=== PATIENT | female | born 1970 | race Caucasian/White ===

== ENCOUNTER 2016-08-16 10:15 | Emergency (ER) | payer BC ==
[~2016-08-16] VITALS: Ht 177.8 cm; Wt 130.2 kg
[~2016-08-16 10:15] MED LIST: DCS100C PO; ESTR1TAB24 PO; HYDR1TAB75 PO; IBP800T PO; KETO-22 PO; LEVO250T PO; LVT.05T PO; NAPR-243 PO; PHEN-452 PO; RIZA10TA37 PO; SPIR25TA PO; TOPI100T11 PO; TRM50T PO
--- OUTSIDE RECORDS SUMMARY | 2016-08-16 10:22 | XMS REPORT | Continuity of Care Document ---
Author Author [facility] Organization [facility] Address Unknown Phone Unavailable Care Team Providers Care Display Artist Name Role Phone SUREKHA GAUTHIER MD PCP Insurance Providers Payer Name Policy Number Subscriber Name Relationship [facility] [id number] Ebony Light 18 Self / Same As Patient Advance Directives Directive Response Recorded Date/Time Advance Directives No 02/20/16 10:32am Health Care Power of Meteorological Engineer No 02/20/16 10:32am Organ Donor Yes 02/20/16 10:32am Resuscitation Status Full Code 02/20/16 10:32am Chief Complaint and Reason for Visit Chief Complaint Upper Extremity Reason for Visit [id number] Fall Knee contusion Problems Active Problems Medical Problem Onset Date Status Fall Unknown Acute Knee contusion Unknown Acute Wrist sprain Unknown Acute Medications Current Home Medications Medication Dose Units Route Directions Days/Qty Instructions Start Date Estradiol 1 Mg 1 Mg Oral Daily 09/16/10 Levothyroxine Sodium (Levothroid) 50 Mcg 1 Each Oral Daily 09/12/12 Topiramate 100 Mg 100 Mg Oral Twice A Day 11/04/15 Phentermine Hcl 30 Mg 30 Mg Oral Daily 11/04/15 Rizatriptan Benzoate 10 Mg 10 Mg Oral As Needed as needed for Migraine 11/04/15 Topiramate 100 Mg 100 Mg Oral Twice A Day 02/20/16 Spironolactone 25 Mg 25 Mg Oral Daily 02/20/16 Past Home Medications Medication Directions Ordered Status Docusate Sodium 100 Mg Capsule, 100 Mg Oral Twice A Day 09/21/10 Discontinued Levofloxacin 250 Mg Tab, 250 Mg Oral Daily 09/21/10 Discontinued Ibuprofen 800 Mg Tab, 800 Mg Oral Every 6 Hours 09/21/10 Discontinued Acetaminophen/Hydrocodone Bitart (Lorcet Plus) 1 Each Tablet, 1 - 2 Each Oral Every 3 Hours as needed 09/21/10 Discontinued Naproxen 500 Mg Tablet, 1 Each Oral Three Times A Day And Prn 07/03/11 Discontinued Tramadol Hcl 50 Mg Tab, 50 Mg Oral Q4-6HOURS as needed 07/03/11 Discontinued Ketorolac Tromethamine 10 Mg Tablet, 10 Mg Oral Every 8HRS as needed Discontinued Social History Social History Problem Response Recorded Date/Time Alcohol Use Denies Use 09/12/2012 7:14pm Recreational Drug Use No 09/12/2012 7:14pm Recent Foreign Travel No 02/20/2016 10:28am Recent Infectious Disease Exposure No 02/20/2016 10:28am Sexually Transmitted Disease No 02/20/2016 10:32am Smoking Status Never a Smoker 02/20/2016 10:32am Query Response Start Date Stop Date Smoking Status Never a Smoker Hospital Discharge Instructions No hospital discharge instructions. Plan of Care Discharge Date 02/20/16 11:34am Disposition 01 HOME, SELF-CARE Condition at Discharge Improved Instructions/Education Provided Wrist Injury (DC) Prescriptions See Medication Section Referrals SUREKHA GAUTHIER MD - Primary Care Physician SENAIT NEGRON DO - Additional Instructions/Education 1. Tylenol and Motrin for pain 2. Wear the wrist splint for the next 3 days 3. Use an ice pack to the wrist for 20 minutes every 2-3 hours 4. If pain in the thumb persists beyond a week, follow up with Dr Negron ( hand surgeon) for further evaluation 3. All discharge instructions reviewed with patient and/or family. Voiced understanding. Functional Status No functional status results. Allergies, Adverse Reactions, Alerts Allergen Type Severity Reaction Status Last Updated Erythromycin base Allergy Mild ABD PAIN Active 07/20/09 OPIATES Allergy Mild Active 07/20/09 Immunizations No immunization records. Vital Signs Acute Vital Signs Vital Response Date/Time Temperature (Fahrenheit) 96.4 degrees F (97.6 - 99.5) 02/20/2016 10:28am Temperature (Calculated Celsius) 35.30743 degrees C (36.4 - 37.5) 02/20/2016 10:28am Temperature Source Temporal 02/20/2016 10:28am Pulse Rate (adult) 106 bpm (60 - 90) 02/20/2016 10:28am Respiratory Rate 22 bpm (12 - 24) 02/20/2016 10:28am O2 Sat by Pulse Oximetry 100 % (88 - 100) 02/20/2016 10:28am Blood Pressure 142/85 mm Hg 02/20/2016 10:28am Blood Pressure Mean 104 mm Hg 02/20/2016 10:28am Pain Numeric Pain Scale 8 02/20/2016 10:28am Height (Feet) 5 feet 02/20/2016 10:28am Height (Inches) 8.00 inches 02/20/2016 10:28am Height (Calculated Centimeters) 172.856450 cm 02/20/2016 10:28am Weight (Pounds) 282 pounds 02/20/2016 10:28am Weight (Ounces) 0.0 oz 02/20/2016 10:28am Weight (Calculated Grams) 197789.050 gm 02/20/2016 10:28am Weight (Calculated Kilograms) 127.668909 kilograms 02/20/2016 10:28am Calculated BMI 42.9 02/20/2016 10:28am Capillary Refill Capillary Refill Less Than 3 Seconds 02/20/2016 10:28am Results No known relevant diagnostic tests, laboratory data and/or discharge summary. Procedures No known history of procedures. Encounters Encounter Location Arrival/Admit Date Discharge/Depart Date Attending Provider Departed Emergency Room [facility] 02/20/16 10:22am 11:34am VARGAS WREN APRN Recent Diagnosis
--- NOTE | 2016-08-16 11:03 | ED Lower Extremity ---
General Chief Complaint: Lower Extremity Stated Complaint: FALL RIGHT KNEE/LEG PAIN Nursing Triage Note: AMB TO ROOM WITH CRUTCHES NUCLEAR PHYSICIAN TRIPPED AND FELL ON R KNEE PAIN AFTER DID NOT TAKE ANY OTC MEDS FOR PAIN Nursing Sepsis Screen: No Definite Risk Source: patient History of Present Illness Time seen by provider: 10:47 Initial Comments PT ARRIVES VIA POV FROM HOME, USING CRUTCHES PT STATES SHE TRIPPED AND FELL, LANDING ON RIGHT KNEE ON CARPET OCCURRED IMMEDIATELY PRIOR TO ARRIVAL NO OTHER INJURIES NO PREVIOUS INJURIES OR PROBLEMS WITH THIS KNEE NO PARESTHESIAS OR MOTOR DEFICITS PCP: DR. GAUTHIER Allergies and Home Medications Allergies Coded Allergies: erythromycin base (Unverified Allergy, Mild, ABD PAIN, 07/20/09) Uncoded Allergies: OPIATES (Allergy, Mild, 07/20/09) Home Medications Estradiol 1 Mg Tablet 1 MG PO DAILY (Reported) Levothyroxine Sodium 50 Mcg Tablet 1 EACH PO DAILY (Reported) Rizatriptan Benzoate 10 Mg Tablet 10 MG PO PRN PRN PRN MIGRAINE (Reported) Topiramate 100 Mg Tablet 100 MG PO BID (Reported) Constitutional: no symptoms reported Musculoskeletal: see HPI Skin: no symptoms reported Psychiatric/Neurological: No Symptoms Reported Past Ycmreib-Luuxai-Ylakkh Hx Patient Social History Alcohol Use: Denies Use Recreational Drug Use: No Smoking Status: Never a Smoker Recent Foreign Travel: No Contact w/Someone Who Travel: No Recent Infectious Disease Expo: No Recent Hopitalizations: No Physical Abuse Screen: No Sexual Abuse: No Immunizations Up To Date Date of Influenza Vaccine: Apr 22, 2016 Seasonal Allergies Seasonal Allergies: No Surgeries HX Surgeries: Yes (CYSTOSCOPY, LEFT THYROIDECTOMY; CYSTOSCOPY) Surgeries: Bladder Surgery, Hysterectomy, Thyroidectomy, Tonsillectomy Respiratory Hx Respiratory Disorders: No Cardiovascular Hx Cardiac Disorders: No Neurological Hx Neurological Disorders: Yes Neurological Disorders: Headaches /Migraines Reproductive System Hx Reproductive Disorders: No (cystoscopy) Sexually Transmitted Disease: No PRIMER CHARGER History: Hysterectomy Genitourinary Hx Genitourinary Disorders: Yes (BEVERLY., CYSTOSCOPY) Genitourinary Disorders: UTI-Chronic Gastrointestinal Hx Gastrointestinal Disorders: No Musculoskeletal Hx Musculoskeletal Disorders: No Endocrine Hx Endocrine Disorders: Yes Endocrine Disorders: Hypothyroidsim HEENT HX ENT Disorders: No Cancer Hx Cancer: No Psychosocial Hx Psychiatric Problems: No Integumentary HX Skin/Integumentary Disorder: No Blood Transfusions Hx Blood Disorders: No Physical Exam Vital Signs Vital Sign - Last 12Hours 08/16/16 10:27 Temp 98.6 Pulse 96 Resp 18 B/P 134/80 Pulse Ox 98 O2 Delivery Room Air Capillary Refill : Less Than 3 Seconds General Appearance: no apparent distress obese Hips: bilateral hip non-tender, bilateral hip normal inspection, bilateral hip normal range of motion, bilateral hip no evidence of injury Legs: bilateral leg non-tender, bilateral leg normal inspection, bilateral leg normal range of motion, bilateral leg no evidence of injury Knees: left knee normal inspection, right knee bone tenderness, right knee ecchymosis, right knee soft tissue tenderness, right knee swelling, right knee other (UNABLE TO DETERMINE LIGAMENT LAXITY DUE TO PT DISCOMFORT AND BODY HABITUS ) Ankles: bilateral ankle non-tender, bilateral ankle normal inspection, bilateral ankle normal range of motion, bilateral ankle no evidence of injury Feet: bilateral foot non-tender, bilateral foot normal inspection, bilateral foot normal range of motion, bilateral foot no evidence of injury Neurologic/Tendon: normal sensation normal motor functions normal tendon functions Neurologic/Psychiatric: vermin exterminator II-XII nml as tested no motor/sensory deficits alert normal mood/affect oriented x 3 Skin: normal color warm/dry Progress/Results/Core Measures Results/Orders My Orders Orders-SEAN CLANCY DO Knee, Right, 3 Views (08/16/16 10:49) Vital Signs/I&O Vital Sign - Last 12Hours 08/16/16 10:27 Temp 98.6 Pulse 96 Resp 18 B/P 134/80 Pulse Ox 98 O2 Delivery Room Air Blood Pressure Mean: 98 Diagnostic Imaging Comments XRAYS RIGHT KNEE--NO ACUTE PROCESS, PER RADIOLOGIST REPORT @ 1133 Reviewed: Reviewed by Me Departure Impression Impression: Primary Impression: Contusion of right knee, initial encounter Disposition: HOME, SELF-CARE Condition: Stable Departure-Patient Inst. Referrals: SUREKHA GAUTHIER MD (PCP/Family) Primary Care Physician Patient Instructions: Knee Sprain (DC) Add. Discharge Instructions: ICE TO AREA AT 20 MINUTE INTERVALS MEREDITH WRAP AND CRUTCHES NEEDED FOR COMFORT ELEVATE LEG MUCH POSSIBLE FOLLOW UP WITH YOUR DR IN 1 WEEK IF NO BETTER All discharge instructions reviewed with patient and/or family. Voiced understanding. SEAN CLANCY DO Aug 16, 2016 11:03
--- NOTE | 2016-08-16 11:32 | Diagnostic Imaging Report ---
INDICATION: Right knee injury after a fall 3 views of the right knee show no fracture or dislocation. IMPRESSION: Negative right knee Dictated by: Dictated on workstation # [id number]
[2016-08-16 11:50] VITALS: BP 134/80
== END 2016-08-16 11:53 | disposition home or self-care (01) ==
LOC: EDUNIT# 10:15 → ER 10:18
DX: S80.01XA Contusion of right knee, initial encounter (principal); W01.0XXA Fall on same level from slipping, tripping and stumbling without subsequent striking against object, initial encounter; Y92.009 Unspecified place in unspecified non-institutional (private) residence as the place of occurrence of the external cause; Y99.8 Other external cause status
CPT/HCPCS: 73562

== ENCOUNTER → 2016-10-24 | Outpatient (CLI) | payer BC ==
--- NOTE | 2016-10-24 19:15 | Diagnostic Imaging Report ---
INDICATION: Digital mammogram bilateral screening. This study was compared to the prior exams of 10/22/15, 10/20/14 and 10/06/13. At this time, there are no current complaints. The current study was also evaluated with a Computer Aided Detection (CAD) system. FINDINGS: Fibroglandular tissue in both breasts is heterogeneously dense. This does limit the sensitivity of this exam. Deep in the mid medial aspect of the right breast on the craniocaudad view approximately 11 cm from the nipple, there is a vague 1 cm density. There may be a corresponding density just superior to the nipple line on the MLO view. This density may merely be secondary to fibroglandular tissue. Even so, I would recommend that a compression view of this area be obtained in the CC and MLO projections for further study. A true lateral view should also be performed. If this density persists, then ultrasound may be necessary as well. The overall appearance of the breasts is otherwise no different. There is no primary or secondary sign of malignancy noted. IMPRESSION: Additional mammographic views of the right breast would be recommended for further study. Ultrasound may also be necessary. ACR BI-RADS Category 0: Incomplete. (Needs additional imaging evaluation). Result letter will be mailed to the patient. Note: At least 10% of breast cancer is not imaged by mammography. Dictated by: Dictated on workstation # [id number]
== END ==
LOC: RAD 08:17
PROVIDERS: ATTEND Obstetrics & Gynecology
DX: Z12.31 Encounter for screening mammogram for malignant neoplasm of breast (principal)
CPT/HCPCS: 77067

== ENCOUNTER → 2016-10-27 | Outpatient (CLI) | payer BC ==
--- NOTE | 2016-10-27 09:58 | Diagnostic Imaging Report ---
Right breast diagnostic mammogram. CAD is utilized. INDICATION: Focal asymmetry in the medial upper aspect of the right breast. COMPARISON: 10/24/2016, and other prior exams submitted. FINDINGS: Focal asymmetry is persistent with faint density along the upper medial aspect of the right breast measuring 1 cm. It has lobulated margins. IMPRESSION: Persistent lobulated focal asymmetry in the upper medial aspect of the right breast. Ultrasound evaluation pending. ACR BI-RADS Category 0: Incomplete. (Needs additional imaging evaluation). Result letter will be mailed to the patient. Note: At least 10% of breast cancer is not imaged by mammography. Dictated by: Dictated on workstation # [id number]
--- NOTE | 2016-10-27 19:49 | Diagnostic Imaging Report ---
EXAMINATION: Right breast ultrasound. INDICATION: Focal asymmetry in the upper mid aspect of the right breast. FINDINGS: At the 2 o'clock zone, 6 cm from the nipple, there is a 1.2 x 0.6 x 0.9 cm elongated simple-appearing cyst seen matching the mammographic abnormality. The four quadrants and retroareolar region demonstrate no other abnormality. IMPRESSION: The focal asymmetry seen on mammography is a simple cyst. No suspicious lesion. Annual screening mammograms recommended. ACR BI-RADS Category 2: Benign findings. Dictated by: Dictated on workstation # [id number]
== END ==
LOC: RAD 09:05
PROVIDERS: ATTEND Obstetrics & Gynecology
DX: N60.01 Solitary cyst of right breast (principal)
CPT/HCPCS: 76641

== ENCOUNTER 2017-06-12 11:38 | Outpatient (CLI) | payer BC ==
[~2017-06-12 11:38] MED LIST changes: -PHEN-452 PO; +PHEN30CA2 PO
== END 2017-06-12 12:08 | disposition home or self-care (01) ==
LOC: SLEEP 11:38
PROVIDERS: ATTEND Nurse Practitioner Family
DX: G47.10 Hypersomnia, unspecified (principal); G47.9 Sleep disorder, unspecified; R53.83 Other fatigue; R51 Headache

== ENCOUNTER 2017-07-29 08:46 | Emergency (ER) | payer OTHER, BC ==
[~2017-07-29] VITALS: Ht 172.7 cm; Wt 134.7 kg
--- OUTSIDE RECORDS SUMMARY | 2017-07-29 08:50 | XMS REPORT ---
Author JEFF Wing Organization [employer] Address Unknown Phone Unavailable Care Team Providers Care [facility] Name Role Phone JEFF MADDOX CP Unavailable Allergies, Adverse Reactions, Alerts Substance Reaction Event Type Erythromycin Info Not Available Drug Allergy Opiods Info Not Available Non Drug Allergy Problems Problem Type Condition Code Onset Dates Condition Status Assessment Sore throat J02.9 Active Medications Medication Code System Code Instructions Start Date End Date Status Dosage Spironolactone [facility] [address]-25 25 MG Orally Once a day 1 tablet Levothyroxine Sodium [facility] [address]-98 25 MCG Orally Once a day 1 tablet on an empty stomach in the morning Rizatriptan Benzoate [facility] [address]-87 10 MG Orally Once a day 1 tablet as needed one time Phentermine HCl [facility] [address]-54 30 MG Orally Once a day 1 capsule Vitamin D (Cholecalciferol) [facility] [address] 1000 UNIT Orally Once a day 1 capsule Calcium ND 0 Oral 1 tab Estradiol [facility] [address]-58 1 MG Orally Daily for Three Weeks, 1 Week off 1 tablet Topiramate [facility] [address]-93 100 MG Orally Twice a day 1 tablet Procedures Procedure Coding System Code Date BICILLIN LA/PENICILLIN G BENZATHINE CPT-4 J0561 Mar 21, 2016 THER/PROPH/DIAG INJ, SC/IM CPT-4 26243 Mar 21, 2016 STREP A ASSAY W/OPTIC CPT-4 99665 Mar 21, 2016 Office Visit, Est Pt., Level 3 CPT-4 67891 Mar 21, 2016 Vital Signs Date/Time: Mar 21, 2016 Blood Pressure Systolic 126 mmHg Cardiac Monitoring Heart Rate 86 bpm Weight 284.6 lbs Blood Pressure Diastolic 76 mmHg Results No Known Results Summary Purpose [employer] Submission
--- OUTSIDE RECORDS SUMMARY | 2017-07-29 08:50 | XMS REPORT ---
Author Author MABLE PARSON [facility] Address [address] [place] [address] Care Team Providers Care Ruby Rails Developer Name Role Phone MABLE PARSON Unavailable PROBLEMS Unknown Problems ALLERGIES Substance Reaction Event Type Date Status Erythromycin Unknown Drug Allergy Aug, Active Opiods Unknown Non Drug Allergy Aug, Active SOCIAL HISTORY No smoking Hx information available PLAN OF CARE VITAL SIGNS Height 68 in 2016-08-23 Weight 291.8 lbs 2016-08-23 Temperature 98.3 degrees Fahrenheit 2016-08-23 Heart Rate 80 bpm 2016-08-23 Respiratory Rate 18 2016-08-23 BMI 44.36 kg/m2 2016-08-23 Blood pressure systolic 130 mmHg 2016-08-23 Blood pressure diastolic 82 mmHg 2016-08-23 MEDICATIONS Medication Instructions Dosage Frequency Start Date End Date Duration Status Levothyroxine Sodium 25 MCG Orally Once a day 1 tablet on an empty stomach in the morning 24h Active Topiramate 100 MG Orally Twice a day 1 tablet 12h Active Estradiol 1 MG Orally Daily for Three Weeks, 1 Week off 1 tablet Active Amoxicillin 500 MG Orally 3 times a day 1 capsule 8h Aug, Aug, 10 day(s) Active Calcium 1 tab Active Rizatriptan Benzoate 10 MG Orally Once a day 1 tablet as needed one time 24h Active Vitamin D (Cholecalciferol) 1000 UNIT Orally Once a day 1 capsule 24h Active RESULTS Name Result Date Reference Range STREP A (IN HOUSE) 2016-08-23 STREP A negative Control + Lot # [id number] Exp date mar 09 PROCEDURES Procedure Date Ordered Related Diagnosis Body Site STREP A ASSAY W/OPTIC Aug 23, 2016 Office Visit, Est Pt., Level 3 Aug 23, 2016 IMMUNIZATIONS No Known Immunizations
--- OUTSIDE RECORDS SUMMARY | 2017-07-29 08:50 | XMS REPORT ---
Author Author SWAPNIL RAGLAND Organization [employer] Address Unknown Phone Unavailable Care Team Providers Care Desilverizer Name Role Phone SWAPNIL RAGLAND CP Unavailable Allergies, Adverse Reactions, Alerts Substance Reaction Event Type Erythromycin Info Not Available Drug Allergy Opiods Info Not Available Non Drug Allergy Problems Problem Type Condition Code Onset Dates Condition Status Assessment Contusion of right breast, initial encounter S20.01XA Active Medications Medication Code System Code Instructions Start Date End Date Status Dosage Estradiol [facility] [address]-66 1 MG Orally Daily for Three Weeks, 1 Week off 1 tablet Topiramate [facility] [address]-29 100 MG Orally Twice a day 1 tablet Calcium ND 0 Oral 1 tab Levothyroxine Sodium [facility] [address]-96 25 MCG Orally Once a day 1 tablet on an empty stomach in the morning Keflex [facility] [address]-22 500 MG Orally three times daily Jun 06, 2016 Jun 16, 2016 1 capsule Rizatriptan Benzoate [facility] [address]-61 10 MG Orally Once a day 1 tablet as needed one time Phentermine HCl [facility] [address]-74 30 MG Orally Once a day 1 capsule Vitamin D (Cholecalciferol) [facility] [address]64[address] 1000 UNIT Orally Once a day 1 capsule Procedures Procedure Coding System Code Date Office Visit, Est Pt., Level 3 CPT-4 80297 Jun 06, 2016 Vital Signs Date/Time: Jun 06, 2016 Cardiac Monitoring Heart Rate 84 bpm Weight 287.2 lbs Height 68 in BMI 43.66 Index Blood Pressure Diastolic 88 mmHg Blood Pressure Systolic 140 mmHg Results No Known Results Summary Purpose [employer] Submission
--- OUTSIDE RECORDS SUMMARY | 2017-07-29 08:51 | XMS REPORT ---
Author MANDEEP Gloria [facility] [employer] Address Unknown Phone Unavailable Care Team Providers Care Automotive Artist Name Role Phone MANDEEP GUERRA Unavailable Allergies No Known Allergies Problems Problem Type Condition Code Onset Dates Condition Status Assessment Encounter for immunization Z23 Active Medications No Known Medications Procedures Procedure Coding System Code Date SINGLE IMMUNIZATION ADMIN CPT-4 72438 May 18, 2015 FLUARIX QUAD (3 & UP)-GSK-2014 CPT-4 80081 May 18, 2015 Results No Known Results Immunizations Vaccine Administration Date FLUARIX QUAD (3 & UP)-GSK-2014May 18, 2015 Summary Purpose [employer] Submission
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
[2017-07-29] MEDS ORDERED: KETO10TA PO (10:05)
[2017-07-29] MEDS ORDERED: CYCL10TA9 PO (10:05)
[2017-07-29 10:18] VITALS: BP 145/87
== END 2017-07-29 10:18 | disposition home or self-care (01) ==
LOC: EDUNIT# 08:46 → ER 08:47
DX: S09.90XA Unspecified injury of head, initial encounter (principal); S66.911A Strain of unspecified muscle, fascia and tendon at wrist and hand level, right hand, initial encounter; S19.9XXA Unspecified injury of neck, initial encounter; G43.909 Migraine, unspecified, not intractable, without status migrainosus; E03.9 Hypothyroidism, unspecified; Z87.440 Personal history of urinary (tract) infections; Z77.22 Contact with and (suspected) exposure to environmental tobacco smoke (acute) (chronic); Z90.710 Acquired absence of both cervix and uterus; Z90.89 Acquired absence of other organs; V49.40XA Driver injured in collision with unspecified motor vehicles in traffic accident, initial encounter; Y92.410 Unspecified street and highway as the place of occurrence of the external cause
CPT/HCPCS: 70450; 72125; 73110; 99283

== ENCOUNTER 2017-09-01 07:19 | Emergency (ER) | payer BC ==
[~2017-09-01] VITALS: Ht 172.7 cm; Wt 134.3 kg
[~2017-09-01 07:19] MED LIST changes: +CYCL10TA9 PO; +KETO10TA PO
[2017-09-01] MEDS ORDERED: KETOROLAC 60 MG/2 ML VIAL IM STA (08:00)
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
--- NOTE | 2017-09-01 09:16 | Diagnostic Imaging Report ---
INDICATION: Fall, pain FINDINGS: There is no fracture, dislocation or acute articular incongruity. No convincing evidence for joint effusion. No opaque loose body. IMPRESSION: No acute appearing abnormality. Dictated by: Dictated on workstation # [id number]
--- NOTE | 2017-09-01 09:16 | Diagnostic Imaging Report ---
INDICATION: Fall pain FINDINGS: There is soft tissue swelling about the ankle most notably laterally. Well-corticated chronic calcific densities project distal to the fibula. No acute bony abnormality. There is arthritic changes and endplate calcaneal spurring chronic. IMPRESSION: Lateral swelling, degenerative changes and chronic calcaneal spurring, an acute osseous injury is not apparent. Dictated by: Dictated on workstation # [id number]
[2017-09-01 09:41] VITALS: BP 136/81
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
== END 2017-09-01 09:41 | disposition home or self-care (01) ==
LOC: EDUNIT# 07:19 → ER 07:21
DX: S93.401A Sprain of unspecified ligament of right ankle, initial encounter (principal); S86.912A Strain of unspecified muscle(s) and tendon(s) at lower leg level, left leg, initial encounter; E03.9 Hypothyroidism, unspecified; G43.909 Migraine, unspecified, not intractable, without status migrainosus; Z77.22 Contact with and (suspected) exposure to environmental tobacco smoke (acute) (chronic); Z90.89 Acquired absence of other organs; Z90.710 Acquired absence of both cervix and uterus; Z88.1 Allergy status to other antibiotic agents; Z88.5 Allergy status to narcotic agent; X50.0XXA Overexertion from strenuous movement or load, initial encounter
CPT/HCPCS: 73562; 73610; 96372; 99284

== ENCOUNTER → 2017-09-10 | Outpatient (CLI) | payer BC ==
--- NOTE | 2017-09-10 08:50 | Diagnostic Imaging Report ---
EXAMINATION: Magnetic resonance imaging of the left knee without intravenous contrast DATE: 09/10/2017. COMPARISON: Left knee radiographs 09/01/2017. INDICATION: 47-year-old female, fall on 08/31/2017. Left knee pain. TECHNIQUE: Multiplanar, multisequence non contrast enhanced MR imaging was accomplished. FINDINGS: There are limitations of the exam relating to artifact associated with patient body habitus and low fbioho-yy-vrygf ratio. MENISCI: The medial meniscus is grossly intact. The lateral meniscus is grossly intact. LIGAMENTS AND TENDONS: The anterior and posterior cruciate ligaments are intact. There is a tear of the proximal aspect of the superficial component of the medial collateral ligament complex. The iliotibial band, mid third lateral capsular ligament, fibular collateral ligament, biceps femoris tendon and conjoined tendon are intact. The quadriceps tendon and patella ligament are intact. JOINT: There is a full-thickness cartilage fissure involving the medial patellar facet cartilage best illustrated on axial T2 fat saturation sequence image 6. The medial and lateral compartment cartilage is grossly intact. There is no knee joint effusion, prominent synovitis, or identified intra-articular body. BONE: There is unremarkable bone marrow signal. Specifically, negative for fracture, osteomyelitis, osteonecrosis, or marrow replacing process. BURSAE AND SOFT TISSUES: There is fluid in the popliteus tendon sheath. There is no Castañeda's cyst. There is mild soft tissue edema adjacent to the medial collateral ligament complex. There is mild nonspecific prepatellar subcutaneous edema. IMPRESSION: 1. Tear of the superficial component of the medial collateral ligament complex. 2. Grossly intact medial and lateral meniscus. 3. Intact anterior and posterior cruciate ligaments. Additional ligaments and tendons are intact. 4. Full-thickness cartilage fissure of the medial patellar facet. No knee joint effusion. 5. No acute fracture or bone contusion. Dictated by: Dictated on workstation # [id number]
== END ==
LOC: RAD 07:15
PROVIDERS: ATTEND Nurse Practitioner Family
DX: S83.412A Sprain of medial collateral ligament of left knee, initial encounter (principal); M94.8X8 Other specified disorders of cartilage, other site; W19.XXXA Unspecified fall, initial encounter
CPT/HCPCS: 73721

== ENCOUNTER → 2017-10-30 | Outpatient (CLI) | payer BC, OTHER ==
--- NOTE | 2017-10-30 13:02 | Diagnostic Imaging Report ---
INDICATION: Routine screening. COMPARISON: Comparison is made with prior studies from 10/24/2016 and 10/22/2015. The current study was also evaluated with a Computer Aided Detection (CAD) system. FINDINGS: Moderate parenchymal heterogeneity and increased density is noted. The overall parenchymal pattern appears to be fairly stable. Intramammary lymph node in the outer right breast appears stable. Previously noted density in the medial right breast, shown to represent a cyst, has decreased in size. No new mass or malignant appearing microcalcifications are seen. The axillae are unremarkable. IMPRESSION: No mammographic features suspicious for malignancy are identified. ACR BI-RADS Category 2: Benign findings. Result letter will be mailed to the patient. Note: At least 10% of breast cancer is not imaged by mammography. Dictated by: Dictated on workstation # [id number]
== END ==
LOC: RAD 08:22
PROVIDERS: ATTEND Obstetrics & Gynecology
DX: Z12.31 Encounter for screening mammogram for malignant neoplasm of breast (principal)
CPT/HCPCS: 77067

== ENCOUNTER 2018-05-10 23:51 | Emergency (ER) | payer BC ==
[~2018-05-10] VITALS: Ht 172.7 cm; Wt 132.0 kg
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
[2018-05-11] MEDS ORDERED: RX-CIPROFLOXACIN (CILOXAN) 0.3% OP SOLN 2.5 ML OP STA (00:37)
[2018-05-11] MEDS ORDERED: NF-CIPDEC OT (00:43)
--- NOTE | 2018-05-11 00:44 | ED EENT ---
History of Present Illness General Chief Complaint: Ear Problems Stated Complaint: BUG IN RT EAR-MOVING AROUND Nursing Triage Note: AMBULATORY TO ED WITH C/O GARCÍA IN RIGHT EAR. 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 ALSO USED SHEREE PIN TO TRY TO DIG OUT GARCÍA. Source: patient History of Present Illness Date Seen by Provider: May 11, 2018 Time Seen by Provider: 23:58 Initial Comments PT ARRIVES VIA POV FROM HOME STATES 10 MINUTES AGO, SHE FELL ASLEEP IN RECLINER, AND FELT A "GARCÍA" CRAWL IN HER RIGHT EAR SHE STATES SHE SQUIRTED WATER IN HER EAR AND THEN TRIED TO GET IT OUT WITH A SHEREE PIN--STATES SHE KEPT DIGGING IN HER EAR TO TRY TO GET IT OUT, WITHOUT SUCCESS STATES IT HAS QUIT MOVING NOW NO CHANGE IN HEARING PCP: DR. GAUTHIER Allergies and Home Medications Allergies Coded Allergies: erythromycin base (Unverified Allergy, Mild, ABD PAIN, 07/20/09) Uncoded Allergies: OPIATES (Allergy, Mild, 07/20/09) Home Medications Ciprofloxacin HCl/Dexameth 7.5 Ml Soln, 5 DROPS OT BID Prescribed by: SEAN CLANCY on 05/11/18 0043 Cyclobenzaprine HCl 10 Mg Tablet, 10 MG PO Q8H PRN for SPASMS Prescribed by: ROBBIE SIMONS on 07/29/17 1005 Estradiol 1 Mg Tablet, 1 MG PO DAILY, (Reported) Ketorolac Tromethamine 10 Mg Tablet, 10 MG PO Q8H PRN for PAIN-MILD TO MODERATE Prescribed by: ROBBIE SIMONS on 07/29/17 1005 Levothyroxine Sodium 50 Mcg Tablet, 1 EACH PO DAILY, (Reported) Rizatriptan Benzoate 10 Mg Tablet, 10 MG PO PRN PRN for MIGRAINE, (Reported) Topiramate 100 Mg Tablet, 100 MG PO BID, (Reported) Patient Home Medication List Home Medication List Reviewed: Yes Review of Systems Review of Systems Constitutional: no symptoms reported; No dizziness Ears: See HPI; Denies Dizziness, Denies Bloody Discharge, Denies Clear Discharge, Denies Purulent Discharge Neurological: No Symptoms Reported Past Nllgrie-Yimmci-Zvhfgz Hx Patient Social History Alcohol Use: Occasionally Uses Recreational Drug Use: No Smoking Status: Never a Smoker 2nd Hand Smoke Exposure: Yes Recent Foreign Travel: No Contact w/Someone Who Travel: No Recent Infectious Disease Expo: No Recent Hopitalizations: No Immunizations Up To Date Tetanus Booster (TDap): Less than 5yrs Date of Influenza Vaccine: Apr 22, 2016 Seasonal Allergies Seasonal Allergies: No Past Medical History Surgeries: Yes (CYSTOSCOPY, LEFT THYROIDECTOMY; BMT'S AGE 8; BLADDER SUSPENSION ; HYST/BSO) Bladder Surgery, Section, Ear Surgery, Hysterectomy, Oophorectomy, Thyroidectomy, Tonsillectomy, Tubal Ligation Respiratory: No Cardiac: No Neurological: Yes Headaches /Migraines Reproductive Disorders: Yes Female Reproductive Disorders: Menstrual Problems 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 0oz. 131.329825vx; 42.9 BMI Method:Stated General Appearance: WD/WN, no apparent distress Ears: right ear other (INFERIOR ASPECT OF RIGHT EAR CANAL WITH BLEEDING FROM ABRASION. + INSECT PARTS VISIBLE ; NO PURULENT DRAINAGE); left ear auricle normal, left ear canal normal, left ear TM normal Neurologic/Psychiatric: lens hardener II-XII nml as tested, no motor/sensory deficits, alert, normal mood/affect, oriented x 3 Procedures/Interventions Ear : Ear Location: Right Foreign Body Removal: FB in the Ear Canal Use of: Ear Curette, Irrigation Medications: NO EAR DROPS CURRENTLY AVAILABLE TONIGHT IN ER. WILL SEND HOME WITH RX Progress/Conclusion IRRIGATION AND REMOVAL ATTEMPTS WITH PLASTIC CURETTE UNSUCCESSFUL, PT UNABLE TO TOLERATE. Progress/Results/Core Measures Results/Orders My Orders Orders - SEAN CLANCY DO Neomy/Poly/Hc Otic Suspension (Cortispor (05/11/18 09:00) Rx-Ciprofloxacin Ophth Soln (Rx-Ciloxan (05/11/18 00:37) Vital Signs/I&O 05/11/18 00:00 Temp 97.7 Pulse 96 Resp 17 B/P (MAP) 144/84 (104) Blood Pressure Mean: 104 Departure Impression Primary Impression: Foreign body in right ear Additional Impression: Abrasion of right ear canal Disposition: HOME, SELF-CARE Condition: Stable Departure-Patient Inst. Referrals: ABE THOMAS MD, FLOYD R MD (PCP/Family) Primary Care Physician Patient Instructions: Foreign Body in Ear, Child (DC), How to Use Ear Drops, Outer Ear Infection (DC) Add. Discharge Instructions: USE EAR DROPS PRESCRIBED DO NOT PUT ANYTHING IN EAR EXCEPT THE DROPS TYLENOL AND MOTRIN NEEDED FOR PAIN FOLLOW UP WITH DR. THOMAS IN 3-4 DAYS FOR FURTHER CARE All discharge instructions reviewed with patient and/or family. Voiced understanding. Scripts Ciprofloxacin HCl/Dexameth (Ciprodex Otic Suspension) 7.5 Ml Soln 5 DROPS OT BID, #1 EA Prov: SEAN CLANCY DO 05/11/18 SEAN CLANCY DO May 11, 2018 00:43
[2018-05-11 00:48] VITALS: BP 144/84
[2018-05-11] MEDS ORDERED: NEOMY/POLYM/HC (CORTISPORIN) 10 ML BTL OT SCH (09:00)
== END 2018-05-11 00:49 | disposition home or self-care (01) ==
LOC: EDUNIT# 23:51 → ER 23:53
DX: T16.1XXA Foreign body in right ear, initial encounter (principal); S00.411A Abrasion of right ear, initial encounter; G43.909 Migraine, unspecified, not intractable, without status migrainosus; E66.9 Obesity, unspecified; E03.9 Hypothyroidism, unspecified; Z68.41 Body mass index [BMI] 40.0-44.9, adult; Z90.710 Acquired absence of both cervix and uterus; Z87.440 Personal history of urinary (tract) infections; Z88.0 Allergy status to penicillin; Z88.8 Allergy status to other drugs, medicaments and biological substances; Z77.22 Contact with and (suspected) exposure to environmental tobacco smoke (acute) (chronic); Z98.890 Other specified postprocedural states; Z98.51 Tubal ligation status
CPT/HCPCS: 69200

== ENCOUNTER → 2018-05-15 | Outpatient (CLI) | payer BC ==
[~2018-05-15] MED LIST changes: +NF-CIPDEC OT
[2018-05-15 11:17] LABS: FREE T4 (FREE THYROXINE) 0.96 NG/DL (0.70-1.48)
== END ==
LOC: LAB 10:26
PROVIDERS: ATTEND Family Medicine
DX: E03.9 Hypothyroidism, unspecified (principal)
CPT/HCPCS: 36415; 84439; 84443; 84481

== ENCOUNTER 2018-05-29 11:05 | Day surgery (SDC) | payer BC ==
[~2018-05-29] VITALS: Ht 172.7 cm; Wt 127.5 kg
--- NOTE | 2018-05-29 12:52 | ED General ---
General Chief Complaint: Abdominal/GI Problems Stated Complaint: BACK PAIN Nursing Triage Note: pt presents to ed with complaints of back pain that radiates to the middler upper portion of the abdomen. pt woke up with this pain at 0300 today. pt also reports v/d staring today. Nursing Sepsis Screen: No Definite Risk Source of Information: Patient Exam Limitations: No Limitations History of Present Illness Date Seen by Provider: May 29, 2018 Time Seen by Provider: 12:30 Initial Comments The patient is a 47-year-old white female who presents with a chief complaint of thoracic level back pain. She reports that she was awakened at about 0300 this morning. The pain caused her to get up and attempt to walk about. She got in the shower and took a hot shower but then vomited. She has subsequently vomited again. 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 This involved carrying lots of materials out of a trailer. She had been having some lumbar level back pain for several days and this appeared to be improving. She reports that the thoracic level pain seems to come clear around her chest on both sides. She has no known heart disease. She reports that she had a total hysterectomy and oophorectomy in 2008. She currently takes estrogen for hot flashes. Timing/Duration: 12-24 Hours Associated Systoms: Nausea/Vomiting Allergies and Home Medications Allergies Coded Allergies: erythromycin base (Unverified Allergy, Mild, ABD PAIN, 07/20/09) Uncoded Allergies: OPIATES (Allergy, Mild, 07/20/09) Home Medications Ciprofloxacin HCl/Dexameth 7.5 Ml Soln, 5 DROPS OT BID Prescribed by: SEAN CLANCY on 05/11/18 0043 Cyclobenzaprine HCl 10 Mg Tablet, 10 MG PO Q8H PRN for SPASMS Prescribed by: ROBBIE SIMONS on 07/29/17 1005 Estradiol 1 Mg Tablet, 1 MG PO DAILY, (Reported) Ketorolac Tromethamine 10 Mg Tablet, 10 MG PO Q8H PRN for PAIN-MILD TO MODERATE Prescribed by: ROBBIE SIMONS on 07/29/17 100 Levothyroxine Sodium 50 Mcg Tablet, 1 EACH PO DAILY, (Reported) Rizatriptan Benzoate 10 Mg Tablet, 10 MG PO PRN PRN for MIGRAINE, (Reported) Topiramate 100 Mg Tablet, 100 MG PO BID, (Reported) Patient Home Medication List Home Medication List Reviewed: Yes Review of Systems Review of Systems Constitutional: see HPI EENTM: no symptoms reported Respiratory: no symptoms reported Cardiovascular: chest pain Gastrointestinal: abdominal pain, nausea, vomiting Genitourinary: no symptoms reported Musculoskeletal: no symptoms reported Skin: no symptoms reported Psychiatric/Neurological: No Symptoms Reported Hematologic/Lymphatic: No Symptoms Reported Past Cciqbgl-Cprlou-Vbxnvl Hx Patient Social History Alcohol Use: Occasionally Uses Recreational Drug Use: No Smoking Status: Never a Smoker 2nd Hand Smoke Exposure: Yes Recent Foreign Travel: No Contact w/Someone Who Travel: No Recent Infectious Disease Expo: No Recent Hopitalizations: No Physical Abuse: No Sexual Abuse: No Mistreated: No Fear: No Immunizations Up To Date Tetanus Booster (TDap): Less than 5yrs Date of Influenza Vaccine: Apr 22, 2016 Seasonal Allergies Seasonal Allergies: No Past Medical History Surgeries: Yes (CYSTOSCOPY, LEFT THYROIDECTOMY; BMT'S AGE 8; BLADDER SUSPENSION ; HYST/BSO) Bladder Surgery, Section, Ear Surgery, Hysterectomy, Oophorectomy, Thyroidectomy, Tonsillectomy, Tubal Ligation Respiratory: No Cardiac: No Neurological: Yes Headaches /Migraines Reproductive Disorders: Yes Female Reproductive Disorders: Menstrual Problems SMOKE EATER History: Hysterectomy Sexually Transmitted Disease: No Genitourinary: Yes UTI-Chronic Gastrointestinal: No Musculoskeletal: Yes Back Injury, Chronic Back Pain Endocrine: Yes (OBEISTY) Hypothyroidsim HEENT: Yes (BMT'S AGE 8, RUPTURED EAR DRUM AGE 9) Cancer: No Psychosocial: No Integumentary: No Blood Disorders: No Family Medical History No Pertinent Family Hx Physical Exam Vital Signs Vital Signs - First Documented 05/29/18 11:44 Temp 98.1 Pulse 86 Resp 20 B/P (MAP) 145/80 (101) Pulse Ox 99 Capillary Refill : Less Than 3 Seconds Height, Weight, BMI Height: 5'8.00" Weight: 281lbs. 0oz. 127.631839zb; 42.9 BMI Method:Stated General Appearance: Mild Distress Eyes: Bilateral Eye Normal Inspection HEENT: Normal ENT Inspection Neck: Normal Inspection Respiratory: Chest Non Tender, Lungs Clear, Normal Breath Sounds, No Accessory Muscle Use, No Respiratory Distress Cardiovascular: Regular Rate, Rhythm, No Edema, No Gallop, No JVD, No Murmur, Normal Peripheral Pulses Gastrointestinal: Normal Bowel Sounds, No Organomegaly, No Pulsatile Mass, Non Tender, Soft Back: Normal Inspection, No CVA Tenderness, No Vertebral Tenderness Extremity: Normal Capillary Refill, Normal Inspection, Normal Range of Motion, Non Tender, No Calf Tenderness, No Pedal Edema Skin: Normal Color, Warm/Dry Lymphatic: No Adenopathy Progress/Results/Core Measures Suspected Sepsis Recent Fever Within 48 Hours: No Infection Criteria Present: None New/Unexplained Altered Menta: No Sepsis Screen: No Definite Risk SIRS Temperature:98.1 Pulse: 86 Respiratory Rate: 20 Laboratory Tests 05/29/18 11:42: White Blood Count 7.6 Blood Pressure 145 /80 Mean: 101 Laboratory Tests 05/29/18 11:42: Creatinine 0.73, Platelet Count 321, Total Bilirubin 1.5H Results/Orders Lab Results Laboratory Tests Test 05/29/18 11:42 05/29/18 14:10 Range/Units White Blood Count 7.6 4.3-11.0 10^3/uL Red Blood Count 4.53 4.35-5.85 10^6/uL Hemoglobin 12.4 11.5-16.0 G/DL Hematocrit 38 35-52 % Mean Corpuscular Volume 85 80-99 FL Mean Corpuscular Hemoglobin 27 25-34 PG Mean Corpuscular Hemoglobin Concent 32 32-36 G/DL Red Cell Distribution Width 13.6 10.0-14.5 % Platelet Count 321 130-400 10^3/uL Mean Platelet Volume 10.6 H 7.4-10.4 FL Neutrophils (%) (Auto) 71 42-75 % Lymphocytes (%) (Auto) 20 12-44 % Monocytes (%) (Auto) 8 0-12 % Eosinophils (%) (Auto) 0 0-10 % Basophils (%) (Auto) 0 0-10 % Neutrophils # (Auto) 5.4 1.8-7.8 X 10^3 Lymphocytes # (Auto) 1.6 1.0-4.0 X 10^3 Monocytes # (Auto) 0.6 0.0-1.0 X 10^3 Eosinophils # (Auto) 0.0 0.0-0.3 10^3/uL Basophils # (Auto) 0.0 0.0-0.1 10^3/uL Sodium Level 142 135-145 MMOL/L Potassium Level 3.1 L 3.6-5.0 MMOL/L Chloride Level 107 98-107 MMOL/L Carbon Dioxide Level 26 21-32 MMOL/L Anion Gap 9 5-14 MMOL/L Blood Urea Nitrogen 9 7-18 MG/DL Creatinine 0.73 0.60-1.30 MG/DL Estimat Glomerular Filtration Rate > 60 BUN/Creatinine Ratio 12 Glucose Level 142 H 70-105 MG/DL Calcium Level 10.0 8.5-10.1 MG/DL Corrected Calcium 9.9 8.5-10.1 MG/DL Total Bilirubin 1.5 H 0.1-1.0 MG/DL Aspartate Amino Transf (AST/SGOT) 560 H 5-34 U/L Alanine Aminotransferase (ALT/SGPT) 518 H 0-55 U/L Alkaline Phosphatase 442 H 40-136 U/L Total Protein 7.5 6.4-8.2 GM/DL Albumin 4.1 3.2-4.5 GM/DL Urine Color YELLOW Urine Clarity CLEAR Urine pH 8 5-9 Urine Specific [place] 1.015 L 1.016-1.022 Urine Protein 1+ H NEGATIVE Urine Glucose (UA) NEGATIVE NEGATIVE Urine Ketones NEGATIVE NEGATIVE Urine Nitrite NEGATIVE NEGATIVE Urine Bilirubin 1+ H NEGATIVE Urine Urobilinogen 8 H NORMAL MG/DL Urine Leukocyte Esterase 1+ H NEGATIVE Urine RBC (Auto) NEGATIVE NEGATIVE Urine RBC NONE /HPF Urine WBC 0-2 /HPF Urine Squamous Epithelial Cells 10-25 H /HPF Urine Crystals PRESENT H /LPF Urine Amorphous Sediment FEW LYNDON PHOSPHATE H /LPF Urine Bacteria FEW H /HPF Urine Casts NONE /LPF Urine Mucus SMALL H /LPF Urine Culture Indicated NO My Orders Orders - TAMIKA MARKS MD Cbc With Automated Diff (05/29/18 12:38) Comprehensive Metabolic Panel (05/29/18 12:38) Ua Culture If Indicated (05/29/18 12:38) [facility] Gallbladder [id number] (05/29/18 14:46) Vital Signs/I&O 05/29/18 11:44 Temp 98.1 Pulse 86 Resp 20 B/P (MAP) 145/80 (101) Pulse Ox 99 Capillary Refill : Less Than 3 Seconds Blood Pressure Mean: 101 Departure Communication (Admissions) Gallbladder sonogram has returned and is positive for acute cholecystitis and laboratory shows secondary hepatitis Discussed with Dr. Bose at 1630. The plan is to admit with cholecystectomy tomorrow morning. Impression Primary Impression: acute cholecystitis Disposition: ADMITTED INPATIENT Condition: Stable/Unchanged Admissions Decision to Admit Reason: Admit from ER (General) Decision to Admit/Date: May 29, 2018 Time/Decision to Admit Time: 16:29 Departure-Patient Inst. Referrals: SUREKHA GAUTHIER MD (PCP/Family) Primary Care Physician TAMIKA MARKS MD May 29, 2018 12:52
[2018-05-29 12:57] LABS: BASOPHILS % (AUTO) 0 % (0-10); EOSINOPHILS % (AUTO) 0 % (0-10); HEMATOCRIT 38 % (35-52); HEMOGLOBIN 12.4 G/DL (11.5-16.0); LYMPHOCYTES # (AUTO) 1.6 X 10^3 (1.0-4.0); LYMPHOCYTES % (AUTO) 20 % (12-44); MEAN CORPUSCULAR HEMOGLOBIN 27 PG (25-34); MEAN CORPUSCULAR HGB CONC 32 G/DL (32-36); MEAN CORPUSCULAR VOLUME 85 FL (80-99); MEAN PLATELET VOLUME 10.6 FL (7.4-10.4); MONOCYTES # (AUTO) 0.6 X 10^3 (0.0-1.0); MONOCYTES % (AUTO) 8 % (0-12); NEUTROPHILS # (AUTO) 5.4 X 10^3 (1.8-7.8); NEUTROPHILS % (AUTO) 71 % (42-75); PLATELET COUNT 321 10^3/uL (130-400); RED BLOOD COUNT 4.53 10^6/uL (4.35-5.85); RED CELL DISTRIBUTION WIDTH 13.6 % (10.0-14.5); WHITE BLOOD COUNT 7.6 10^3/uL (4.3-11.0)
[2018-05-29 13:09] LABS: ALANINE AMINOTRANSFERASE 518 U/L (0-55); ALBUMIN 4.1 GM/DL (3.2-4.5); ALKALINE PHOSPHATASE 442 U/L (40-136); BILIRUBIN,TOTAL 1.5 MG/DL (0.1-1.0); BUN/CREATININE RATIO 12; CARBON DIOXIDE 26 MMOL/L (21-32); CHLORIDE 107 MMOL/L (98-107); CREATININE SERUM 0.73 MG/DL (0.60-1.30); GFR ESTIMATED > 60; GLUCOSE 142 MG/DL (70-105); POTASSIUM 3.1 MMOL/L (3.6-5.0); SODIUM 142 MMOL/L (135-145); TOTAL PROTEIN 7.5 GM/DL (6.4-8.2)
[2018-05-29 14:19] LABS: CLARITY,URINE CLEAR; COLOR,URINE YELLOW; GLUCOSE, URINE (UA) NEGATIVE (NEGATIVE); KETONES,URINE NEGATIVE (NEGATIVE); LEUKOCYTE ESTERASE ,URINE 1+ (NEGATIVE); NITRITE,URINE NEGATIVE (NEGATIVE); PH,URINE 8 (5-9); PROTEIN,URINE 1+ (NEGATIVE); UROBILINOGEN,URINE 8 MG/DL (NORMAL)
[2018-05-29 14:29] LABS: AMORPHOUS SEDIMENT,UR FEW AMOR PHOSPHATE /LPF; BACTERIA,URINE FEW /HPF; WBC,URINE 0-2 /HPF
[2018-05-29 14:31] LABS: BILIRUBIN,URINE 1+ (NEGATIVE)
--- NOTE | 2018-05-29 15:50 | Diagnostic Imaging Report ---
PROCEDURE: US Gallbladder. TECHNIQUE: Multiple Real-time grayscale images were obtained over the right upper quadrant in various projections. INDICATION: Back pain and abdominal pain. FINDINGS: The liver is upper limits of normal in size at 17.7 cm. No discrete liver mass is seen. The portal vein is patent and shows normal direction of flow. The gallbladder contains numerous stones. The gallbladder wall does appear to be thickened at approximately 4 mm. No pericholecystic fluid is seen. No definite biliary ductal dilatation is identified. The pancreas is obscured by bowel gas. The right kidney is unremarkable. There is no ascites. IMPRESSION: Cholelithiasis with findings suggestive of acute cholecystitis. Dictated by: Dictated on workstation # [id number]
[2018-05-29] MEDS ORDERED: KETOROLAC 30 MG/ML VIAL IVP ONE (16:45)
--- NOTE | 2018-05-29 17:23 | Progress Note-Pre Operative ---
Pre-Operative Progress Note H&P Reviewed The H&P was reviewed, patient examined and no changes noted. Date Seen by Provider: May 29, 2018 Time Seen by Provider: 17:20 Date H&P Reviewed: May 29, 2018 Time H&P Reviewed: 17:20 Pre-Operative Diagnosis: acute calculous cholecystitis MICHELL DALAL MD May 29, 2018 17:23
[2018-05-29] MEDS ORDERED: NS IV 1000 ML 1,000 ML ONE (17:38)
[2018-05-29 18:00] VITALS: BP 150/73
[2018-05-29] MEDS ORDERED: ONDANSETRON 4 MG/2 ML (SDV) Z0FRAN IV PRN (18:00)
[2018-05-29] MEDS ORDERED: CATHETER FLUSH 10 ML SYR IV PRN (18:00)
[2018-05-29] MEDS ORDERED: fentaNYL INJECTION 100 MCG/2 ML AMP IVP PRN (18:15)
[2018-05-29] MEDS ORDERED: ZOLPIDEM 5 MG (AMBIEN) TAB PO PRN (18:15)
[2018-05-29] MEDS ORDERED: diphenhydrAMINE 50 MG/ML INJ (BENADRYL) IVP PRN (18:15)
[2018-05-29] MEDS: NS IV 1000 ML 1,000 ML IV SCH (18:16)
--- NOTE | 2018-05-29 18:26 | HISTORY AND PHYSICAL ---
DATE OF SERVICE: 05/29/2018 ATTENDING PRIMARY CARE PHYSICIAN: Dr. Moe. HISTORY OF PRESENT ILLNESS: The patient is a 47-year-old female, who presented to the Emergency Department with pain of the mid upper back associated with two episodes of nausea and vomiting. She states that she has had some issues with lower back pain in the past; however, this pain was different in location as well as subjective type of discomfort. She does not recall any fever or chills at home. An ultrasound was performed, which did show cholelithiasis as well as gallbladder wall thickening consistent with an acute calculous cholecystitis. PAST MEDICAL HISTORY: Chronic low back pain, migraine headaches, menometrorrhagia, chronic urinary tract infections. PAST SURGERIES: Total hysterectomy with bladder suspension, cystoscopy, bilateral tympanostomy, section, left thyroidectomy, tonsillectomy, tubal ligation. ALLERGIES: ERYTHROMYCIN, OPIOID PAIN MEDICATIONS DO CAUSE NAUSEA. MEDICATIONS: 1. Cyclobenzaprine 10 mg q.8 hours p.r.n. 2. Estradiol 1 mg daily. 3. Ketorolac 10 mg q.8 hours p.r.n. 4. Levothyroxine 50 mcg daily. 5. Rizatriptan 10 mg p.r.n. 6. Topiramate 100 mg b.i.d. SOCIAL HISTORY: Negative smoke. Rare alcohol. FAMILY HISTORY: Noncontributory. REVIEW OF SYSTEMS: This is a well-nourished female, currently mildly guarded secondary to the back pain. She is not experiencing any shortness of breath or difficulty in breathing. No chest pain, palpitations, diaphoresis. Two episodes of nausea and vomiting of bilious material. No hematemesis or coffee ground emesis. Has had constipation before in the past, none recently. No red blood per rectum. No dark tarry stools. No fever or chills. No recent inadvertent weight loss. All other review of systems are negative. PHYSICAL EXAMINATION: VITAL SIGNS: Temperature 98.1, blood pressure 145/80, pulse 86, respirations 20, pulse ox 99% on room air. CHEST: Clear. Good breath sounds bilaterally. HEART: Regular. No murmurs. EXTREMITIES: No lower extremity edema. Negative Homans sign. HEENT: No scleral icterus. NECK: No cervical lymphadenopathy. ABDOMEN: Soft, nondistended. There is pain elicited with deep palpation in the right upper abdominal quadrant with positive Arita sign. No peritoneal signs. SKIN: Warm and dry. LABS: WBC 7.6, hemoglobin 12.4, hematocrit 38, platelets 321. BUN 9, creatinine 0.73, total bilirubin 1.5, AST 560, ALT 518, alkaline phosphatase 442. Urinalysis, 1+ leukocyte esterase with a few bacteria. ASSESSMENT AND PLAN: A 47-year-old female with acute calculous cholecystitis. The natural history of gallbladder disease was explained to the patient including risk of gallstone pancreatitis, gangrenous cholecystitis as well as perforation. She is understanding of the risks and benefits of surgery and would like to proceed with a laparoscopic cholecystectomy, which we will schedule. Job ID: [id number] DocumentID: [id number] Dictated Date: 05/29/2018 17:22:30 Offshore Diver Date: 05/29/2018 18:25:32 Dictated By: MICHELL DALAL MD
[2018-05-29] MEDS: CIPROFLOXACIN IV 400MG/200ML 200 ML IV SCH (19:03)
[2018-05-29] MEDS ORDERED: FLU QUADRIvalent (5+ YOA) 2018-2019 (AFLURIA) 0.5 ML IM ONE (19:15)
[2018-05-29] MEDS: metroNIDAZOLE 500MG/100ML IVPB 100 ML IV SCH (19:37)
[2018-05-29 19:45] VITALS: BP 133/67
[2018-05-29] MEDS: KETOROLAC 30 MG/ML VIAL IV PRN (22:55)
[2018-05-30 00:53] VITALS: BP 118/55
[2018-05-30 04:09] VITALS: BP 125/57
[2018-05-30] MEDS: KETOROLAC 30 MG/ML VIAL IV PRN ×3 (04:53→21:02)
[2018-05-30] MEDS: NS IV 1000 ML 1,000 ML IV SCH ×2 (04:53→14:22)
[2018-05-30 06:41] LABS: BASOPHILS % (AUTO) 0 % (0-10); EOSINOPHILS # (AUTO) 0.1 10^3/uL (0.0-0.3); EOSINOPHILS % (AUTO) 2 % (0-10); HEMATOCRIT 34 % (35-52); LYMPHOCYTES # (AUTO) 1.6 X 10^3 (1.0-4.0); LYMPHOCYTES % (AUTO) 28 % (12-44); MEAN CORPUSCULAR HEMOGLOBIN 28 PG (25-34); MEAN CORPUSCULAR HGB CONC 32 G/DL (32-36); MEAN CORPUSCULAR VOLUME 85 FL (80-99); MEAN PLATELET VOLUME 10.4 FL (7.4-10.4); MONOCYTES # (AUTO) 0.6 X 10^3 (0.0-1.0); MONOCYTES % (AUTO) 10 % (0-12); NEUTROPHILS # (AUTO) 3.5 X 10^3 (1.8-7.8); NEUTROPHILS % (AUTO) 60 % (42-75); PLATELET COUNT 272 10^3/uL (130-400); RED BLOOD COUNT 3.99 10^6/uL (4.35-5.85); RED CELL DISTRIBUTION WIDTH 13.5 % (10.0-14.5); WHITE BLOOD COUNT 5.9 10^3/uL (4.3-11.0)
[2018-05-30] MEDS: CIPROFLOXACIN IV 400MG/200ML 200 ML IV SCH ×2 (06:45→18:48)
[2018-05-30 07:29] LABS: ALANINE AMINOTRANSFERASE 413 U/L (0-55); ALBUMIN 3.5 GM/DL (3.2-4.5); ALKALINE PHOSPHATASE 378 U/L (40-136); BILIRUBIN,TOTAL 1.2 MG/DL (0.1-1.0); BUN/CREATININE RATIO 17; CALCIUM 9.4 MG/DL (8.5-10.1); CARBON DIOXIDE 22 MMOL/L (21-32); CHLORIDE 107 MMOL/L (98-107); CREATININE SERUM 0.69 MG/DL (0.60-1.30); GFR ESTIMATED > 60; GLUCOSE 90 MG/DL (70-105); POTASSIUM 2.9 MMOL/L (3.6-5.0); SODIUM 141 MMOL/L (135-145); TOTAL PROTEIN 6.2 GM/DL (6.4-8.2)
[2018-05-30] MEDS ORDERED: POTASSIUM CL 10MEQ/50ML IVPB 100 ML IV ONE (07:43)
[2018-05-30] MEDS: metroNIDAZOLE 500MG/100ML IVPB 100 ML IV SCH ×2 (07:52→21:02)
[2018-05-30 08:00] VITALS: BP 127/59
[2018-05-30 08:13] VITALS: BP 127/59
[2018-05-30] MEDS ORDERED: VITA1TAB17 PO (08:42)
[2018-05-30] MEDS ORDERED: ESTR1TAB24 PO (08:42)
[2018-05-30] MEDS ORDERED: LEVO50TA6 PO (08:42)
[2018-05-30] MEDS: POTASSIUM CL 10MEQ/50ML IVPB 50 ML IV SCH ×2 (09:09→10:41)
[2018-05-30] MEDS ORDERED: KETO10TA PO (09:32)
--- NOTE | 2018-05-30 09:33 | Discharge Inst-Surgical ---
D/C Lap Instructions-MULUGETA New, Converted, or Re-Newed RX: RX on Chart Follow Up Appt in 2 weeks Activity as tolerated No driving for 24 hours No driving while on pain medications Incentive Spirometry use every 2 hours while awake Regular Diet Symptoms to Report: Fever over 101 degree F, Nausea/Vomiting Infection Signs and Symptoms to report: Increased redness, Foul odor of wound, Increased drainage Bathing instructions: May shower Operative Area Clean/Dry; Keep incision clean/dry If any problems/questions: Contact your physician or go to Emergency Room MICHELL DALAL MD May 30, 2018 9:33 am
[2018-05-30 12:00] VITALS: BP 181/80
[2018-05-30] MEDS ORDERED: LACTATED RINGERS 1,000 ML IV PRN (12:09)
[2018-05-30 12:50] LABS: BUN/CREATININE RATIO 14; CALCIUM 9.3 MG/DL (8.5-10.1); CARBON DIOXIDE 20 MMOL/L (21-32); CHLORIDE 109 MMOL/L (98-107); CREATININE SERUM 0.69 MG/DL (0.60-1.30); GFR ESTIMATED > 60; GLUCOSE 86 MG/DL (70-105); POTASSIUM 3.4 MMOL/L (3.6-5.0); SODIUM 141 MMOL/L (135-145)
[2018-05-30] MEDS ORDERED: BUP/EPI 0.5% 1:200,000 (SENSORCAINE) 30 ML VIAL ONE (13:26)
[2018-05-30] MEDS ORDERED: ONDANSETRON 4 MG/2 ML (SDV) Z0FRAN ONE (14:10)
[2018-05-30] MEDS ORDERED: proPOfol 200 MG/20 ML (DIPRIVAN) VIAL IV ONE (14:10)
[2018-05-30] MEDS ORDERED: SEVOFLURANE (ULTANE) 15 ML INHAL SOLN ONE ×4 (14:10→16:27)
[2018-05-30] MEDS ORDERED: ROCURONIUM 10 MG/ML 5 ML SYRINGE IV ONE (14:10)
[2018-05-30] MEDS ORDERED: LIDOCAINE PF 2% 5 ML (XYLOCAINE) VIAL ONE (14:10)
[2018-05-30] MEDS ORDERED: DEXAMETHASONE 10 MG/ML (DECADRON) 1 ML VIAL ONE (14:10)
[2018-05-30] MEDS ORDERED: SCOPOLAMINE 1.5 MG (TRANSDERM-SCOP) PATCH TOP ONE (15:15)
[2018-05-30] MEDS ORDERED: SCOPOLAMINE 1.5 MG (TRANSDERM-SCOP) PATCH ONE (15:15)
[2018-05-30] MEDS ORDERED: FAMOTIDINE 20MG/2ML IV (PEPCID) IV ONE (15:15)
[2018-05-30] MEDS: LACTATED RINGERS 1,000 ML IV PRN ×2 (15:15→17:10)
[2018-05-30] MEDS ORDERED: ONDANSETRON 4 MG/2 ML (SDV) Z0FRAN IV ONE (15:15)
[2018-05-30] MEDS ORDERED: FAMOTIDINE 20MG/2ML IV (PEPCID) ONE (15:15)
[2018-05-30] MEDS ORDERED: fentaNYL INJECTION 100 MCG/2 ML AMP ONE (15:29)
[2018-05-30] MEDS ORDERED: MIDAZOLAM 2 MG/2 ML (VERSED) VIAL ONE (15:29)
[2018-05-30] MEDS ORDERED: ceFAZolin 1,000 MG/10 ML (ANCEF) VIAL ONE (16:21)
[2018-05-30] MEDS ORDERED: fentaNYL INJECTION 100 MCG/2 ML AMP IVP ONE (17:00)
[2018-05-30] MEDS ORDERED: ONDANSETRON 4 MG/2 ML (SDV) Z0FRAN IVP PRN (17:00)
[2018-05-30] MEDS ORDERED: KETOROLAC 30 MG/ML VIAL IVP ONE (17:00)
[2018-05-30] MEDS ORDERED: GLYCOPYRROLATE 0.2 MG/ML (ROBINUL) 2 ML VIAL ONE (17:07)
[2018-05-30] MEDS ORDERED: NEOSTIGMINE 1 MG/ML 5 ML SYRINGE ONE (17:07)
--- NOTE | 2018-05-30 17:14 | Progress Note-Post Operative ---
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
[2018-05-30 20:20] VITALS: BP 129/53
--- NOTE | 2018-05-30 21:45 | OPERATIVE REPORT ---
DATE OF SERVICE: 05/29/2018 ATTENDING PRIMARY CARE PHYSICIAN: Matt Moe MD PREOPERATIVE DIAGNOSIS: Acute calculous cholecystitis. POSTOPERATIVE DIAGNOSIS: Acute calculous cholecystitis. PROCEDURE: Laparoscopic cholecystectomy. SURGEON: Michell Dalal MD ANESTHESIA: General endotracheal. ESTIMATED BLOOD LOSS: Minimal. FINDINGS: Moderate gallbladder wall thickening with a dilated gallbladder as well as multiple gallstones. DISPOSITION: The patient tolerated the procedure well. INDICATIONS: The patient is a 47-year-old female who presented to the Emergency Department with pain in the mid upper back with associated pain in the right upper abdominal quadrant as well as two episodes of nausea and vomiting. She reports that she has had lower back pain for many years; however, this type of pain was in a different location and was different. She did not recall any fever or chills at home. An ultrasound was performed, which did show multiple gallstones as well as gallbladder wall thickening consistent with an acute calculous cholecystitis. DESCRIPTION OF PROCEDURE: The patient was brought to the operating room, laid supine on the table. After adequate IV pain and sedating medications and general endotracheal intubation, the abdomen was prepped and draped in standard surgical fashion. A 0.5% Marcaine with epinephrine was then used to anesthetize the overlying skin in the left upper abdominal quadrant. A small transverse skin incision made using a 15 blade. An 0 silk suture was applied to the medial aspect of the incision for retraction and a Veress needle inserted with a low opening pressure of 0 mmHg and the abdomen was then insufflated to 15 mmHg pressure. The Veress needle removed and a 5 mm Xcel trocar placed followed by a 5 mm 45-degree angle. A 4-quadrant abdominal exploration was then performed. There was a dilated gallbladder with moderate gallbladder wall thickening as well as omental adhesions consistent with acute cholecystitis. What was visualized the liver, omentum, stomach appeared normal. Under direct visualization, we then proceeded to place a supraumbilical 10 mm port after the skin and peritoneal lining were anesthetized using 0.5% Marcaine with epinephrine and a transverse skin incision made using a 15 blade. In a similar manner, a right upper abdominal quadrant 5 mm port was placed. The patient was then placed in reverse Trendelenburg position as well as plane right side up, left side down. The fundus of the gallbladder was then retracted anteriorly and superiorly. The omental adhesions were then taken down bluntly using a grasper. The hepatoduodenal ligament was then opened using electrocautery as well as blunt dissection using the hook instrument. The entire critical view of safety was identified including the triangle of Calot as well as the cystic duct and artery as the only two structures going into the gallbladder as well as the cystic plate behind the proximal gallbladder. A timeout was then taken. The cystic duct and artery were clipped proximally, distally and cut with EndoShears. The gallbladder was then dissected off the liver bed using electrocautery and hook instrument with visualization of good hemostasis as well as no leaking ducts of Luschka. The gallbladder was removed through the 10 mm port site using an EndoCatch bag. The 10 mm port site fascia and peritoneum were then closed under direct visualization using a Cyril-Alonzo device and an 0 Vicryl suture. The abdomen was desufflated. The remaining ports removed. All skin incisions were closed using 4-0 Monocryl running subcuticular sutures. Wounds were then cleaned and covered with Dermabond. The patient tolerated the procedure well. We will start IV and oral pain medication as well as a clear liquid diet. We will also continue with DVT prophylaxis with early ambulation as well as calf SCDs. When she is tolerating liquids, has good pain control with oral pain medications, ambulating well, we will discharge her home. She will be instructed to do no heavy lifting or exertion for the next two weeks. Job ID: [id number] DocumentID: [id number] Dictated Date: 05/30/2018 17:28:49 Background Check Coordinator Date: 05/30/2018 21:44:43 Dictated By: MICHELL DALAL MD
[2018-05-30] MEDS ORDERED: FLU QUADRIvalent (5+ YOA) 2018-2019 (AFLURIA) 0.5 ML IM ONE (23:14)
--- NOTE | 2018-05-31 07:32 | Anesthesia-General Post-Op ---
General Patient Condition Mental Status/LOC: Same as Preop Cardiovascular: Satisfactory Nausea/Vomiting: Absent Respiratory: Satisfactory Pain: Controlled Complications: Absent Post Op Complications Complications None Follow Up Care/Instructions Patient Instructions None needed. Anesthesia/Patient Condition Patient Condition Patient discharged to home. No complications reported per nursing. KAYLYNN GUAJARDO CRNA May 31, 2018 07:32
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
[2018-06-02] MEDS ORDERED: SCOPOLAMINE PATCH REMOVAL TP SCH (15:14)
== END 2018-05-30 23:35 | disposition home or self-care (01) ==
LOC: EDUNIT# 11:05 → ER 11:06 → UNDOADMOB 16:40 → 4TH 16:40 → SDC 16:40 → UNDODISOB 05-30 23:35
PROVIDERS: ATTEND Surgery
DX: K80.00 Calculus of gallbladder with acute cholecystitis without obstruction (principal); E03.9 Hypothyroidism, unspecified; E66.9 Obesity, unspecified; Z68.41 Body mass index [BMI] 40.0-44.9, adult; Z88.5 Allergy status to narcotic agent; Z79.899 Other long term (current) drug therapy
CPT/HCPCS: 36415; 76705; 80048; 80053; 81000; 85025; 87081; 90686; 96374

== ENCOUNTER → 2018-06-04 | Outpatient (CLI) | payer BC ==
[~2018-06-04] MED LIST changes: +LEVO50TA6 PO; +VITA1TAB17 PO
--- NOTE | 2018-06-04 11:19 | Diagnostic Imaging Report ---
EXAMINATION: Thyroid ultrasound INDICATION: Acquired hypothyroidism There are no prior studies available for comparison. The right lobe of thyroid is mildly enlarged. The right lobe measures 5.5 x 2.0 x 2.1 CM (normal gland size 4-5 x 2 x 2 CM or less). The right lobe appears fairly homogeneous. There is no discrete solid or cystic mass within the right lobe. Left lobe is surgically absent. IMPRESSION: 1. The right lobe of thyroid is enlarged but homogeneous. There is no discrete abnormality identified. If further evaluation of the right lobe is desired, then a nuclear medicine thyroid scan would be recommended. 2. The left lobe of the thyroid is surgically absent. Dictated by: Dictated on workstation # [id number]
== END ==
LOC: RAD 08:50
PROVIDERS: ATTEND Family Medicine
DX: E89.0 Postprocedural hypothyroidism (principal)
CPT/HCPCS: 76536

== ENCOUNTER 2018-09-08 08:24 | Emergency (ER) | payer BC ==
[~2018-09-08] VITALS: Ht 172.7 cm; Wt 117.9 kg
[2018-09-08] MEDS ORDERED: ONDANSETRON 4 MG (ZOFRAN) ORAL DISSOLVE TAB SL STA (08:57)
[2018-09-08] MEDS ORDERED: ANTACID SUSP 30 ML UDC (MYLANTA) PO ONE (09:00)
[2018-09-08] MEDS ORDERED: LIDOCAINE 2% VISCOUS 15 ML UDC PO ONE (09:00)
--- NOTE | 2018-09-08 10:57 | ED Abdominal Pain ---
General Chief Complaint: Abdominal/GI Problems Stated Complaint: UPPER ABD PAIN Nursing Triage Note: AMB TO ROOM REPORTS WOKE UP THIS AM HAD ONSET OF EPIGASTRIC PAIN . HAD GALLBLADDER SURG IN MAY. DID NOT TAKE ANY MYLANTA BECAUSE DID NOT HAVE ANY NO VOMITING Sepsis Screen: No Definite Risk Source of Information: Patient Exam Limitations: No Limitations History of Present Illness Date Seen by Provider: Sep 08, 2018 Time Seen by Provider: 10:35 Initial Comments 48-year-old female who presents to the emergency room with complaints of epigastric pain that started this morning when she woke up. She reports that she had a cholecystectomy in May has not had pain like this since. She has not taken any [id number]-[id number] medications for this pain. But she also has nausea along with the pain but denies vomiting. She did have one loose stool this morning but denies watery diarrhea. Timing/Duration: 4-6 Hours Severity/Quality: Cramping Location: Epigastric Radiation: No Radiation Associated Symptoms: No Chest Pain; Nausea/Vomiting; No Shortness of Air Allergies and Home Medications Allergies Coded Allergies: erythromycin base (Unverified Allergy, Mild, ABD PAIN, 07/20/09) Uncoded Allergies: OPIATES (Allergy, Mild, 07/20/09) Home Medications Estradiol 1 Mg Tablet, 1 MG PO DAILY, (Reported) LAST FILLED #30 18 Ketorolac Tromethamine 10 Mg Tablet, 10 MG PO Q4H Prescribed by: MICHELL DALAL on 05/30/18 0932 Levothyroxine Sodium 50 Mcg Tablet, 50 MCG PO DAILY, (Reported) Rizatriptan Benzoate 10 Mg Tablet, 10 MG PO UD PRN for MIGRAINE, (Reported) Topiramate 100 Mg Tablet, 100 MG PO BID, (Reported) LAST FILLED #60 12-20-17 Vitamin B Complex 1 Each Tablet, 1 TAB PO DAILY, (Reported) Patient Home Medication List Home Medication List Reviewed: Yes Review of Systems Review of Systems Constitutional: see HPI Gastrointestinal: See HPI, Abdominal Pain (epigastric pain), Nausea All Other Systems Reviewed Negative Unless Noted: Yes Past Gvqofpj-Xlrwzz-Ckxacm Hx Past Med/Social Hx: Reviewed Nursing Past Med/Soc Hx Patient Social History Alcohol Use: Denies Use Number of Drinks Today: FF Alcohol Beverage of Choice: Vodka Recreational Drug Use: No Smoking Status: Never a Smoker 2nd Hand Smoke Exposure: Yes Recent Foreign Travel: No Contact w/Someone Who Travel: No Recent Infectious Disease Expo: No Recent Hopitalizations: Yes (ER 3 WEEKS AGO - BUG IN EAR) Immunizations Up To Date Tetanus Booster (TDap): Less than 5yrs Date of Influenza Vaccine: Apr 22, 2016 Seasonal Allergies Seasonal Allergies: No Past Medical History Surgeries: Yes (CYSTOSCOPY, LEFT THYROIDECTOMY; BMT'S AGE 8; BLADDER SUSPENSION ; HYST/BSO) Bladder Surgery, Section, Ear Surgery, Gallbladder, Hysterectomy, Oophorectomy, Thyroidectomy, Tonsillectomy, Tubal Ligation Respiratory: No Cardiac: No Neurological: Yes Headaches /Migraines Reproductive Disorders: Yes Female Reproductive Disorders: Menstrual Problems [place] History: Hysterectomy Sexually Transmitted Disease: No Genitourinary: Yes UTI-Chronic Gastrointestinal: No Musculoskeletal: Yes Back Injury, Chronic Back Pain Endocrine: Yes Hypothyroidsim HEENT: Yes (BMT'S AGE 8, RUPTURED EAR DRUM AGE 9) Cancer: No Psychosocial: Yes Sleep Difficulties Integumentary: Yes (CHILDHOOD - GONE ) Eczema Blood Disorders: No Adverse Reaction/Blood Tranf: No Family Medical History Reviewed Nursing Family Hx Arthritis Asthma Cardiovascular disease Cataracts Colon cancer Completed stroke Dementia Glaucoma Hypertension Myocardial infarction Osteoporosis Psychosocial problem Respiratory disorder Visual disorder No Pertinent Family Hx Physical Exam Vital Signs Vital Signs - First Documented Capillary Refill : Less Than 3 Seconds Height/Weight/BMI Height: 5'8.00" Weight: 260lbs. 0.0oz. 117.215157ne; 42.7 BMI Method:Stated General Appearance: WD/WN, no apparent distress Respiratory: chest non-tender, lungs clear, normal breath sounds, no respiratory distress, no accessory muscle use Cardiovascular: normal peripheral pulses, regular rate, rhythm, no edema, no gallop, no JVD, no murmur Gastrointestinal: normal bowel sounds, soft, no organomegaly, no pulsatile mass , tenderness (epigastric tenderness.) Extremities: normal range of motion, normal capillary refill Neurologic/Psychiatric: alert, normal mood/affect, oriented x 3 Skin: normal color, warm/dry Progress/Results/Core Measures Results/Orders Lab Results Laboratory Tests Test 09/08/18 10:46 09/08/18 10:55 Range/Units Urine Color YELLOW Urine Clarity CLEAR Urine pH 8 5-9 Urine Specific [place] 1.010 L 1.016-1.022 Urine Protein NEGATIVE NEGATIVE Urine Glucose (UA) NEGATIVE NEGATIVE Urine Ketones NEGATIVE NEGATIVE Urine Nitrite NEGATIVE NEGATIVE Urine Bilirubin NEGATIVE NEGATIVE Urine Urobilinogen NORMAL NORMAL MG/DL Urine Leukocyte Esterase NEGATIVE NEGATIVE Urine RBC (Auto) NEGATIVE NEGATIVE Urine RBC NONE /HPF Urine WBC NONE /HPF Urine Squamous Epithelial Cells 5-10 /HPF Urine Crystals NONE /LPF Urine Bacteria TRACE /HPF Urine Casts NONE /LPF Urine Mucus NEGATIVE /LPF Urine Culture Indicated NO White Blood Count 6.0 4.3-11.0 10^3/uL Red Blood Count 4.63 4.35-5.85 10^6/uL Hemoglobin 13.1 11.5-16.0 G/DL Hematocrit 40 35-52 % Mean Corpuscular Volume 86 80-99 FL Mean Corpuscular Hemoglobin 28 25-34 PG Mean Corpuscular Hemoglobin Concent 33 32-36 G/DL Red Cell Distribution Width 14.0 10.0-14.5 % Platelet Count 292 130-400 10^3/uL Mean Platelet Volume 9.9 7.4-10.4 FL Neutrophils (%) (Auto) 63 42-75 % Lymphocytes (%) (Auto) 24 12-44 % Monocytes (%) (Auto) 11 0-12 % Eosinophils (%) (Auto) 2 0-10 % Basophils (%) (Auto) 1 0-10 % Neutrophils # (Auto) 3.7 1.8-7.8 X 10^3 Lymphocytes # (Auto) 1.4 1.0-4.0 X 10^3 Monocytes # (Auto) 0.6 0.0-1.0 X 10^3 Eosinophils # (Auto) 0.1 0.0-0.3 10^3/uL Basophils # (Auto) 0.0 0.0-0.1 10^3/uL Sodium Level 142 135-145 MMOL/L Potassium Level 3.6 3.6-5.0 MMOL/L Chloride Level 108 H 98-107 MMOL/L Carbon Dioxide Level 28 21-32 MMOL/L Anion Gap 6 5-14 MMOL/L Blood Urea Nitrogen 10 7-18 MG/DL Creatinine 0.77 0.60-1.30 MG/DL Estimat Glomerular Filtration Rate > 60 BUN/Creatinine Ratio 13 Glucose Level 105 70-105 MG/DL Calcium Level 9.7 8.5-10.1 MG/DL Corrected Calcium 9.7 8.5-10.1 MG/DL Total Bilirubin 0.9 0.1-1.0 MG/DL Aspartate Amino Transf (AST/SGOT) 775 H 5-34 U/L Alanine Aminotransferase (ALT/SGPT) 607 H 0-55 U/L Alkaline Phosphatase 370 H 40-136 U/L Total Protein 7.2 6.4-8.2 GM/DL Albumin 4.0 3.2-4.5 GM/DL Amylase Level 69 25-125 U/L Lipase 36 8-78 U/L My Orders Orders - EVELINA ABURTO Comprehensive Metabolic Panel (09/08/18 10:43) Lipase (09/08/18 10:43) Amylase (09/08/18 10:43) Saline Lock/Iv-Start (09/08/18 10:43) Cbc With Automated Diff (09/08/18 10:43) Fentanyl Injection (Sublimaze Injection (09/08/18 11:00) Ondansetron Injection (Zofran Injectio (09/08/18 11:15) Ketorolac Injection (Toradol Injection) (09/08/18 11:15) Ondansetron Injection (Zofran Injectio (09/08/18 10:58) Ct Abdomen/Pelvis W (09/08/18 12:19) Hepatitis Panel Acute (09/08/18 12:19) Iohexol Injection (Omnipaque 350 Mg/Ml 1 (09/08/18 12:45) Contrast Received (Contrast Received) (09/08/18 12:45) Sodium Chloride Flush (Catheter Flush Sy (09/08/18 12:45) Ns (Ivpb) (Sodium Chloride 0.9% Ivpb Bag (09/08/18 12:45) Medications Given in ED Current Medications Medications Dose Ordered Sig/Garrett Route Start Time Stop Time Status Last Admin Dose Admin Al Hydrox/Mg Hydrox/Simethicone 30 ml ONCE ONCE PO 09/08/18 09:00 09/08/18 09:01 DC 09/08/18 09:03 30 ML Iohexol 100 ml ONCE ONCE IV 09/08/18 12:45 09/08/18 12:46 DC 09/08/18 13:05 100 ML Ketorolac Tromethamine 30 mg Q6H PRN IVP 09/08/18 11:15 09/13/18 11:14 09/08/18 11:11 30 MG Lidocaine HCl 15 ml ONCE ONCE PO 09/08/18 09:00 09/08/18 09:01 DC 09/08/18 09:03 15 ML Sodium Chloride 10 ml NEEDED PRN IV 09/08/18 12:45 09/08/18 13:05 10 ML Sodium Chloride 100 ml ONCE ONCE IV 09/08/18 12:45 09/08/18 12:46 DC 09/08/18 13:05 80 ML Vital Signs/I&O 09/08/18 08:44 B/P (MAP) Progress Progress Note : Time: 10:43 Progress Note I have seen and evaluated the patient. Dr. Arrieta had previously ordered Zofran ODT and a GI cocktail and the patient did have about 50% improvement of her epigastric pain. I informed the patient of plans for laboratory evaluation and that we will give her a dose of IV pain medication to see if this improves her pain completely. She agrees with plan of care at this time. 1345: I have seen and evaluated the patient. I've informed her of her imaging studies. And her elevated liver enzymes. Her pain is gone at this time. She agrees with plan of care, plans for discharge, plans for close follow-up with Dr. Moe for further evaluation of her liver enzyme elevation. Return precautions were given. Departure Impression Primary Impression: Epigastric abdominal pain Additional Impression: Elevated liver enzymes Disposition: HOME, SELF-CARE Condition: Stable/Unchanged Departure-Patient Inst. Decision time for Depature: 13:47 Referrals: SUREKHA MOE MD (PCP/Family) Primary Care Physician Patient Instructions: Acute Abdomen (Belly Pain) Add. Discharge Instructions: Call first thing tomorrow morning for an appointment time with Dr. Moe for further evaluation of your elevated liver enzymes. Return back to the emergency room for worsening symptoms or concerns as needed. All discharge instructions reviewed with patient and/or family. Voiced understanding. EVELINA ABURTO Sep 08, 2018 10:57
[2018-09-08] MEDS ORDERED: ONDANSETRON 4 MG/2 ML (SDV) Z0FRAN ONE (10:58)
[2018-09-08] MEDS ORDERED: fentaNYL INJECTION 100 MCG/2 ML AMP IVP ONE (11:00)
[2018-09-08 11:12] LABS: BILIRUBIN,URINE NEGATIVE (NEGATIVE); CLARITY,URINE CLEAR; COLOR,URINE YELLOW; GLUCOSE, URINE (UA) NEGATIVE (NEGATIVE); KETONES,URINE NEGATIVE (NEGATIVE); LEUKOCYTE ESTERASE ,URINE NEGATIVE (NEGATIVE); NITRITE,URINE NEGATIVE (NEGATIVE); PH,URINE 8 (5-9); PROTEIN,URINE NEGATIVE (NEGATIVE); UROBILINOGEN,URINE NORMAL (NORMAL)
[2018-09-08] MEDS ORDERED: ONDANSETRON 4 MG/2 ML (SDV) Z0FRAN IVP ONE (11:15)
[2018-09-08] MEDS ORDERED: KETOROLAC 30 MG/ML VIAL IVP PRN (11:15)
[2018-09-08 11:16] LABS: BASOPHILS % (AUTO) 1 % (0-10); EOSINOPHILS # (AUTO) 0.1 10^3/uL (0.0-0.3); EOSINOPHILS % (AUTO) 2 % (0-10); HEMATOCRIT 40 % (35-52); HEMOGLOBIN 13.1 G/DL (11.5-16.0); LYMPHOCYTES # (AUTO) 1.4 X 10^3 (1.0-4.0); LYMPHOCYTES % (AUTO) 24 % (12-44); MEAN CORPUSCULAR HEMOGLOBIN 28 PG (25-34); MEAN CORPUSCULAR HGB CONC 33 G/DL (32-36); MEAN CORPUSCULAR VOLUME 86 FL (80-99); MEAN PLATELET VOLUME 9.9 FL (7.4-10.4); MONOCYTES # (AUTO) 0.6 X 10^3 (0.0-1.0); MONOCYTES % (AUTO) 11 % (0-12); NEUTROPHILS # (AUTO) 3.7 X 10^3 (1.8-7.8); NEUTROPHILS % (AUTO) 63 % (42-75); PLATELET COUNT 292 10^3/uL (130-400)
[2018-09-08 11:21] LABS: BACTERIA,URINE TRACE /HPF
[2018-09-08 11:39] LABS: ALANINE AMINOTRANSFERASE 607 U/L (0-55); ALKALINE PHOSPHATASE 370 U/L (40-136); AMYLASE 69 U/L (25-125); BILIRUBIN,TOTAL 0.9 MG/DL (0.1-1.0); BUN/CREATININE RATIO 13; CALCIUM 9.7 MG/DL (8.5-10.1); CARBON DIOXIDE 28 MMOL/L (21-32); CHLORIDE 108 MMOL/L (98-107); CREATININE SERUM 0.77 MG/DL (0.60-1.30); GFR ESTIMATED > 60; GLUCOSE 105 MG/DL (70-105); LIPASE 36 U/L (8-78); POTASSIUM 3.6 MMOL/L (3.6-5.0); SODIUM 142 MMOL/L (135-145); TOTAL PROTEIN 7.2 GM/DL (6.4-8.2)
[2018-09-08] MEDS ORDERED: NS 100 ML (IVPB) BAG IV ONE (12:45)
[2018-09-08] MEDS ORDERED: RECEIVED CONTRAST (Hold Metformin) IV SCH (12:45)
[2018-09-08] MEDS ORDERED: IOHEXOL 350 MG/ML 100 ML (OMNIPAQUE 350) VIAL IV ONE (12:45)
[2018-09-08] MEDS ORDERED: CATHETER FLUSH 10 ML SYR IV PRN (12:45)
--- NOTE | 2018-09-08 13:31 | Diagnostic Imaging Report ---
PROCEDURE: CT abdomen and pelvis with contrast. TECHNIQUE: Multiple contiguous axial images were obtained through the abdomen and pelvis after administration of intravenous contrast. INDICATION: Epigastric pain. Elevated liver enzymes. FINDINGS: There are fatty infiltrates in the liver with no suspicious liver lesions seen. The gallbladder is absent. The bile ducts are not dilated. The spleen, pancreas and adrenals are normal. There is 1 cm cyst on the right kidney. No calculus or hydronephrosis is seen on either side. The ureters and bladder are normal. The appendix is normal. No acute bowel abnormality is seen. There is no adenopathy. There is no ascites. There is no acute bony abnormality. IMPRESSION: No acute abnormality is seen. Dictated by: Dictated on workstation # [id number]
[2018-09-08 13:58] VITALS: BP 135/74
[2018-09-09 16:15] LABS: HEPATITIS C ANTIBODY C Non-Reactive (Non-Reactive)
== END 2018-09-08 14:10 | disposition home or self-care (01) ==
LOC: EDUNIT# 08:24 → ER 08:25
DX: R10.13 Epigastric pain (principal); R94.5 Abnormal results of liver function studies; G43.909 Migraine, unspecified, not intractable, without status migrainosus; E03.9 Hypothyroidism, unspecified; Z87.440 Personal history of urinary (tract) infections; Z77.22 Contact with and (suspected) exposure to environmental tobacco smoke (acute) (chronic); Z90.49 Acquired absence of other specified parts of digestive tract; Z88.1 Allergy status to other antibiotic agents; Z88.5 Allergy status to narcotic agent; Z90.710 Acquired absence of both cervix and uterus; Z90.89 Acquired absence of other organs; Z98.51 Tubal ligation status
CPT/HCPCS: 36415; 74177; 80053; 80074; 81000; 82150; 83690; 85025

== ENCOUNTER 2018-10-14 16:56 | Emergency (ER) | payer BC ==
[~2018-10-14] VITALS: Ht 172.7 cm; Wt 127.0 kg
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
[2018-10-14] MEDS ORDERED: ASPIRIN 81 MG CHEW (CHILDREN'S ASA) ONE (17:05)
[2018-10-14] MEDS ORDERED: NITROGLYCERIN 0.4 MG SL TABS BTL 25'S SL ONE (17:05)
[2018-10-14] MEDS ORDERED: ASPIRIN 81 MG CHEW (CHILDREN'S ASA) PO ONE (17:15)
[2018-10-14] MEDS: NITROGLYCERIN 0.4 MG SL TABS BTL 25'S SL PRN ×2 (17:15→17:30)
--- NOTE | 2018-10-14 17:17 | ED Chest Pain ---
General Stated Complaint: PAIN IN CHEST/UPPER ABD Source: patient Exam Limitations: no limitations (WAYNE COURTNEY) History of Present Illness Date Seen by Provider: Oct 14, 2018 Time Seen by Provider: 16:58 Initial Comments Patient presents to ER by private conveyance with chief complaint proximally 3 hours of constant chest pain in the middle of her chest radiating down along the edges of both costal margins towards her back. Pain is not made worse by movement, exertion. Stretching out does not help but rolling up into a ball makes it worse. She has no nausea but she had some sweats initially and rated the pain as an 8 out of 10. It is progressively gotten better over time. She took the Toradol that was left over from a previous encounter right around 3:30 and she says is brought the pain down to a 4 out of 10. Pain does not radiate to either shoulder or jaw. She does not have a known history of coronary disease but her father had his heart attack at age 35 and is had dysrhythmias and heart problems since then. She had this pain a few months ago and ended up having a gallbladder surgery so he thought that was the cause but it came back since then. She does not have known high blood pressure, cholesterolemia. She does not smoke or have diabetes. She does take Synthroid for hypothyroidism. She has not had a stress test or catheterization of her heart. She does not have a history of anxiety or GERD. She does not take any antacids or acid reducers. While she does not smoke or does smoke in the house. She has been working to lose weight outpatient and used to weigh 290 pounds. Last time she was here she was being worked up outpatient for her mildly elevated transaminases and had a negative hepatitis blood test. (WAYNE COURTNEY) Allergies and Home Medications Allergies Coded Allergies: erythromycin base (Unverified Allergy, Mild, ABD PAIN, 07/20/09) Uncoded Allergies: OPIATES (Allergy, Mild, 07/20/09) Home Medications Estradiol 1 Mg Tablet, 1 MG PO DAILY, (Reported) LAST FILLED #30 04-16-18 Ketorolac Tromethamine 10 Mg Tablet, 10 MG PO Q4H Prescribed by: MICHELL BOSE on 05/30/18 0932 Levothyroxine Sodium 50 Mcg Tablet, 50 MCG PO DAILY, (Reported) Rizatriptan Benzoate 10 Mg Tablet, 10 MG PO UD PRN for MIGRAINE, (Reported) Topiramate 100 Mg Tablet, 100 MG PO BID, (Reported) LAST FILLED #60 5-31-18 Vitamin B Complex 1 Each Tablet, 1 TAB PO DAILY, (Reported) Patient Home Medication List Home Medication List Reviewed: Yes (WAYNE COURTNEY) Review of Systems Review of Systems Constitutional: No chills, No fever, No malaise EENTM: No Eye Pain, No Eye Tearing Respiratory: Denies Cough, Denies Shortness of Air, Denies Wheezing Cardiovascular: See HPI, Chest Pain; Denies Edema, Denies Irregular Heart Rate , Denies Lightheadedness, Denies Palpitations, Denies Syncope Gastrointestinal: See HPI; Denies Abdomen Distended; Abdominal Pain; Denies Constipated, Denies Diarrhea, Denies Nausea Genitourinary: Denies Burning, Denies Discharge Musculoskeletal: No back pain, No joint pain Skin: No pruritus, No rash Psychiatric/Neurological: Denies Headache, Denies Numbness, Denies Paresthesia (WAYNE COURTNEY) Past Qdwcpie-Eudoow-Xwhoxa Hx Patient Social History Alcohol Use: Occasionally Uses Alcohol Beverage of Choice: Vodka Recreational Drug Use: No Smoking Status: Never a Smoker 2nd Hand Smoke Exposure: Yes Recent Foreign Travel: No Contact w/Someone Who Travel: No Recent Hopitalizations: Yes (ER 3 WEEKS AGO - BUG IN EAR) (WAYNE COURTNEY) Immunizations Up To Date Tetanus Booster (TDap): Less than 5yrs Date of Influenza Vaccine: Apr 22, 2016 (WAYNE COURTNEY) Seasonal Allergies Seasonal Allergies: No (WAYNE COURTNEY) Past Medical History Surgeries: Yes (CYSTOSCOPY, LEFT THYROIDECTOMY; BMT'S AGE 8; BLADDER SUSPENSION ; HYST/BSO) Bladder Surgery, Section, Ear Surgery, Gallbladder, Hysterectomy, Oophorectomy, Thyroidectomy, Tonsillectomy, Tubal Ligation Respiratory: No Cardiac: No Neurological: Yes Headaches /Migraines Reproductive Disorders: Yes Female Reproductive Disorders: Menstrual Problems [employer] History: Hysterectomy Sexually Transmitted Disease: No Genitourinary: Yes UTI-Chronic Gastrointestinal: No Musculoskeletal: Yes Back Injury, Chronic Back Pain Endocrine: Yes Hypothyroidsim HEENT: Yes (BMT'S AGE 8, RUPTURED EAR DRUM AGE 9) Cancer: No Psychosocial: Yes Sleep Difficulties Integumentary: Yes (CHILDHOOD - GONE ) Eczema Blood Disorders: No Adverse Reaction/Blood Tranf: No (WAYNE COURTNEY) Family Medical History Arthritis Asthma Cardiovascular disease Cataracts Colon cancer Completed stroke Dementia Glaucoma Hypertension Myocardial infarction Osteoporosis Psychosocial problem Respiratory disorder Visual disorder No Pertinent Family Hx (WAYNE COURTNEY) Physical Exam Vital Signs Vital Signs - First Documented (KERRI FRAGA MD) Vital Signs Capillary Refill : (WAYNE COURTNEY) Height, Weight, BMI Height: 5'8.00" Weight: 260lbs. 0.0oz. 117.400695ve; 42.7 BMI Method:Stated General Appearance: No Apparent Distress, WD/WN HEENT: PERRL/EOMI, Moist Mucous Membranes Neck: Normal Inspection, Non Tender Respiratory: Chest Non Tender, Lungs Clear, Normal Breath Sounds, No Accessory Muscle Use, No Respiratory Distress Cardiovascular: Regular Rate, Rhythm, No Edema, No Gallop, No Murmur, Normal Peripheral Pulses Gastrointestinal: Normal Bowel Sounds, No Organomegaly, Soft, Tenderness (mild right upper quadrant tenderness) Extremity: Normal Capillary Refill, Normal Inspection, Normal Range of Motion, Non Tender, No Calf Tenderness, No Pedal Edema Neurologic/Psychiatric: Alert, Oriented x3, No Motor/Sensory Deficits, Normal Mood/Affect Skin: Normal Color, Warm/Dry (WAYNE COURTNEY) Progress/Results/Core Measures Results/Orders Lab Results Laboratory Tests Test 10/14/18 17:10 10/14/18 19:25 Range/Units White Blood Count 10.4 4.3-11.0 10^3/uL Red Blood Count 4.48 4.35-5.85 10^6/uL Hemoglobin 12.8 11.5-16.0 G/DL Hematocrit 39 35-52 % Mean Corpuscular Volume 87 80-99 FL Mean Corpuscular Hemoglobin 29 25-34 PG Mean Corpuscular Hemoglobin Concent 33 32-36 G/DL Red Cell Distribution Width 13.1 10.0-14.5 % Platelet Count 290 130-400 10^3/uL Mean Platelet Volume 10.1 7.4-10.4 FL Neutrophils (%) (Auto) 76 H 42-75 % Lymphocytes (%) (Auto) 15 12-44 % Monocytes (%) (Auto) 8 0-12 % Eosinophils (%) (Auto) 2 0-10 % Basophils (%) (Auto) 0 0-10 % Neutrophils # (Auto) 7.9 H 1.8-7.8 X 10^3 Lymphocytes # (Auto) 1.6 1.0-4.0 X 10^3 Monocytes # (Auto) 0.8 0.0-1.0 X 10^3 Eosinophils # (Auto) 0.2 0.0-0.3 10^3/uL Basophils # (Auto) 0.0 0.0-0.1 10^3/uL Prothrombin Time 12.9 12.2-14.7 SEC INR Comment 0.9 0.8-1.4 Activated Partial Thromboplast Time 34 24-35 SEC Sodium Level 141 135-145 MMOL/L Potassium Level 3.8 3.6-5.0 MMOL/L Chloride Level 106 98-107 MMOL/L Carbon Dioxide Level 25 21-32 MMOL/L Anion Gap 10 5-14 MMOL/L Blood Urea Nitrogen 12 7-18 MG/DL Creatinine 0.80 0.60-1.30 MG/DL Estimat Glomerular Filtration Rate > 60 BUN/Creatinine Ratio 15 Glucose Level 118 H 70-105 MG/DL Calcium Level 10.0 8.5-10.1 MG/DL Corrected Calcium 10.0 8.5-10.1 MG/DL Magnesium Level 2.0 1.8-2.4 MG/DL Total Bilirubin 0.7 0.1-1.0 MG/DL Aspartate Amino Transf (AST/SGOT) 171 H 5-34 U/L Alanine Aminotransferase (ALT/SGPT) 77 H 0-55 U/L Alkaline Phosphatase 221 H 40-136 U/L Myoglobin 68.4 10.0-92.0 NG/ML Troponin I < 0.028 < 0.028 <0.028 NG/ML B-Type Natriuretic Peptide < 10.0 <100.0 PG/ML Total Protein 7.2 6.4-8.2 GM/DL Albumin 4.0 3.2-4.5 GM/DL Lipase 27 8-78 U/L (KERRI FRAGA MD) My Orders Orders - KERRI FRAGA MD Lidocaine 2% Viscous 15 Ml (Xylocaine Vi (10/14/18 18:30) Antacid Suspension (Mylanta Suspension (10/14/18 18:30) Troponin I (10/14/18 19:10) (KERRI FRAGA MD) Medications Given in ED Current Medications Medications Dose Ordered Sig/Garrett Route Start Time Stop Time Status Last Admin Dose Admin Al Hydrox/Mg Hydrox/Simethicone 30 ml ONCE ONCE PO 10/14/18 18:30 10/14/18 18:31 DC 10/14/18 18:42 30 ML Aspirin 325 mg ONCE ONCE PO 10/14/18 17:15 10/14/18 17:16 DC 10/14/18 17:15 325 MG Lidocaine HCl 15 ml ONCE ONCE PO 10/14/18 18:30 10/14/18 18:31 DC 10/14/18 18:42 15 ML Nitroglycerin 0.4 mg UD PRN SL 10/14/18 17:15 10/14/18 20:43 DC 10/14/18 17:30 0.4 MG (KERRI FRAGA MD) Vital Signs/I&O 10/14/18 10/14/18 10/14/18 16:56 16:56 20:40 Temp 98.0 98.0 Pulse 85 64 Resp 13 16 B/P (MAP) 154/101 (118) 134/73 (93) Pulse Ox 96 98 O2 Delivery Room Air Room Air Room Air (KERRI FRAGA MD) Progress Progress Note #1: Time: 17:20 Progress Note We'll give her nitroglycerin since her pain is still 4 out of 10 and see what it does. If it doesn't help try GI cocktail. The Toradol seemed to improve improve her pain but her chest wall itself was not tender to palpation. We'll give her aspirin. We'll obtain labs, EKG and chest x-ray. Wells criteria for pulmonary embolism 0 points. Low risk group: 1.3% chance of PE in an ED population. ED ACS for points. Low risk by the EDACS Score. If the patient also has: (1) EKG without new ischemic changes and (2) negative initial and 2-hour troponins, then this patient is safe for discharge to early outpatient follow-up investigation (or proceed to earlier inpatient testing). If EKG with ischemic changes or positive troponin, they are not low risk and require normal risk stratification. Progress Note #2: Time: 17:31 Progress Note Initial nitroglycerin brought the patient's pain down to a 2 from before. A second dose was given. Her blood pressure has improved significantly down to 119 /74. (WAYNE COURTNEY) Progress Note : Time: 19:07 Progress Note Report was received from Dr. Courtney. I assumed care of this patient at shift change. She was seen and examined. Lungs were clear to auscultation. Chest and abdomen were nontender. Initial labs were reviewed and were unremarkable. Patient had no chest pain during my initial assessment. She did state that sitting up to take her chest x-ray caused a return of pain. Patient received a GI cocktail and was just reexamined. She has no tenderness. She did have some rebound of pain rated as one or 2 out of 10 when she got up to walk after the GI cocktail. Repeat troponin is pending. (KERRI FRAGA MD) Initial ECG Impression Date: Oct 14, 2018 Initial ECG Impression Time: 17:03 Initial ECG Rate: 72 Initial ECG Rhythm: Normal Sinus Initial ECG Intervals: Normal Initial ECG Impression: Normal Initial ECG Comparisson: Unchanged Comment No ST elevation or depression. (WAYNE COURTNEY) Diagnostic Imaging Diagonstic Imaging: Xray Plain Films/CT/US/NM/MRI: chest (1v) Reviewed: Reviewed by Me (WAYNE COURTNEY) Comments NAME: [facility] REC#: [id number] PT STATUS: REG ER : 1970 PHYSICIAN: WAYNE COURTNEY MD ADMIT DATE: 10/14/18/ER Draft Date of Exam:10/14/18 CHEST 1 VIEW, AP/PA ONLY INDICATION: Chest pain. COMPARISON: 09/16/2010. FINDINGS: Portable chest. The lungs are well aerated. There are no infiltrates. Heart is not enlarged. There is no pulmonary edema. No hilar adenopathy. No pneumothorax or pleural effusion. No bony abnormalities. IMPRESSION: Normal portable chest. Dictated on workstation # [id number] Dict: 10/14/181741 Trans: 10/14/181742 [id number] Interpreted by: ARIANNE FAULKNER MD (KERRI FRAGA MD) Transfer of Care Time: 18:00 Care transferred to: Dr. Arrieta (WAYNE COURTNEY) Departure Impression Primary Impression: Chest pain Qualified Codes: R07.9 - Chest pain, unspecified Disposition: HOME, SELF-CARE Condition: Improved Departure-Patient Inst. Decision time for Depature: 20:16 (KERRI FRAGA MD) Referrals: ULICES BORJA MD, FLOYD R MD (PCP/Family) Primary Care Physician Patient Instructions: Chest Pain (DC) Add. Discharge Instructions: Take an [id number] antacid medication such as Pepcid (famotidine) or omeprazole until otherwise instructed. Follow-up with Dr. Borja at his office tomorrow morning at 9:00. See his contact information below. Return to care if you have recurrent episodes of chest pain that do not resolve with rest. Follow-up with your primary care provider and Dr. Bose as soon as possible as well. Discussed options for further workup which might include endoscopy. Return to care if you have any other problems or concerns that need immediate attention. Work/School Note: Work Release Form Date Seen in the Emergency Department: Oct 14, 2018 Return to Work: Oct 16, 2018 WAYNE COURTNEY Oct 14, 2018 17:17 KERRI FRAGA MD Oct 14, 2018 19:09
[2018-10-14 17:21] LABS: BASOPHILS % (AUTO) 0 % (0-10); EOSINOPHILS # (AUTO) 0.2 10^3/uL (0.0-0.3); EOSINOPHILS % (AUTO) 2 % (0-10); HEMATOCRIT 39 % (35-52); HEMOGLOBIN 12.8 G/DL (11.5-16.0); LYMPHOCYTES # (AUTO) 1.6 X 10^3 (1.0-4.0); LYMPHOCYTES % (AUTO) 15 % (12-44); MEAN CORPUSCULAR HEMOGLOBIN 29 PG (25-34); MEAN CORPUSCULAR HGB CONC 33 G/DL (32-36); MEAN CORPUSCULAR VOLUME 87 FL (80-99); MEAN PLATELET VOLUME 10.1 FL (7.4-10.4); MONOCYTES # (AUTO) 0.8 X 10^3 (0.0-1.0); MONOCYTES % (AUTO) 8 % (0-12); NEUTROPHILS # (AUTO) 7.9 X 10^3 (1.8-7.8); NEUTROPHILS % (AUTO) 76 % (42-75); PLATELET COUNT 290 10^3/uL (130-400); RED CELL DISTRIBUTION WIDTH 13.1 % (10.0-14.5); WHITE BLOOD COUNT 10.4 10^3/uL (4.3-11.0)
[2018-10-14 17:40] LABS: INR 0.9 (0.8-1.4); PROTHROMBIN TIME PATIENT 12.9 SEC (12.2-14.7)
[2018-10-14 17:42] LABS: ALANINE AMINOTRANSFERASE 77 U/L (0-55); ALKALINE PHOSPHATASE 221 U/L (40-136); BILIRUBIN,TOTAL 0.7 MG/DL (0.1-1.0); BUN/CREATININE RATIO 15; CARBON DIOXIDE 25 MMOL/L (21-32); CHLORIDE 106 MMOL/L (98-107); GFR ESTIMATED > 60; GLUCOSE 118 MG/DL (70-105); LIPASE 27 U/L (8-78); POTASSIUM 3.8 MMOL/L (3.6-5.0); SODIUM 141 MMOL/L (135-145); TOTAL PROTEIN 7.2 GM/DL (6.4-8.2)
--- NOTE | 2018-10-14 17:44 | Diagnostic Imaging Report ---
INDICATION: Chest pain. COMPARISON: 09/16/2010. FINDINGS: Portable chest. The lungs are well aerated. There are no infiltrates. Heart is not enlarged. There is no pulmonary edema. No hilar adenopathy. No pneumothorax or pleural effusion. No bony abnormalities. IMPRESSION: Normal portable chest. Dictated by: Dictated on workstation # [id number]
[2018-10-14 17:48] LABS: MYOGLOBIN SERUM 68.4 NG/ML (10.0-92.0)
[2018-10-14] MEDS ORDERED: ANTACID SUSP 30 ML UDC (MYLANTA) PO ONE (18:30)
[2018-10-14] MEDS ORDERED: LIDOCAINE 2% VISCOUS 15 ML UDC PO ONE (18:30)
[2018-10-14 20:40] VITALS: BP 134/73
== END 2018-10-14 20:40 | disposition home or self-care (01) ==
LOC: EDUNIT# 16:56 → ER 16:57
DX: R07.89 Other chest pain (principal); G43.909 Migraine, unspecified, not intractable, without status migrainosus; E03.9 Hypothyroidism, unspecified; Z87.440 Personal history of urinary (tract) infections; Z91.041 Radiographic dye allergy status; Z88.8 Allergy status to other drugs, medicaments and biological substances; Z82.49 Family history of ischemic heart disease and other diseases of the circulatory system; Z77.22 Contact with and (suspected) exposure to environmental tobacco smoke (acute) (chronic); Z98.890 Other specified postprocedural states; Z90.710 Acquired absence of both cervix and uterus; Z90.89 Acquired absence of other organs; Z98.51 Tubal ligation status
CPT/HCPCS: 36415; 71045; 80053; 83690; 83735; 83874; 83880; 84484; 85025; 85610; 85730; 93005; 93041

== ENCOUNTER 2018-10-24 05:53 | Outpatient (CLI) | payer BC ==
[~2018-10-24] VITALS: Ht 172.7 cm; Wt 127.0 kg
[2018-10-24] MEDS ORDERED: PANT40TA3 PO (15:11)
[2018-10-24] MEDS ORDERED: CHOL500050 PO (15:11)
== END 2018-10-24 15:15 | disposition home or self-care (01) ==
LOC: PREOP 05:53
PROVIDERS: ATTEND Surgery
DX: Z01.818 Encounter for other preprocedural examination (principal)

== ENCOUNTER 2018-11-01 11:15 | Day surgery (SDC) | payer BC ==
[~2018-11-01] VITALS: Ht 172.7 cm; Wt 127.0 kg
[~2018-11-01 11:15] MED LIST changes: -SUCR1TAB36 PO
[2018-11-01] MEDS ORDERED: NS IV 500 ML 500 ML IV PRN (11:26)
[2018-11-01 11:30] VITALS: BP 124/77
[2018-11-01] MEDS ORDERED: MIDAZOLAM 2 MG/2 ML (VERSED) VIAL IVP ONE (11:30)
[2018-11-01] MEDS ORDERED: HURRICAINE EXT TUBE (BENZOCAINE) XX PRN (11:30)
[2018-11-01] MEDS ORDERED: LIDOCAINE JELLY 2% 6 ML SYRINGE MM PRN (11:30)
[2018-11-01] MEDS ORDERED: fentaNYL INJECTION 100 MCG/2 ML AMP IVP ONE (11:30)
[2018-11-01] MEDS ORDERED: NS IV 500 ML 500 ML ONE (11:35)
[2018-11-01] MEDS ORDERED: MIDAZOLAM 2 MG/2 ML (VERSED) VIAL ONE ×4 (12:58)
[2018-11-01] MEDS ORDERED: fentaNYL INJECTION 100 MCG/2 ML AMP ONE (12:58)
[2018-11-01] MEDS ORDERED: LIDOCAINE JELLY 2% 6 ML SYRINGE ONE ×2 (12:58→14:34)
[2018-11-01] MEDS ORDERED: HURRICAINE EXT TUBE (BENZOCAINE) ONE ×2 (12:58→14:34)
--- NOTE | 2018-11-01 13:35 | Progress Note-Pre Operative ---
Pre-Operative Progress Note H&P Reviewed The H&P was reviewed, patient examined and no changes noted. Date Seen by Provider: Nov 01, 2018 Time Seen by Provider: 13:00 Date H&P Reviewed: Nov 01, 2018 Time H&P Reviewed: 13:00 Pre-Operative Diagnosis: GERD MICHELL DALAL MD Nov 01, 2018 13:35
[2018-11-01] MEDS ORDERED: SUCR1TAB36 PO (13:36)
--- NOTE | 2018-11-01 13:37 | Discharge Inst-Surgical ---
D/C Lap Instructions-KIDO New, Converted, or Re-Newed RX: RX on Chart Follow Up PRN Activity as tolerated High Fiber Diet 25g or more per day Avoid Alcohol, Caffeine, Spicy [place] and Acid foods. Drink 64 fluid oz or more of fluids per day. Symptoms to Report: Fever over 101 degree F, Nausea/Vomiting If any problems/questions: Contact your physician or go to Emergency Room MICHELL DALAL MD Nov 01, 2018 13:37
[2018-11-01] MEDS ORDERED: HYDROcodone/APAP 5 MG/325 MG (LORTAB) TAB PO PRN (13:45)
[2018-11-01] MEDS ORDERED: ACETAMINOPHEN 325 MG TABLET PO PRN (13:45)
[2018-11-01] MEDS ORDERED: morphine INJ 10 MG/ML 1ML (SYR OR VIAL) IV PRN (13:45)
[2018-11-01] MEDS ORDERED: ONDANSETRON 4 MG/2 ML (SDV) Z0FRAN IV PRN (13:45)
[2018-11-01] MEDS ORDERED: PROPOFOL INJECTION 50 ML IV ONE ×2 (13:52→14:32)
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
[2018-11-01 14:55] VITALS: BP 121/57
--- NOTE | 2018-11-01 15:08 | Anesthesia-General Post-Op ---
MAC Patient Condition Mental Status/LOC: Same as Preop Cardiovascular: Satisfactory Nausea/Vomiting: Absent Respiratory: Satisfactory Pain: Controlled Complications: Absent Post Op Complications Complications None Follow Up Care/Instructions Patient Instructions None needed. Anesthesiology Discharge Order Discharge Order Patient is doing well, no complaints, stable vital signs, no apparent adverse anesthesia problems. No complications reported per nursing. KAYLYNN GUAJARDO CRNA Nov 01, 2018 15:08
[2018-11-01 15:25] VITALS: BP 130/58
[2018-11-01 15:42] VITALS: BP 130/58
--- NOTE | 2018-11-02 01:45 | OPERATIVE REPORT ---
DATE OF SERVICE: 11/01/2018 ATTENDING PRIMARY CARE PHYSICIAN: Matt Moe MD. PREOPERATIVE DIAGNOSIS: Gastroesophageal reflux disease. POSTOPERATIVE DIAGNOSES: Reflux esophagitis stage II, small hiatal hernia approximately 1 to 1.5 cm in size, mild to moderate gastritis. PROCEDURE: EGD with biopsy. SURGEON: Michell Dalal MD. ANESTHESIA: Monitored anesthesia care. ESTIMATED BLOOD LOSS: Minimal. FINDINGS: As above in postoperative diagnoses. DISPOSITION: The patient tolerated the procedure well. INDICATIONS: The patient is a 48-year-old female who presented to the Emergency Department with mid upper back as well as epigastric pain as well as pain in the right upper abdominal quadrant. She had an ultrasound performed, which did show multiple gallstones as well as gallbladder wall thickening consistent with an acute calculous cholecystitis and underwent a cholecystectomy on 05/29/2018. She states that she has had a recurrence of epigastric burning sensation as well as discomfort; however, slightly different from what it was before. She thought that this was cardiac related and presented to the Emergency Department, which was negative. She does have a history of gastroesophageal reflux disease. DESCRIPTION OF PROCEDURE: The patient was brought to the endoscopy suite, laid in left lateral decubitus position with head elevated. After adequate IV pain and sedative medications and monitored anesthesia care, the mouthpiece was applied. Endoscope was placed in the mouth, visualizing the pharynx and hypopharyngeal region. Vocal cords, epiglottis and vallecula identified and appeared to be normal. Endoscope was gently intubated at the esophageal opening and esophagus insufflated. The endoscope was then advanced to the first, second and third portions of the esophagus at the level of the GE junction, reflux esophagitis stage II identified. There were no ulcers or strictures identified in this region. A biopsy was taken with forceps with visualization of good hemostasis. The endoscope was then advanced in the stomach and endoscope retroflexed, visualizing a small hiatal hernia approximately 1.5 cm in size. The patient also had clinical regurg of air with insufflation. There was a mild to moderate gastritis. No formal ulcerations, polyps or any neoplasms. A biopsy was taken of the stomach antrum to rule out H. pylori with visualization of good hemostasis. The endoscope was advanced through the pylorus and the first and second portion of the duodenum, which appeared normal and no distal obstructions. Endoscope was then slowly withdrawn while taking a second look and suctioning of residual air with no additional findings. The patient tolerated the procedure well. We will recommend medical management with the necessary lifestyle and diet accommodation including small and more frequent meals, avoiding eating at night as well as head elevation while lying supine. She also needs to avoid caffeinated beverages, spicy, greasy and acidic foods as well as proceed with some form of a diet and exercise regimen for weight maintenance. She was recently started on Protonix; however, we will start her on Carafate 1 gram q.i.d. as well. If she continues to have significant symptoms despite maximum medical therapy, she may be a candidate for a hiatal hernia repair or a sleeve gastrectomy if she chooses to. Job ID: [id number] DocumentID: [id number] Dictated Date: 11/01/2018 15:00:20 [place] Date: 11/02/2018 01:44:52 Dictated By: MICHELL DALAL MD
== END 2018-11-01 15:35 | disposition home or self-care (01) ==
LOC: ENDO 11:15
PROVIDERS: ATTEND Surgery
DX: K21.0 Gastro-esophageal reflux disease with esophagitis (principal); K44.9 Diaphragmatic hernia without obstruction or gangrene; K29.70 Gastritis, unspecified, without bleeding; E03.9 Hypothyroidism, unspecified; Z79.899 Other long term (current) drug therapy
CPT/HCPCS: 77067

== ENCOUNTER → 2018-11-01 | Outpatient (CLI) | payer BC ==
[~2018-11-01] MED LIST changes: +CHOL500050 PO; +PANT40TA3 PO; +SUCR1TAB36 PO
--- NOTE | 2018-11-01 19:09 | Diagnostic Imaging Report ---
INDICATION: Screening. The current study was also evaluated with a Computer Aided Detection (CAD) system. Comparison made with prior examination from 10/30/2017 back through 10/06/2013. 3D tomosynthesis was performed and reviewed. FINDINGS: The fibroglandular tissue is heterogeneously dense bilaterally. There is an unchanged nodular density in the lateral aspect of right breast. There are few benign type calcifications. There is no new dominant mass, spiculated lesion, or suspicious calcification identified. The skin, nipples, and axillae are unremarkable. IMPRESSION: Benign. ACR BI-RADS Category 2: Benign findings. Result letter will be mailed to the patient. Note: At least 10% of breast cancer is not imaged by mammography. Dictated by: Dictated on workstation # [id number]
== END ==
LOC: RAD 08:22
PROVIDERS: ATTEND Obstetrics & Gynecology
DX: Z12.31 Encounter for screening mammogram for malignant neoplasm of breast (principal)
CPT/HCPCS: 77067

== ENCOUNTER → 2018-11-05 | Outpatient (CLI) | payer BC ==
[~2018-11-05] MED LIST changes: +SUCR1TAB36 PO
== END ==
LOC: CARD 13:01
PROVIDERS: ATTEND Internal Medicine Cardiovascular Disease
DX: R07.89 Other chest pain (principal); G47.33 Obstructive sleep apnea (adult) (pediatric)
CPT/HCPCS: 93306

== ENCOUNTER → 2018-11-06 | Outpatient (CLI) | payer BC ==
[~2018-11-06] MED LIST changes: +CATHETER FLUSH 10 ML SYR IV PRN
[2018-11-06 09:52] VITALS: BP 172/79
--- NOTE | 2018-11-06 15:16 | STRESS TEST ---
DATE OF SERVICE: 11/06/2018 EXERCISE MYOVIEW STRESS TEST REPORT REFERRING PHYSICIAN: Dr. Moe. Baseline heart rate is 72. Baseline blood pressure is 128/54. Baseline EKG is sinus rhythm with no ischemic changes. In summary, the patient was injected with 10.7 mCi of technetium-99 Myoview and the resting images were obtained. Then, the patient started exercising with a baseline heart rate, blood pressure and EKG as mentioned above. At peak stress level, the patient was injected with 29.8 mCi of technetium-99 Myoview. She was able to exercise for a total of 4 minutes on standard Arturo protocol, achieving maximum heart rate of 159, which is 92% of maximum expected heart rate. With peak exercise level, blood pressure was 185/81. EKG was showing minimal nondiagnostic changes. During recovery, heart rate and blood pressure returned to the baseline. EKG returned to baseline. The resting and stress images were reviewed and compared in the short axis, horizontal long axis and vertical long axis views. Review of the images showed good radiotracer uptake with typical female pattern. No significant ischemia or infarction. SSS is 3, SDS 3 and TID value 0.92. On the gated images, the gated images, the left ventricle appeared to be normal size with normal contractility. Calculated ejection fraction is 70%. CONCLUSION: 1. Fair exercise tolerance, a total of 4 minutes on standard Arturo protocol, total of 5.6 METS achieving 92% of maximum expected heart rate. 2. Appropriate heart rate with the hypertensive response to exercise, returned to baseline during the recovery. 3. Nondiagnostic EKG changes with exercise returned to baseline during recovery. 4. No typical female pattern with no significant ischemia or infarction on SPECT images. 5. Normal left ventricular size with normal contractility. Calculated ejection fraction is 70%. Job ID: [id number] DocumentID: [id number] Dictated Date: 11/06/2018 15:05:37 Watch Adjuster Date: 11/06/2018 15:15:47 Dictated By: ULICES ROWLEY MD
== END ==
LOC: CARD 07:47
PROVIDERS: ATTEND Internal Medicine Cardiovascular Disease
DX: R07.89 Other chest pain (principal); G47.33 Obstructive sleep apnea (adult) (pediatric)
CPT/HCPCS: 78452; 93017

== ENCOUNTER 2018-12-02 11:31 | Emergency (ER) | payer BC ==
[~2018-12-02] VITALS: Ht 172.7 cm; Wt 124.7 kg
[~2018-12-02 11:31] MED LIST changes: -CATHETER FLUSH 10 ML SYR IV PRN
[2018-12-02] MEDS ORDERED: ANTACID SUSP 30 ML UDC (MYLANTA) ONE (11:34)
[2018-12-02] MEDS ORDERED: LIDOCAINE 2% VISCOUS 15 ML UDC ONE (11:34)
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
--- NOTE | 2018-12-02 11:44 | ED Chest Pain ---
General Stated Complaint: CHEST PAIN Source: patient Exam Limitations: no limitations History of Present Illness Date Seen by Provider: December 02, 2018 Time Seen by Provider: 11:41 Initial Comments To ER with sudden onset central chest pain described as "burning". This began 30 minutes prior to arrival while standing still at work. She was diaphoretic at the onset of this. No nausea, she does have some shortness of breath. This will be the fourth time she's had this, initially believed to be related to gallbladder, she has since had a cholecystectomy. She's also had endoscopy and followed with cardiology for echocardiogram to evaluate this. She did take a full dose aspirin this morning. She cannot identify any modifying factors. She is not diabetic. She is overweight. She is a nonsmoker. She does not know her lipid status. She does have a family history of [place] including father with [place] at the age of 39. 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 NTG SL CIVIL SERVICE CLERK: No Allergies and Home Medications Allergies Coded Allergies: erythromycin base (Unverified Allergy, Mild, ABD PAIN, 10/24/18) Uncoded Allergies: OPIATES (Allergy, Mild, 07/20/09) Home Medications Cholecalciferol (Vitamin D3) 5,000 Unit Capsule, 5,000 UNIT PO DAILY, (Reported) Estradiol 1 Mg Tablet, 1 MG PO DAILY, (Reported) LAST FILLED #30 9-25-18 Levothyroxine Sodium 50 Mcg Tablet, 50 MCG PO DAILY, (Reported) Pantoprazole Sodium 40 Mg Tablet.dr, 40 MG PO DAILY, (Reported) Sucralfate 1 Gm Tablet, 1 GM PO QID Prescribed by: MICHELL BOSE on 11/01/18 1336 Vitamin B Complex 1 Each Tablet, 1 TAB PO DAILY, (Reported) Patient Home Medication List Home Medication List Reviewed: Yes Review of Systems Review of Systems Constitutional: see HPI; No chills; diaphoresis EENTM: No Symptoms Reported Respiratory: See HPI; Denies Cough, Denies Orthopnea; Shortness of Air (she states that she thinks the shortness of air is because the pain) Cardiovascular: See HPI, Chest Pain; Denies Edema, Denies Irregular Heart Rate , Denies Lightheadedness, Denies Palpitations, Denies Syncope Gastrointestinal: See HPI Genitourinary: No Symptoms Reported Musculoskeletal: no symptoms reported Skin: no symptoms reported Psychiatric/Neurological: No Symptoms Reported Endocrine: No Symptoms Reported Past Qkvvmbr-Aychbh-Yjjkua Hx Patient Social History Alcohol Beverage of Choice: Vodka 2nd Hand Smoke Exposure: Yes Recent Foreign Travel: No Contact w/Someone Who Travel: No Recent Hopitalizations: No Immunizations Up To Date Tetanus Booster (TDap): Less than 5yrs Date of Influenza Vaccine: Apr 29, 2018 Seasonal Allergies Seasonal Allergies: No Past Medical History Surgeries: Yes (BMT) Bladder Surgery, Section, Ear Surgery, Gallbladder, Hysterectomy, Oophorectomy, Thyroidectomy, Tonsillectomy, Tubal Ligation Respiratory: Yes Sleep Apnea Currently Using CPAP: Yes Cardiac: No Neurological: Yes Headaches /Migraines Reproductive Disorders: Yes 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 Sexually Transmitted Disease: No Genitourinary: Yes Kidney Infection, UTI-Chronic Gastrointestinal: Yes (FATTY LIVER) Gastroesophageal Reflux Musculoskeletal: Yes Back Injury, Chronic Back Pain Endocrine: Yes Hypothyroidsim HEENT: Yes (GLASSES) Loss of Vision: Bilateral Hearing Impairment: Denies Cancer: No Psychosocial: Yes Sleep Difficulties Integumentary: Yes (CHILDHOOD - GONE ) Eczema Blood Disorders: No Adverse Reaction/Blood Tranf: No (N/A) Family Medical History Arthritis Asthma Cardiovascular disease Cataracts Colon cancer Completed stroke Dementia Glaucoma Hypertension Myocardial infarction Osteoporosis Psychosocial problem Respiratory disorder Visual disorder CAD Under 55 Years Old Physical Exam Vital Signs Vital Signs - First Documented 12/02/18 11:31 Temp 97.5 Pulse 75 Resp 12 B/P (MAP) 142/112 (122) Pulse Ox 99 O2 Delivery Room Air Capillary Refill : Height, Weight, BMI Height: 5'8.00" Weight: 280lbs. 0.0oz. 127.631345qm; 42.6 BMI Method:Stated General Appearance: WD/WN, Mild Distress (on arrival she is clutching her chest , keeps eyes closed when talking to us, not diaphoretic, oxygen saturation is 100% on room air, EKG with active chest pain shows normal sinus rhythm without any ST segment changes.) Neck: Full Range of Motion, Normal Inspection Respiratory: Chest Non Tender, Lungs Clear, Normal Breath Sounds, No Accessory Muscle Use, No Respiratory Distress Cardiovascular: Regular Rate, Rhythm, Normal Peripheral Pulses Gastrointestinal: Normal Bowel Sounds, Non Tender, Soft Extremity: Normal Capillary Refill, Normal Inspection Neurologic/Psychiatric: Alert, Oriented x3 Skin: Normal Color, Warm/Dry Progress/Results/Core Measures Results/Orders Lab Results Laboratory Tests Test 12/02/18 11:38 12/02/18 14:00 Range/Units White Blood Count 7.2 4.3-11.0 10^3/uL Red Blood Count 4.88 4.35-5.85 10^6/uL Hemoglobin 13.7 11.5-16.0 G/DL Hematocrit 42 35-52 % Mean Corpuscular Volume 85 80-99 FL Mean Corpuscular Hemoglobin 28 25-34 PG Mean Corpuscular Hemoglobin Concent 33 32-36 G/DL Red Cell Distribution Width 12.8 10.0-14.5 % Platelet Count 329 130-400 10^3/uL Mean Platelet Volume 9.5 7.4-10.4 FL Neutrophils (%) (Auto) 55 42-75 % Lymphocytes (%) (Auto) 33 12-44 % Monocytes (%) (Auto) 10 0-12 % Eosinophils (%) (Auto) 3 0-10 % Basophils (%) (Auto) 0 0-10 % Neutrophils # (Auto) 3.9 1.8-7.8 X 10^3 Lymphocytes # (Auto) 2.3 1.0-4.0 X 10^3 Monocytes # (Auto) 0.7 0.0-1.0 X 10^3 Eosinophils # (Auto) 0.2 0.0-0.3 10^3/uL Basophils # (Auto) 0.0 0.0-0.1 10^3/uL Prothrombin Time 12.4 12.2-14.7 SEC INR Comment 0.9 0.8-1.4 Activated Partial Thromboplast Time 34 24-35 SEC D-Dimer 0.51 H 0.00-0.49 UG/ML Sodium Level 141 135-145 MMOL/L Potassium Level 3.7 3.6-5.0 MMOL/L Chloride Level 105 98-107 MMOL/L Carbon Dioxide Level 24 21-32 MMOL/L Anion Gap 12 5-14 MMOL/L Blood Urea Nitrogen 11 7-18 MG/DL Creatinine 0.80 0.60-1.30 MG/DL Estimat Glomerular Filtration Rate > 60 BUN/Creatinine Ratio 14 Glucose Level 97 70-105 MG/DL Calcium Level 10.3 H 8.5-10.1 MG/DL Corrected Calcium 10.1 8.5-10.1 MG/DL Magnesium Level 2.0 1.8-2.4 MG/DL Total Bilirubin 0.5 0.1-1.0 MG/DL Aspartate Amino Transf (AST/SGOT) 60 H 5-34 U/L Alanine Aminotransferase (ALT/SGPT) 46 0-55 U/L Alkaline Phosphatase 146 H 40-136 U/L Myoglobin 28.6 10.0-92.0 NG/ML Troponin I < 0.028 < 0.028 <0.028 NG/ML B-Type Natriuretic Peptide < 10.0 <100.0 PG/ML Total Protein 7.6 6.4-8.2 GM/DL Albumin 4.3 3.2-4.5 GM/DL Amylase Level 89 25-125 U/L Lipase 24 8-78 U/L My Orders Orders - VARGAS WREN APRN Cbc With Automated Diff (12/02/18 11:38) Magnesium (12/02/18 11:38) Chest 1 View, Ap/Pa Only (12/02/18 11:38) Cardiac Profile 1 (12/02/18 11:38) Comprehensive Metabolic Panel (12/02/18 11:38) Myoglobin Serum (12/02/18 11:38) Protime With Inr (12/02/18 11:38) Partial Thromboplastin Time (12/02/18 11:38) O2 (12/02/18 11:38) Monitor-Rhythm Ecg Trace Only (12/02/18 11:38) Lipid Panel (12/03/18 06:00) Ed Iv/Invasive Line Start (12/02/18 11:38) Lipase (12/02/18 11:38) Amylase (12/02/18 11:38) BNP (12/02/18 11:38) Antacid Suspension (Mylanta Suspension (12/02/18 11:45) Lidocaine 2% Viscous 15 Ml (Xylocaine Vi (12/02/18 11:45) Fibrin Degradation Products (12/02/18 11:38) Ct Angio Chest W (12/02/18 12:21) Iohexol Injection (Omnipaque 350 Mg/Ml 1 (12/02/18 13:30) Received Contrast (Hold Metformin- Contr (12/02/18 13:30) Troponin I (12/02/18 13:45) Medications Given in ED Current Medications Medications Dose Ordered Sig/Garrett Route Start Time Stop Time Status Last Admin Dose Admin Al Hydrox/Mg Hydrox/Simethicone 30 ml ONCE ONCE PO 12/02/18 11:45 12/02/18 11:46 DC 12/02/18 11:40 30 ML Iohexol 150 ml ONCE ONCE IV 12/02/18 13:30 12/02/18 13:36 DC 12/02/18 13:50 150 ML Lidocaine HCl 10 ml ONCE ONCE PO 12/02/18 11:45 12/02/18 11:46 DC 12/02/18 11:40 10 ML Vital Signs/I&O 12/02/18 11:31 Temp 97.5 Pulse 75 Resp 12 B/P (MAP) 142/112 (122) Pulse Ox 99 O2 Delivery Room Air Departure Communication (Admissions) 12:30-her pain is down to a 3 out of 10 from a 7 out of 10 on arrival after the administration of a GI cocktail only. She is on estradiol and has a slightly elevated d-dimer, I will send her over for CT angio of the chest. Her EKG is unremarkable. On November 06 of this year she had a negative stress test done here by Dr. Borja, on November 01 of this year she had endoscopy showing reflux esophagitis stage II, small hiatal hernia and gastritis. I suspect that the source of her pain is esophageal. 1442-discussed the labs and imaging studies with Dr. Borja. My plan to send the patient home and have her follow-up with him and surgery. She is already on Carafate and Protonix. Calcium channel yoselin might be helpful at this is a esophageal spasm and is recurrently bothersome. Impression Primary Impression: Esophageal spasm Additional Impression: Esophagitis determined by endoscopy Disposition: HOME, SELF-CARE Condition: Stable Departure-Patient Inst. Decision time for Depature: 12:32 Referrals: SUREKHA GAUTHIER MD (PCP/Family) Primary Care Physician Patient Instructions: Chest Pain (DC) Add. Discharge Instructions: 1. Call Dr. Bose and Dr. Borja to make an appointment for follow-up. I believe this is your esophagus, not your heart causing the pain. Continue to take the sucralfate and the pantoprazole for acid reduction. Return to ER for any concerns. WREN,PETER J DIRECTOR DECISION SUPPORT December 02, 2018 11:44
[2018-12-02] MEDS ORDERED: ANTACID SUSP 30 ML UDC (MYLANTA) PO ONE (11:45)
[2018-12-02] MEDS ORDERED: LIDOCAINE 2% VISCOUS 15 ML UDC PO ONE (11:45)
[2018-12-02 11:52] LABS: BASOPHILS % (AUTO) 0 % (0-10); EOSINOPHILS # (AUTO) 0.2 10^3/uL (0.0-0.3); EOSINOPHILS % (AUTO) 3 % (0-10); HEMATOCRIT 42 % (35-52); HEMOGLOBIN 13.7 G/DL (11.5-16.0); LYMPHOCYTES # (AUTO) 2.3 X 10^3 (1.0-4.0); LYMPHOCYTES % (AUTO) 33 % (12-44); MEAN CORPUSCULAR HEMOGLOBIN 28 PG (25-34); MEAN CORPUSCULAR HGB CONC 33 G/DL (32-36); MEAN CORPUSCULAR VOLUME 85 FL (80-99); MEAN PLATELET VOLUME 9.5 FL (7.4-10.4); MONOCYTES # (AUTO) 0.7 X 10^3 (0.0-1.0); MONOCYTES % (AUTO) 10 % (0-12); NEUTROPHILS # (AUTO) 3.9 X 10^3 (1.8-7.8); NEUTROPHILS % (AUTO) 55 % (42-75); PLATELET COUNT 329 10^3/uL (130-400); RED CELL DISTRIBUTION WIDTH 12.8 % (10.0-14.5); WHITE BLOOD COUNT 7.2 10^3/uL (4.3-11.0)
--- NOTE | 2018-12-02 12:09 | Diagnostic Imaging Report ---
INDICATION: Chest pain. COMPARISON: 10/14/2018. FINDINGS: Lungs are clear. The heart size and vascularity are normal. There is no effusion or pneumothorax. IMPRESSION: No acute appearing abnormality. Dictated by: Dictated on workstation # [id number]
[2018-12-02 12:14] LABS: FIBRIN DEGRADATION PRODUCTS 0.51 UG/ML (0.00-0.49); INR 0.9 (0.8-1.4); PROTHROMBIN TIME PATIENT 12.4 SEC (12.2-14.7)
[2018-12-02 12:16] LABS: ALANINE AMINOTRANSFERASE 46 U/L (0-55); ALBUMIN 4.3 GM/DL (3.2-4.5); ALKALINE PHOSPHATASE 146 U/L (40-136); AMYLASE 89 U/L (25-125); BILIRUBIN,TOTAL 0.5 MG/DL (0.1-1.0); BUN/CREATININE RATIO 14; CALCIUM 10.3 MG/DL (8.5-10.1); CARBON DIOXIDE 24 MMOL/L (21-32); CHLORIDE 105 MMOL/L (98-107); GFR ESTIMATED > 60; GLUCOSE 97 MG/DL (70-105); LIPASE 24 U/L (8-78); POTASSIUM 3.7 MMOL/L (3.6-5.0); SODIUM 141 MMOL/L (135-145); TOTAL PROTEIN 7.6 GM/DL (6.4-8.2)
[2018-12-02] MEDS ORDERED: HOLD METFORMIN - RECEIVED CONTRAST 20 ML VIAL IV SCH (13:30)
[2018-12-02] MEDS ORDERED: IOHEXOL 350 MG/ML 150 ML (OMNIPAQUE 350) VIAL IV ONE (13:30)
[2018-12-02 14:42] VITALS: BP 130/81
--- NOTE | 2018-12-03 08:18 | Diagnostic Imaging Report ---
PROCEDURE: CT angiography of the chest with contrast. TECHNIQUE: Multiple contiguous axial images were obtained through the chest after uneventful bolus administration of intravenous contrast. 2D reconstructed CTA MIP acquisitions were also performed. Auto Exposure Controls were utilized during the CT exam to meet ALARA standards for radiation dose reduction. INDICATION: Chest pain. Fever. COMPARISON: None FINDINGS: There is no acute pulmonary embolus to the first subsegmental division of pulmonary arteries. Heart size is within normal limits. No pathologically enlarged or morphologically abnormal adenopathy is seen within the mediastinum, yandy, nor axilla. Lung windows show 4 mm subpleural micronodule within the lateral margins of the superior segment of the left lower lobe (image 79, series 5). There is also mild scarring and/or atelectasis within both mid and lower lung castro. There is otherwise no focal consolidation, large effusion, nor pneumothorax. Osseous structures show no acute abnormalities. No lytic or blastic bony lesions are identified. Included portions of the upper abdomen show punctate nonobstructive right renal calculus. IMPRESSION: 1. No acute pulmonary embolus. 2. No acute cardiopulmonary process. 3. Punctate nonobstructive right renal calculus. Dictated by: Dictated on workstation # [id number]
== END 2018-12-02 15:00 | disposition home or self-care (01) ==
LOC: EDUNIT# 11:31 → ER 11:32
DX: K22.4 Dyskinesia of esophagus (principal); K21.0 Gastro-esophageal reflux disease with esophagitis; G47.30 Sleep apnea, unspecified; G43.909 Migraine, unspecified, not intractable, without status migrainosus; E03.9 Hypothyroidism, unspecified; Z80.0 Family history of malignant neoplasm of digestive organs; Z87.19 Personal history of other diseases of the digestive system; Z87.448 Personal history of other diseases of urinary system; Z87.440 Personal history of urinary (tract) infections; Z82.49 Family history of ischemic heart disease and other diseases of the circulatory system; Z91.041 Radiographic dye allergy status; Z88.5 Allergy status to narcotic agent; Z77.22 Contact with and (suspected) exposure to environmental tobacco smoke (acute) (chronic); Z98.890 Other specified postprocedural states; Z90.710 Acquired absence of both cervix and uterus; Z90.89 Acquired absence of other organs; Z98.51 Tubal ligation status
CPT/HCPCS: 36415; 71045; 71275; 80053; 82150; 83690; 83735; 83874; 83880; 84484; 85025; 85379; 85610; 85730; 93005; 93041

== ENCOUNTER 2019-03-07 14:59 | Emergency (ER) | payer BC ==
[~2019-03-07] VITALS: Ht 172.7 cm; Wt 124.7 kg
[2019-03-07] MEDS ORDERED: LIDOCAINE 2% VISCOUS 15 ML UDC PO ONE (15:15)
[2019-03-07] MEDS ORDERED: ANTACID SUSP 30 ML UDC (MYLANTA) PO ONE (15:15)
--- NOTE | 2019-03-07 15:15 | ED Chest Pain ---
General Chief Complaint: Chest Pain Stated Complaint: CHEST PAIN Source: patient Exam Limitations: no limitations History of Present Illness Date Seen by Provider: Mar 07, 2019 Time Seen by Provider: 14:56 Initial Comments Here with report of central lower chest pain and epigastric pain that she describes as burning and pressure and started at noon today. Has had episodes previous similar and seems to be related to esophagitis. Has had nausea but no vomiting. States that she was sweating earlier but does not appear to be sweating now. Timing/Duration: 1-3 hours Severity/Quality: moderate, burning, pressure Location: central Radiation: no radiation Activities at Onset: none Prior CP/Workup: echocardiography Modifying Factors: worse with exercise ASA po DENTAL APPLIANCE FIXER: No NTG SL DENTAL APPLIANCE FIXER: No Associated Symptoms: No abdominal pain, No back pain; diaphoresis (reported), heartburn, nausea/vomiting, shortness of breath; No weakness Allergies and Home Medications Allergies Coded Allergies: erythromycin base (Unverified Allergy, Mild, ABD PAIN, 10/24/18) Uncoded Allergies: OPIATES (Allergy, Mild, 07/20/09) Home Medications Cholecalciferol (Vitamin D3) 5,000 Unit Capsule, 5,000 UNIT PO DAILY, (Reported) Estradiol 1 Mg Tablet, 1 MG PO DAILY, (Reported) LAST FILLED #30 9-25-18 Levothyroxine Sodium 50 Mcg Tablet, 50 MCG PO DAILY, (Reported) Pantoprazole Sodium 40 Mg Tablet.dr, 40 MG PO DAILY, (Reported) Sucralfate 1 Gm Tablet, 1 GM PO QID Prescribed by: MICHELL DALAL on 11/01/18 2246 Vitamin B Complex 1 Each Tablet, 1 TAB PO DAILY, (Reported) Patient Home Medication List Home Medication List Reviewed: Yes Review of Systems Review of Systems Constitutional: see HPI; No chills, No fever EENTM: No Symptoms Reported Respiratory: See HPI, Cough; Denies Wheezing Cardiovascular: No Symptoms Reported, Chest Pain; Denies Edema, Denies Irregular Heart Rate Gastrointestinal: Abdominal Pain (epigastric pain); Denies Diarrhea; Nausea; Denies Vomiting All Other Systems Reviewed Negative Unless Noted: Yes Past Qbdriao-Rczpyw-Hjumqv Hx Past Med/Social Hx: Reviewed Nursing Past Med/Soc Hx Patient Social History Alcohol Use: Rarely Uses Number of Drinks Today: FF Alcohol Beverage of Choice: Vodka Recreational Drug Use: No 2nd Hand Smoke Exposure: Yes Recent Foreign Travel: No Contact w/Someone Who Travel: No Recent Hopitalizations: No Physical Abuse: No Sexual Abuse: No Mistreated: No Fear: No Immunizations Up To Date Tetanus Booster (TDap): Less than 5yrs Date of Influenza Vaccine: Apr 29, 2018 Seasonal Allergies Seasonal Allergies: No Past Medical History Surgeries: Yes (BMT) Bladder Surgery, Section, Ear Surgery, Gallbladder, Hysterectomy, Oophorectomy, Thyroidectomy, Tonsillectomy, Tubal Ligation Respiratory: Yes Sleep Apnea Currently Using CPAP: Yes Cardiac: No Neurological: Yes Headaches /Migraines Reproductive Disorders: Yes 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 Sexually Transmitted Disease: No Genitourinary: Yes Kidney Infection, UTI-Chronic Gastrointestinal: Yes (FATTY LIVER) Gastroesophageal Reflux Musculoskeletal: Yes Back Injury, Chronic Back Pain Endocrine: Yes Hypothyroidsim HEENT: Yes (GLASSES) Loss of Vision: Bilateral Hearing Impairment: Denies Cancer: No Psychosocial: Yes Sleep Difficulties Integumentary: Yes (CHILDHOOD - GONE ) Eczema Blood Disorders: No Adverse Reaction/Blood Tranf: No (N/A) Family Medical History Reviewed Nursing Family Hx Arthritis Asthma Cardiovascular disease Cataracts Colon cancer Completed stroke Dementia Glaucoma Hypertension Myocardial infarction Osteoporosis Psychosocial problem Respiratory disorder Visual disorder CAD Under 55 Years Old Physical Exam Vital Signs Vital Signs - First Documented 03/07/19 15:05 Temp 97.6 Pulse 78 Resp 18 Pulse Ox 99 O2 Delivery Room Air Capillary Refill : Height, Weight, BMI Height: 5'8.00" Weight: 275lbs. 0.0oz. 124.507162jp; 42.6 BMI Method:Stated General Appearance: No Apparent Distress, WD/WN HEENT: PERRL/EOMI, Pharynx Normal Neck: Non Tender, Supple Respiratory: Lungs Clear, Normal Breath Sounds Cardiovascular: Regular Rate, Rhythm, No Murmur Gastrointestinal: Non Tender, Soft Extremity: Normal Inspection, Normal Range of Motion, Non Tender Neurologic/Psychiatric: Alert, Oriented x3 Skin: Normal Color, Warm/Dry Progress/Results/Core Measures Results/Orders Lab Results Laboratory Tests Test 03/07/19 15:19 03/07/19 17:12 Range/Units White Blood Count 8.2 4.3-11.0 10^3/uL Red Blood Count 4.47 4.35-5.85 10^6/uL Hemoglobin 12.8 11.5-16.0 G/DL Hematocrit 39 35-52 % Mean Corpuscular Volume 88 80-99 FL Mean Corpuscular Hemoglobin 29 25-34 PG Mean Corpuscular Hemoglobin Concent 33 32-36 G/DL Red Cell Distribution Width 13.1 10.0-14.5 % Platelet Count 252 130-400 10^3/uL Mean Platelet Volume 10.1 7.4-10.4 FL Neutrophils (%) (Auto) 75 42-75 % Lymphocytes (%) (Auto) 16 12-44 % Monocytes (%) (Auto) 7 0-12 % Eosinophils (%) (Auto) 1 0-10 % Basophils (%) (Auto) 0 0-10 % Neutrophils # (Auto) 6.2 1.8-7.8 X 10^3 Lymphocytes # (Auto) 1.4 1.0-4.0 X 10^3 Monocytes # (Auto) 0.6 0.0-1.0 X 10^3 Eosinophils # (Auto) 0.1 0.0-0.3 10^3/uL Basophils # (Auto) 0.0 0.0-0.1 10^3/uL Prothrombin Time 12.1 L 12.2-14.7 SEC INR Comment 0.9 0.8-1.4 Activated Partial Thromboplast Time 31 24-35 SEC Sodium Level 141 135-145 MMOL/L Potassium Level 4.1 3.6-5.0 MMOL/L Chloride Level 107 98-107 MMOL/L Carbon Dioxide Level 27 21-32 MMOL/L Anion Gap 7 5-14 MMOL/L Blood Urea Nitrogen 12 7-18 MG/DL Creatinine 0.76 0.60-1.30 MG/DL Estimat Glomerular Filtration Rate > 60 BUN/Creatinine Ratio 16 Glucose Level 129 H 70-105 MG/DL Calcium Level 9.5 8.5-10.1 MG/DL Corrected Calcium 9.5 8.5-10.1 MG/DL Magnesium Level 1.7 1.6-2.4 MG/DL Total Bilirubin 0.9 0.1-1.0 MG/DL Aspartate Amino Transf (AST/SGOT) 174 H 5-34 U/L Alanine Aminotransferase (ALT/SGPT) 270 H 0-55 U/L Alkaline Phosphatase 409 H 40-136 U/L Myoglobin 27.5 10.0-92.0 NG/ML Troponin I < 0.028 < 0.028 <0.028 NG/ML B-Type Natriuretic Peptide 18.9 <100.0 PG/ML Total Protein 7.4 6.4-8.2 GM/DL Albumin 4.0 3.2-4.5 GM/DL Lipase 28 8-78 U/L My Orders Orders - ROBBIE SIMONS MD Sucralfate Tablet (Carafate Tablet) (03/07/19 16:15) Famotidine Injection (Pepcid Injection) (03/07/19 16:15) Troponin I (03/07/19 17:02) Ekg Tracing (03/07/19 17:02) Medications Given in ED Current Medications Medications Dose Ordered Sig/Garrett Route Start Time Stop Time Status Last Admin Dose Admin Al Hydrox/Mg Hydrox/Simethicone 30 ml ONCE ONCE PO 03/07/19 15:15 03/07/19 15:16 DC 03/07/19 15:13 30 ML Lidocaine HCl 15 ml ONCE ONCE PO 03/07/19 15:15 03/07/19 15:16 DC 03/07/19 15:13 15 ML Sucralfate 1 gm ONCE ONCE PO 03/07/19 16:15 03/07/19 16:18 DC 03/07/19 16:25 1 GM Vital Signs/I&O 03/07/19 03/07/19 15:05 15:07 Temp 97.6 Pulse 78 Resp 18 B/P (MAP) Pulse Ox 99 99 O2 Delivery Room Air Room Air Progress Progress Note : Progress Note Seen and evaluated. IV, labs, EKG, chest x-ray, ASA 324 mg by mouth and GI cocktail ordered. Monitor patient. 1710: Repeat troponin and EKG ordered. I did give her Carafate 1 g by mouth as well as Pepcid 20 mg IV for continued pain. Pain is now down to a 4 and seems to be centered in the epigastric region. Initial labs and evaluation do not indicate anything significant related to cardiac. Liver enzymes are elevated but patient does have history of this and she is midrange and her labs compared to previous. 1735: I did discuss with the patient regarding potential for further imaging. Records review shows that she's had [address] scans this year including CT imaging of the chest and CT abdom en and pelvis. There is no abnormalities noted in the upper abdomen during the scans and 90 do not believe it is in her best interest to repeat scan her now. Patient is feeling more comfortable. Pending troponin. Repeat EKG negative. 1809: Repeat troponin negative. Discharged home with return precautions. Patient verbalize understanding instructions and agreement with plan. Initial ECG Impression Date: Mar 07, 2019 Initial ECG Impression Time: 15:07 Initial ECG Rate: 68 Initial ECG Rhythm: Normal Sinus Initial ECG Comparisson: Unchanged Comment Sinus rhythm with normal axis. No evidence of ST elevation SD. Similar to previous. Interpreted by me. EKG : EKG Time: 17:19 Rate: 61 Rhythm: Normal Sinus Intervals: Normal ECG Comparisson: Unchanged ECG Impression: Normal Comment Sinus rhythm with normal axis. No evidence of ST elevation SD. Similar to previous done earlier today. Interpreted by me. Diagnostic Imaging Diagonstic Imaging: Xray Plain Films/CT/US/NM/MRI: chest Comments NAME: [facility] REC#: [id number] PT STATUS: REG ER : 1970 PHYSICIAN: VARGAS WREN APRN ADMIT DATE: 03/07/19/ER Signed Date of Exam: 03/07/19 CHEST 1 VIEW, AP/PA ONLY INDICATION: Epigastric pain x3 hours. Nausea. TECHNIQUE: Single view chest 3:21 PM. CORRELATION STUDY: By 2018 FINDINGS: The heart size, mediastinal configuration and pulmonary vascularity are within normal limits. Linear area of likely scarring at the left lung base, unchanged. The lungs are clear with no consolidating infiltrate. There is no significant effusion or pneumothorax. IMPRESSION: 1. No radiographic findings to suggest acute abnormality of the chest. Dictated by: Dictated on workstation # [id number] Dict: 03/07/19 1528 Trans: 03/07/19 1530 Interpreted by: KERVIN METCALF DO Electronically signed by: KERVIN METCALF DO 03/07/19 1530 Departure Impression Primary Impression: Chest pain Qualified Codes: R07.9 - Chest pain, unspecified Additional Impression: Epigastric abdominal pain Disposition: 01 HOME, SELF-CARE Condition: Improved Departure-Patient Inst. Decision time for Depature: 17:37 Referrals: SUREKHA GAUTHIER MD (PCP/Family) Primary Care Physician Patient Instructions: Acute Abdomen (Belly Pain), Adult (DC), Chest Pain (DC) Add. Discharge Instructions: All discharge instructions reviewed with patient and/or family. Voiced understanding. Take medications as directed. Take your pantoprazole twice daily for the next 7 days and then return to daily dosing. It is very important that you take your Carafate/sucralfate as prescribed. Take that prior to meals and before bedtime. Use should chewable tablet to a slurry and then swallow. Return for worse pain, fever, vomiting, weakness, breathing problems or other concerns as needed. Follow-up with your Dr. at the beginning of next week for recheck and further evaluation. 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 ROBBIE SIMONS MD Mar 07, 2019 15:15
[2019-03-07 15:31] LABS: BASOPHILS % (AUTO) 0 % (0-10); EOSINOPHILS # (AUTO) 0.1 10^3/uL (0.0-0.3); EOSINOPHILS % (AUTO) 1 % (0-10); HEMATOCRIT 39 % (35-52); HEMOGLOBIN 12.8 G/DL (11.5-16.0); LYMPHOCYTES # (AUTO) 1.4 X 10^3 (1.0-4.0); LYMPHOCYTES % (AUTO) 16 % (12-44); MEAN CORPUSCULAR HEMOGLOBIN 29 PG (25-34); MEAN CORPUSCULAR HGB CONC 33 G/DL (32-36); MEAN CORPUSCULAR VOLUME 88 FL (80-99); MEAN PLATELET VOLUME 10.1 FL (7.4-10.4); MONOCYTES # (AUTO) 0.6 X 10^3 (0.0-1.0); MONOCYTES % (AUTO) 7 % (0-12); NEUTROPHILS # (AUTO) 6.2 X 10^3 (1.8-7.8); NEUTROPHILS % (AUTO) 75 % (42-75); PLATELET COUNT 252 10^3/uL (130-400); RED CELL DISTRIBUTION WIDTH 13.1 % (10.0-14.5); WHITE BLOOD COUNT 8.2 10^3/uL (4.3-11.0)
--- NOTE | 2019-03-07 15:33 | Diagnostic Imaging Report ---
INDICATION: Epigastric pain x3 hours. Nausea. TECHNIQUE: Single view chest 3:21 PM. CORRELATION STUDY: By 2018 FINDINGS: The heart size, mediastinal configuration and pulmonary vascularity are within normal limits. Linear area of likely scarring at the left lung base, unchanged. The lungs are clear with no consolidating infiltrate. There is no significant effusion or pneumothorax. IMPRESSION: 1. No radiographic findings to suggest acute abnormality of the chest. Dictated by: Dictated on workstation # [id number]
[2019-03-07 15:38] LABS: INR 0.9 (0.8-1.4); PROTHROMBIN TIME PATIENT 12.1 SEC (12.2-14.7)
[2019-03-07 15:52] LABS: ALANINE AMINOTRANSFERASE 270 U/L (0-55); ALKALINE PHOSPHATASE 409 U/L (40-136); BILIRUBIN,TOTAL 0.9 MG/DL (0.1-1.0); BUN/CREATININE RATIO 16; CALCIUM 9.5 MG/DL (8.5-10.1); CARBON DIOXIDE 27 MMOL/L (21-32); CHLORIDE 107 MMOL/L (98-107); CREATININE SERUM 0.76 MG/DL (0.60-1.30); GFR ESTIMATED > 60; GLUCOSE 129 MG/DL (70-105); LIPASE 28 U/L (8-78); MAGNESIUM 1.7 MG/DL (1.6-2.4); POTASSIUM 4.1 MMOL/L (3.6-5.0); SODIUM 141 MMOL/L (135-145); TOTAL PROTEIN 7.4 GM/DL (6.4-8.2)
[2019-03-07] MEDS ORDERED: SUCRALFATE 1 GM (CARAFATE) TAB PO ONE (16:15)
[2019-03-07] MEDS ORDERED: FAMOTIDINE 20MG/2ML IV (PEPCID) IV STA (16:15)
[2019-03-07] MEDS ORDERED: KETOROLAC 30 MG/ML VIAL ONE (18:10)
[2019-03-07 18:21] VITALS: BP 138/79
[2019-03-07] MEDS ORDERED: KETOROLAC 30 MG/ML VIAL IVP ONE (18:30)
== END 2019-03-07 18:20 | disposition home or self-care (01) ==
LOC: EDUNIT# 14:59 → ER 14:59
DX: R10.13 Epigastric pain (principal); R07.89 Other chest pain; G47.30 Sleep apnea, unspecified; G43.909 Migraine, unspecified, not intractable, without status migrainosus; K21.9 Gastro-esophageal reflux disease without esophagitis; E03.9 Hypothyroidism, unspecified; Z88.1 Allergy status to other antibiotic agents; Z88.5 Allergy status to narcotic agent; Z77.22 Contact with and (suspected) exposure to environmental tobacco smoke (acute) (chronic); Z90.710 Acquired absence of both cervix and uterus; Z98.51 Tubal ligation status
CPT/HCPCS: 36415; 71045; 80053; 83690; 83735; 83874; 83880; 84484; 85025; 85610; 85730; 93005; 93041

== ENCOUNTER → 2020-02-18 | Outpatient (CLI) | payer BC, OTHER ==
--- NOTE | 2020-02-18 16:28 | Diagnostic Imaging Report ---
EXAMINATION: Digital mammogram bilateral screening with CAD. INDICATION: Screening. COMPARISON: This study was compared to the prior exams of 11/01/2018, 10/30/2017, and 10/24/2016. PERSONAL HISTORY: At this time, there are no current complaints. FINDINGS: The fibroglandular tissue in both breasts is heterogeneously dense. This does limit the sensitivity of this exam. Overall, there does not appear to have been any significant change when compared to the prior study. No primary or secondary sign of malignancy is noted. IMPRESSION: There is no radiographic evidence for malignancy. ACR BI-RADS Category 1: Negative. Result letter will be mailed to the patient. Note: At least 10% of breast cancer is not imaged by mammography. Dictated on workstation # [id number]
== END ==
LOC: RAD 07:30
PROVIDERS: ATTEND Obstetrics & Gynecology
DX: Z12.31 Encounter for screening mammogram for malignant neoplasm of breast (principal)
CPT/HCPCS: 77063; 77067

== ENCOUNTER 2020-07-17 15:27 | Inpatient (IN) | payer OTHER ==
[~2020-07-17] VITALS: Ht 172.7 cm; Wt 124.4 kg
[~2020-07-17 15:27] MED LIST changes: -PANT40TA3 PO; +PANT40TA52 PO
--- NOTE | 2020-07-17 15:51 | ED General ---
General Stated Complaint: FEVER,COUGH,BODY ACHES/ COVID POSITIVE Source of Information: Patient Exam Limitations: No Limitations History of Present Illness Date Seen by Provider: Jul 17, 2020 Time Seen by Provider: 15:49 Initial Comments To ER with reports of fever cough body aches. She tested positive for Covid on Sunday, 6 days ago. Her symptoms began the day before (7 days ago). She has been checking her SPO2 at home and found it to be ranging from 88 to 92%. She has hypertension and obesity. No pre-existing lung diseases. Timing/Duration: 1 Week Severity: Moderate Associated Systoms: Weakness Allergies and Home Medications Allergies Coded Allergies: erythromycin base (Unverified Allergy, Mild, ABD PAIN, 10/24/18) Uncoded Allergies: OPIATES (Allergy, Mild, 07/20/09) Home Medications Cholecalciferol (Vitamin D3) 5,000 Unit Capsule, 5,000 UNIT PO DAILY, (Reported) Estradiol 1 Mg Tablet, 1 MG PO DAILY, (Reported) LAST FILLED #30 04-16-18 Levothyroxine Sodium 50 Mcg Tablet, 50 MCG PO DAILY, (Reported) Pantoprazole Sodium 40 Mg Tablet.dr, 40 MG PO DAILY, (Reported) Sucralfate 1 Gm Tablet, 1 GM PO QID Prescribed by: MICHELL DALAL on 11/01/18 1336 Vitamin B Complex 1 Each Tablet, 1 TAB PO DAILY, (Reported) Patient Home Medication List Home Medication List Reviewed: Yes Review of Systems Review of Systems Constitutional: see HPI, chills, fever, weakness EENTM: see HPI Respiratory: see HPI, cough Cardiovascular: no symptoms reported Genitourinary: no symptoms reported Musculoskeletal: no symptoms reported Skin: no symptoms reported Psychiatric/Neurological: No Symptoms Reported Hematologic/Lymphatic: No Symptoms Reported Past Ufjninm-Mjwbjy-Vnqimq Hx Patient Social History Alcohol Beverage of Choice: Vodka 2nd Hand Smoke Exposure: Yes Recent Hopitalizations: No Immunizations Up To Date Tetanus Booster (TDap): Less than 5yrs Date of Influenza Vaccine: Apr 29, 2018 Seasonal Allergies Seasonal Allergies: No Past Medical History Surgeries: Yes (BMT) Bladder Surgery, Section, Ear Surgery, Gallbladder, Hysterectomy, Oophorectomy, Thyroidectomy, Tonsillectomy, Tubal Ligation Respiratory: Yes Sleep Apnea Currently Using CPAP: Yes Cardiac: No Neurological: Yes Headaches /Migraines Reproductive Disorders: Yes 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 Sexually Transmitted Disease: No Genitourinary: Yes Kidney Infection, UTI-Chronic Gastrointestinal: Yes (FATTY LIVER) Gastroesophageal Reflux Musculoskeletal: Yes Back Injury, Chronic Back Pain Endocrine: Yes Hypothyroidsim HEENT: Yes (GLASSES) Loss of Vision: Bilateral Hearing Impairment: Denies Cancer: No Psychosocial: Yes Sleep Difficulties Integumentary: Yes (CHILDHOOD - GONE ) Eczema Blood Disorders: No Adverse Reaction/Blood Tranf: No (N/A) Family Medical History Arthritis Asthma Cardiovascular disease Cataracts Colon cancer Completed stroke Dementia Glaucoma Hypertension Myocardial infarction Osteoporosis Psychosocial problem Respiratory disorder Visual disorder CAD Under 55 Years Old Physical Exam Vital Signs Vital Signs - First Documented 07/17/20 15:40 Temp 37.8 Pulse 107 Resp 15 B/P (MAP) 156/89 (111) Pulse Ox 94 O2 Delivery Room Air Capillary Refill : Height, Weight, BMI Height: 5'8.00" Weight: 275lbs. 0.0oz. 124.345979xs; 42.6 BMI Method:Stated General Appearance: No Apparent Distress, WD/WN, Other (On arrival she is 93% on room air.) Eyes: Bilateral Eye Normal Inspection, Bilateral Eye PERRL, Bilateral Eye EOMI Neck: Full Range of Motion, Normal Inspection Respiratory: No Accessory Muscle Use, No Respiratory Distress Cardiovascular: Regular Rate, Rhythm, Normal Peripheral Pulses Gastrointestinal: Normal Bowel Sounds, Non Tender, Soft Extremity: Normal Capillary Refill, Normal Inspection Neurologic/Psychiatric: Alert, Oriented x3 Skin: Normal Color, Warm/Dry Progress/Results/Core Measures Suspected Sepsis SIRS Temperature: Pulse: Respiratory Rate: Laboratory Tests 07/17/20 15:50: White Blood Count 3.5L Blood Pressure / Mean: Laboratory Tests 07/17/20 15:50: Creatinine 0.74, Platelet Count 241, Total Bilirubin 0.3 Results/Orders Lab Results Laboratory Tests Test 07/17/20 15:50 Range/Units White Blood Count 3.5 L 4.3-11.0 10^3/uL Red Blood Count 4.69 3.80-5.11 10^6/uL Hemoglobin 11.3 L 11.5-16.0 g/dL Hematocrit 36 35-52 % Mean Corpuscular Volume 77 L 80-99 fL Mean Corpuscular Hemoglobin 24 L 25-34 pg Mean Corpuscular Hemoglobin Concent 32 32-36 g/dL Red Cell Distribution Width 14.9 H 10.0-14.5 % Platelet Count 241 130-400 10^3/uL Mean Platelet Volume 9.7 9.0-12.2 fL Immature Granulocyte % (Auto) 0 % Neutrophils (%) (Auto) 61 42-75 % Lymphocytes (%) (Auto) 28 12-44 % Monocytes (%) (Auto) 11 0-12 % Eosinophils (%) (Auto) 0 0-10 % Basophils (%) (Auto) 0 0-10 % Neutrophils # (Auto) 2.1 1.8-7.8 X 10^3 Lymphocytes # (Auto) 1.0 1.0-4.0 X 10^3 Monocytes # (Auto) 0.4 0.0-1.0 X 10^3 Eosinophils # (Auto) 0.0 0.0-0.3 10^3/uL Basophils # (Auto) 0.0 0.0-0.1 10^3/uL Immature Granulocyte # (Auto) 0.0 0.0-0.1 10^3/uL D-Dimer 1.11 H 0.00-0.49 UG/ML Sodium Level 139 135-145 MMOL/L Potassium Level 3.1 L 3.6-5.0 MMOL/L Chloride Level 103 98-107 MMOL/L Carbon Dioxide Level 24 21-32 MMOL/L Anion Gap 12 5-14 MMOL/L Blood Urea Nitrogen 5 L 7-18 MG/DL Creatinine 0.74 0.60-1.30 MG/DL Estimat Glomerular Filtration Rate > 60 BUN/Creatinine Ratio 7 Glucose Level 134 H 70-105 MG/DL Calcium Level 8.8 8.5-10.1 MG/DL Corrected Calcium 8.9 8.5-10.1 MG/DL Total Bilirubin 0.3 0.1-1.0 MG/DL Aspartate Amino Transf (AST/SGOT) 27 5-34 U/L Alanine Aminotransferase (ALT/SGPT) 31 0-55 U/L Alkaline Phosphatase 152 H 40-136 U/L C-Reactive Protein High Sensitivity 1.81 H 0.00-0.50 MG/DL Total Protein 7.3 6.4-8.2 GM/DL Albumin 3.9 3.2-4.5 GM/DL My Orders Orders - 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,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 With Automated Diff (07/17/20 15:48) Comprehensive Metabolic Panel (07/17/20 15:48) Hs C Reactive Protein (07/17/20 15:48) Fibrin Degradation Products (07/17/20 15:48) Chest 1 View, Ap/Pa Only (07/17/20 15:48) Ed Iv/Invasive Line Start (07/17/20 15:48) Ct Angio Chest W (07/17/20 16:25) Iohexol Injection (Omnipaque 350 Mg/Ml 1 (07/17/20 17:00) Received Contrast (Hold Metformin- Contr (07/17/20 17:00) Ns (Ivpb) (Sodium Chloride 0.9% Ivpb Bag (07/17/20 17:00) Procalcitonin (Pct) (07/17/20 17:17) Medications Given in ED Current Medications Medications Dose Ordered Sig/Garrett Route Start Time Stop Time Status Last Admin Dose Admin Iohexol 100 ml ONCE ONCE IV 07/17/20 17:00 07/17/20 17:01 DC 07/17/20 16:57 81 ML Sodium Chloride 100 ml ONCE ONCE IV 07/17/20 17:00 07/17/20 17:01 DC 07/17/20 16:57 80 ML Vital Signs/I&O 07/17/20 15:40 Temp 37.8 Pulse 107 Resp 15 B/P (MAP) 156/89 (111) Pulse Ox 94 O2 Delivery Room Air Capillary Refill : Diagnostic Imaging Diagonstic Imaging: Xray, CT Plain Films/CT/US/NM/MRI: chest Comments NAME: EBONY LIGHT [facility] REC#: [id number] PT STATUS: REG ER : 1970 PHYSICIAN: VARGAS WREN [employer] WORK[employer] ADMIT DATE: 07/17/20/ER Draft Date of Exam:07/17/20 CT ANGIO CHEST W PROCEDURE: CT angiography of the chest with contrast. TECHNIQUE: Multiple contiguous axial images were obtained through the chest after uneventful bolus administration of intravenous contrast. 3D reconstructed CTA MIP acquisitions were also performed. Auto Exposure Controls were utilized during the CT exam to meet ALARA standards for radiation dose reduction. INDICATION: Elevated d-dimer. COVID positive. Cough. Fever. COMPARISON: Chest radiograph 07/17/2020. CTA chest 12/02/2018. FINDINGS: Examination limited by contrast timing. No large or central pulmonary emboli. Normal heart size. No pericardial effusion. No mediastinal, hilar or axillary lymphadenopathy. Multiple airspace opacities scattered throughout both lungs. No pleural effusion or pneumothorax. No acute osseous finding. Cholecystectomy. IMPRESSION: 1. No large or central pulmonary emboli. 2. Multifocal airspace opacities scattered throughout both lungs compatible with reported COVID diagnosis. Dictated on workstation # [id number] Dict: 07/17/20 1653 Trans: 07/17/20 1702 PJ [id number] Interpreted by: ERIKA MILLIGAN MD Electronically signed by: Departure Communication (Admissions) stats have Been as low as 92% while at rest here. I am little hesitant to send her home given the hypertension and obesity and that she is only on day 7 of illness. Will admit and see how she does. I did discuss with her convalescent plasma and remdesivir experimental in nature and she would like to proceed with using these. Impression Primary Impression: COVID-19 Disposition: 09 ADMITTED INPATIENT Condition: Stable Admissions Decision to Admit Reason: Admit from ER (General) Decision to Admit/Date: Jul 17, 2020 Time/Decision to Admit Time: 17:34 Departure-Patient Inst. Referrals: NO,LOCAL PHYSICIAN (PCP/Family) Primary Care Physician VARGAS WREN APRN Jul 17, 2020 15:51
[2020-07-17 16:10] LABS: BASOPHILS % (AUTO) 0 % (0-10); EOSINOPHILS % (AUTO) 0 % (0-10); HEMATOCRIT 36 % (35-52); HEMOGLOBIN 11.3 g/dL (11.5-16.0); LYMPHOCYTES % (AUTO) 28 % (12-44); MEAN CORPUSCULAR HEMOGLOBIN 24 pg (25-34); MEAN CORPUSCULAR HGB CONC 32 g/dL (32-36); MEAN CORPUSCULAR VOLUME 77 fL (80-99); MEAN PLATELET VOLUME 9.7 fL (9.0-12.2); MONOCYTES # (AUTO) 0.4 X 10^3 (0.0-1.0); MONOCYTES % (AUTO) 11 % (0-12); NEUTROPHILS # (AUTO) 2.1 X 10^3 (1.8-7.8); NEUTROPHILS % (AUTO) 61 % (42-75); PLATELET COUNT 241 10^3/uL (130-400); WHITE BLOOD COUNT 3.5 10^3/uL (4.3-11.0)
[2020-07-17 16:21] LABS: ALBUMIN 3.9 GM/DL (3.2-4.5); CHLORIDE 103 MMOL/L (98-107); POTASSIUM 3.1 MMOL/L (3.6-5.0); SODIUM 139 MMOL/L (135-145)
[2020-07-17 16:22] LABS: CALCIUM 8.8 MG/DL (8.5-10.1)
[2020-07-17 16:24] LABS: GLUCOSE 134 MG/DL (70-105); TOTAL PROTEIN 7.3 GM/DL (6.4-8.2)
[2020-07-17 16:25] LABS: BILIRUBIN,TOTAL 0.3 MG/DL (0.1-1.0); CARBON DIOXIDE 24 MMOL/L (21-32)
[2020-07-17 16:27] LABS: ALKALINE PHOSPHATASE 152 U/L (40-136); CREATININE SERUM 0.74 MG/DL (0.60-1.30); GFR ESTIMATED > 60
[2020-07-17 16:28] LABS: BUN/CREATININE RATIO 7
[2020-07-17 16:30] LABS: ALANINE AMINOTRANSFERASE 31 U/L (0-55)
--- NOTE | 2020-07-17 16:42 | Diagnostic Imaging Report ---
EXAMINATION: Chest radiograph, portable AP view. DATE: 07/17/2020 4:31 PM INDICATION: 50-year-old female, cough and shortness of breath. Patient is Covid positive. COMPARISON: March 07, 2019. FINDINGS: There is nonspecific opacification in the left lower lung zone which is fairly linear. There are streaky opacities in the right lung base. Heart size and mediastinal contours are unchanged. There is no identified pneumothorax. There is no large pleural effusion. IMPRESSION: Nonspecific streaky opacities in the lung bases which may relate to infiltrate and/or atelectasis. Dictated by: Dictated on workstation # [id number]
[2020-07-17] MEDS ORDERED: IOHEXOL 350 MG/ML 100 ML (OMNIPAQUE 350) VIAL IV ONE (17:00)
[2020-07-17] MEDS ORDERED: HOLD METFORMIN - RECEIVED CONTRAST 20 ML VIAL IV SCH (17:00)
[2020-07-17] MEDS ORDERED: NS 100 ML (IVPB) BAG IV ONE (17:00)
--- NOTE | 2020-07-17 17:03 | Diagnostic Imaging Report ---
PROCEDURE: CT angiography of the chest with contrast. TECHNIQUE: Multiple contiguous axial images were obtained through the chest after uneventful bolus administration of intravenous contrast. 3D reconstructed CTA MIP acquisitions were also performed. Auto Exposure Controls were utilized during the CT exam to meet ALARA standards for radiation dose reduction. INDICATION: Elevated d-dimer. COVID positive. Cough. Fever. COMPARISON: Chest radiograph 07/17/2020. CTA chest 12/02/2018. FINDINGS: Examination limited by contrast timing. No large or central pulmonary emboli. Normal heart size. No pericardial effusion. No mediastinal, hilar or axillary lymphadenopathy. Multiple airspace opacities scattered throughout both lungs. No pleural effusion or pneumothorax. No acute osseous finding. Cholecystectomy. IMPRESSION: 1. No large or central pulmonary emboli. 2. Multifocal airspace opacities scattered throughout both lungs compatible with reported COVID diagnosis. Dictated by: Dictated on workstation # [id number]
--- NOTE | 2020-07-17 19:07 | NUR ---
ATTEMPTED TO CALL FOR REPORT AT THIS TIME. NO ANSWER.
--- NOTE | 2020-07-17 19:26 | NUR ---
ATTEMPTED TO CALL AND GIVE REPORT AT THIS TIME. NO ANSWER. [phone]
--- NOTE | 2020-07-17 19:30 | NUR ---
ATTEMPTED TO CALL AND GIVEN REPORT AT THIS TIME. NO ANSWER.
--- NOTE | 2020-07-17 19:35 | NUR ---
ATTEMPTED TO GIVE REPORT AT THIS TIME. NO ANSWER.
--- NOTE | 2020-07-17 19:55 | NUR ---
EBONY LIGHT admitted to room 425-1, with an admitting diagnosis of COVID19, on 07/17/20 from ED via wheelchair, accompanied by staff.EBONY LIGHT introduced to surroundings, call light, bed controls, phone, TV, temperature control, lights, meal times, smoking policy, visitor policy, side rail policy, bathrooms and showers. Patient Rights given to patient in the handbook. EOBNY LIGHT verbalizes understanding that [facility] is not responsible for the loss or damage to any personal effects or valuables that are kept in the patients posession during their hospitalization. EBONY LIGHT verbalizes understanding of Interdisciplinary Patient Education. Patient and/or family were informed about the Rapid Response Team and its purpose.
[2020-07-17 20:13] VITALS: BP 147/81
[2020-07-17] MEDS ORDERED: ACETAMINOPHEN 325 MG TABLET PO PRN ×2 (20:45)
[2020-07-17] MEDS ORDERED: ONDANSETRON 4 MG/2 ML (SDV) Z0FRAN IV PRN ×2 (20:45)
[2020-07-17] MEDS ORDERED: diphenhydrAMINE 25 MG TAB (BENADRYL) PO PRN (20:45)
[2020-07-17] MEDS ORDERED: MELATONIN 3 MG TABLET PO PRN (20:45)
[2020-07-17] MEDS ORDERED: ONDANSETRON 4 MG (ZOFRAN) ORAL DISSOLVE TAB PO PRN (20:45)
[2020-07-17] MEDS ORDERED: polyethylene glycoL POWDER 17 GM (MIRALAX) PACK PO PRN (20:45)
[2020-07-17] MEDS ORDERED: CATHETER FLUSH 10 ML SYR IV PRN (20:45)
[2020-07-17] MEDS ORDERED: ANTACID SUSP 30 ML UDC (MYLANTA) PO PRN (20:45)
[2020-07-17] MEDS ORDERED: BENZ-36 PO (20:46)
[2020-07-17] MEDS ORDERED: ALBUTEROL 90 MCG INH (20:46)
[2020-07-17] MEDS ORDERED: DEXA6TAB PO (20:46)
[2020-07-17] MEDS ORDERED: dexAMETHasone 6 MG TAB (DECADRON) PO SCH (21:00)
[2020-07-17] MEDS: DOCUSATE SODIUM 100 MG (COLACE) CAP PO SCH (21:58)
[2020-07-17] MEDS: ENOXAPARIN 40 MG/0.4 ML (LOVENOX) SYR SC SCH (21:58)
[2020-07-17] MEDS: SENNOSIDES 8.6 MG (SENOKOT) TAB PO SCH (21:58)
[2020-07-17] MEDS: CATHETER FLUSH 10 ML SYR IV SCH (22:35)
[2020-07-17 23:36] VITALS: BP 134/73
[2020-07-18 04:29] VITALS: BP 145/68
[2020-07-18 06:04] LABS: BASOPHILS % (AUTO) 0 % (0-10); EOSINOPHILS % (AUTO) 0 % (0-10); HEMATOCRIT 36 % (35-52); HEMOGLOBIN 10.9 g/dL (11.5-16.0); LYMPHOCYTES # (AUTO) 0.7 10^3/uL (1.0-4.0); LYMPHOCYTES % (AUTO) 33 % (12-44); MEAN CORPUSCULAR HEMOGLOBIN 24 pg (25-34); MEAN CORPUSCULAR HGB CONC 31 g/dL (32-36); MEAN CORPUSCULAR VOLUME 78 fL (80-99); MEAN PLATELET VOLUME 9.8 fL (9.0-12.2); MONOCYTES # (AUTO) 0.1 10^3/uL (0.0-1.0); MONOCYTES % (AUTO) 5 % (0-12); NEUTROPHILS # (AUTO) 1.3 10^3/uL (1.8-7.8); NEUTROPHILS % (AUTO) 61 % (42-75); PLATELET COUNT 237 10^3/uL (130-400); WHITE BLOOD COUNT 2.1 10^3/uL (4.3-11.0)
[2020-07-18] MEDS: CATHETER FLUSH 10 ML SYR IV SCH ×3 (06:05→22:00)
[2020-07-18 06:14] LABS: ALBUMIN 3.7 GM/DL (3.2-4.5)
[2020-07-18 06:15] LABS: CHLORIDE 105 MMOL/L (98-107); POTASSIUM 3.2 MMOL/L (3.6-5.0); SODIUM 139 MMOL/L (135-145)
[2020-07-18] MEDS: LEVOTHYROXINE 50 MCG (LEVOTHROID) TAB PO SCH (06:15)
[2020-07-18] MEDS: dexAMETHasone 6 MG TAB (DECADRON) PO SCH (06:15)
[2020-07-18] MEDS: PANTOPRAZOLE 40 MG (PROTONIX) TAB PO SCH (06:15)
[2020-07-18 06:16] LABS: CALCIUM 9.3 MG/DL (8.5-10.1)
[2020-07-18 06:17] LABS: GLUCOSE 175 MG/DL (70-105); TOTAL PROTEIN 7.3 GM/DL (6.4-8.2)
[2020-07-18 06:18] LABS: CARBON DIOXIDE 22 MMOL/L (21-32)
[2020-07-18 06:19] LABS: BILIRUBIN,TOTAL 0.2 MG/DL (0.1-1.0)
[2020-07-18 06:20] LABS: ALKALINE PHOSPHATASE 146 U/L (40-136)
[2020-07-18 06:21] LABS: GFR ESTIMATED > 60
[2020-07-18 06:22] LABS: BUN/CREATININE RATIO 10
[2020-07-18 06:24] LABS: ALANINE AMINOTRANSFERASE 32 U/L (0-55)
[2020-07-18 08:00] VITALS: BP 130/68
--- NOTE | 2020-07-18 08:15 | History & Physical-Hospitalist ---
History of Present Illness HPI/Chief Complaint CC: Hypoxia HPI: This is a 50yoWF clinic patient of Dr Salvador who presented to the ER with worsened dyspnea and hypoxia. COVID-19 dx 7 days ago. 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 Pt had no evidence of bacterial PNA. No pain reported. Source: patient Exam Limitations: no limitations Date Seen 07/18/20 Time Seen by a Provider: 12:00 Attending Physician Brigitte Thompson DO PCP No,Local Physician Referring Physician Date of Admission Jul 17, 2020 at 17:30 Home Medications & Allergies Home Medications Reviewed patient Home Medication Reconciliation performed by pharmacy medication reconciliations biological science technician and/or nursing. Patients Allergies have been reviewed. Allergies Allergies Coded Allergies erythromycin base (Unverified Allergy, Mild, ABD PAIN, 10/24/18) Uncoded Allergies OPIATES ( Allergy, Mild, 07/20/09) Past Ylvzqws-Jevnjm-Ubmfte Hx Past Med/Social Hx: Reviewed Nursing Past Med/Soc Hx, Reviewed and Corrections made Patient Social History Marrital Status: Employed/Student: employed Alcohol Use: Denies Use Alcohol Beverage of Choice: Vodka Recreational Drug Use: No Smoking Status: Never a Smoker 2nd Hand Smoke Exposure: Yes Recent Foreign Travel: No Contact w/other who traveled: No Recent Hopitalizations: No Recent Infectious Disease Expo: No Immunizations Up To Date Tetanus Booster (TDap): Less than 5yrs Date of Influenza Vaccine: May 19, 2020 Seasonal Allergies Seasonal Allergies: No Past Medical History Surgeries: Bladder Surgery, Section, Ear Surgery, Gallbladder, Hysterectomy, Oophorectomy, Thyroidectomy, Tonsillectomy, Tubal Ligation Currently Using CPAP: Yes Neurological: Headaches /Migraines Reproductive: Yes Sexually Transmitted Disease: No Female Reproductive Disorders: Denies Hysterectomy Genitourinary: Kidney Infection, UTI-Chronic Gastrointestinal: Gastroesophageal Reflux Musculoskeletal: Back Injury, Chronic Back Pain Endocrine: Hypothyroidsim Loss of Vision: Bilateral Hearing Impairment: Denies Psychosocial: Sleep Difficulties Skin/Integumentary: Eczema History of Blood Disorders: No Adverse Reaction to Blood Schroeder: No (N/A) Family History Arthritis Asthma Cardiovascular disease Cataracts Colon cancer Completed stroke Dementia Glaucoma Hypertension Myocardial infarction Osteoporosis Psychosocial problem Respiratory disorder Visual disorder CAD Under 55 Years Old Review of Systems Constitutional: see HPI Respiratory: cough, dyspnea on exertion, short of breath, wheezing Physical Exam Physical Exam Vital Signs Vital Signs - First Documented 07/17/20 15:40 Temp 37.8 Pulse 107 Resp 15 B/P (MAP) 156/89 (111) Pulse Ox 94 O2 Delivery Room Air Capillary Refill : Less Than 3 Seconds Height, Weight, BMI Height: 5'8.00" Weight: 275lbs. 0.0oz. 124.720370hj; 41.70 BMI Method:Stated General Appearance: No Apparent Distress Eyes: Right Eye Normal Inspection, Right Eye PERRL HEENT: PERRL/EOMI, TMs Normal, Normal ENT Inspection, Pharynx Normal, Moist Mucous Membranes Neck: Full Range of Motion, Normal Inspection, Non Tender Respiratory: Chest Non Tender, No Accessory Muscle Use, No Respiratory Distress, Decreased Breath Sounds Cardiovascular: Regular Rate, Rhythm, No Edema, No Gallop, No JVD, No Murmur, Normal Peripheral Pulses Gastrointestinal: Normal Bowel Sounds, No Organomegaly, No Pulsatile Mass, Non Tender, Soft Back: Normal Inspection, No CVA Tenderness, No Vertebral Tenderness Extremity: Normal Capillary Refill, Normal Inspection, Normal Range of Motion, Non Tender, No Calf Tenderness, No Pedal Edema Neurologic/Psychiatric: Alert, Oriented x3, No Motor/Sensory Deficits, Normal Mood/Affect Skin: Normal Color, Warm/Dry Lymphatic: No Adenopathy Results Results/Procedures Labs Laboratory Tests 07/17/20 15:50 07/18/20 05:43 Patient resulted labs reviewed. Assessment/Plan Admission Diagnosis Assessment: COVID-19 PNA Hypoxia Obesity Hypothyroidism Suspicion for ESSENCE Plan: O2 Antiviral Monitor closely Admission Status: Inpatient Order (span 2 midnights) Reason for Inpatient Admission: COVID 19 hypoxia Diagnosis/Problems Diagnosis/Problems (1) COVID-19 Status: Acute Clinical Quality Measures DVT/VTE Risk/Contraindication: Risk Factor Score Per Nursin RFS Level Per Nursing on Admit: 3=High BRIGITTE THOMPSON DO Jul 18, 2020 08:15
[2020-07-18] MEDS ORDERED: KCL 20 MEQ TAB (K-DUR) PO ONE (08:30)
[2020-07-18] MEDS: ESTRADIOL 1 MG TAB (ESTRACE) PO SCH (08:49)
[2020-07-18] MEDS: ENOXAPARIN 40 MG/0.4 ML (LOVENOX) SYR SC SCH ×2 (08:49→20:55)
[2020-07-18] MEDS: SENNOSIDES 8.6 MG (SENOKOT) TAB PO SCH ×2 (08:52→20:55)
[2020-07-18] MEDS: DOCUSATE SODIUM 100 MG (COLACE) CAP PO SCH ×2 (08:52→20:55)
[2020-07-18] MEDS ORDERED: REMDESIVIR INJ 200 MG in NS (IVPB) 210 ML IV ONE (09:00)
[2020-07-18] MEDS ORDERED: PHARMACY TO DOSE SQ SCH (09:00)
[2020-07-18 12:00] VITALS: BP 176/81
[2020-07-18 15:17] VITALS: BP 144/68
[2020-07-18 15:21] VITALS: BP 175/79
[2020-07-18 19:40] VITALS: BP 146/77
[2020-07-18] MEDS ORDERED: BENZONATATE 100 MG (TESSALON) CAPSULE PO ONE (20:54)
[2020-07-18] MEDS: BENZONATATE 100 MG (TESSALON) CAPSULE PO SCH (20:57)
[2020-07-19] VITALS: BP 129/69
[2020-07-19 04:00] VITALS: BP 130/71
[2020-07-19] MEDS: CATHETER FLUSH 10 ML SYR IV SCH ×3 (05:28→22:47)
[2020-07-19 05:31] LABS: BASOPHILS % (AUTO) 0 % (0-10); EOSINOPHILS % (AUTO) 0 % (0-10); HEMATOCRIT 35 % (35-52); HEMOGLOBIN 10.6 g/dL (11.5-16.0); LYMPHOCYTES # (AUTO) 1.6 10^3/uL (1.0-4.0); LYMPHOCYTES % (AUTO) 14 % (12-44); MEAN CORPUSCULAR HEMOGLOBIN 24 pg (25-34); MEAN CORPUSCULAR HGB CONC 31 g/dL (32-36); MEAN CORPUSCULAR VOLUME 78 fL (80-99); MEAN PLATELET VOLUME 10.1 fL (9.0-12.2); MONOCYTES % (AUTO) 8 % (0-12); NEUTROPHILS # (AUTO) 9.1 10^3/uL (1.8-7.8); NEUTROPHILS % (AUTO) 77 % (42-75); PLATELET COUNT 280 10^3/uL (130-400); WHITE BLOOD COUNT 11.8 10^3/uL (4.3-11.0)
[2020-07-19 06:01] LABS: ALANINE AMINOTRANSFERASE 25 U/L (0-55); ALBUMIN 3.4 GM/DL (3.2-4.5); ALKALINE PHOSPHATASE 143 U/L (40-136); BILIRUBIN,TOTAL 0.1 MG/DL (0.1-1.0); BUN/CREATININE RATIO 23; CALCIUM 8.9 MG/DL (8.5-10.1); CARBON DIOXIDE 26 MMOL/L (21-32); CHLORIDE 109 MMOL/L (98-107); CREATININE SERUM 0.74 MG/DL (0.60-1.30); GFR ESTIMATED > 60; GLUCOSE 139 MG/DL (70-105); POTASSIUM 3.6 MMOL/L (3.6-5.0); SODIUM 142 MMOL/L (135-145); TOTAL PROTEIN 6.6 GM/DL (6.4-8.2)
[2020-07-19] MEDS: LEVOTHYROXINE 50 MCG (LEVOTHROID) TAB PO SCH (06:16)
[2020-07-19] MEDS: KCL 20 MEQ TAB (K-DUR) PO SCH (06:16)
[2020-07-19] MEDS: PANTOPRAZOLE 40 MG (PROTONIX) TAB PO SCH (06:16)
[2020-07-19] MEDS: dexAMETHasone 6 MG TAB (DECADRON) PO SCH (06:17)
--- NOTE | 2020-07-19 06:17 | Progress Note - Hospitalist ---
Subjective HPI/CC On Admission Date Seen by Provider: Jul 19, 2020 Time Seen by Provider: 09:30 CC: Hypoxia HPI: This is a 50yoWF clinic patient of Dr Salvadro who presented to the ER with worsened dyspnea and hypoxia. COVID-19 dx 7 days ago. 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 Pt had no evidence of bacterial PNA. No pain reported. Subjective/Events-last exam Pt remains on room air at 97% WBC 11.8 Remdesivir tolerated Overall appears to be improved but very fatigued and high-risk for decompensation Review of Systems Pulmonary: Dyspnea, Cough Objective Exam Vital Signs Vital Signs Date Time Temp Pulse Resp B/P (MAP) Pulse Ox O2 Delivery O2 Flow Rate FiO2 07/20/20 04:00 35.7 66 18 132/68 (89) 97 Room Air Capillary Refill : Less Than 3 Seconds General Appearance: No Apparent Distress, WD/WN, Chronically ill, Obese Respiratory: Chest Non Tender, Lungs Clear, No Accessory Muscle Use, No Respiratory Distress, Decreased Breath Sounds Cardiovascular: Regular Rate, Rhythm, No Edema, No Gallop, No JVD, No Murmur, Normal Peripheral Pulses Neurologic/Psychiatric: Alert, Oriented x3, No Motor/Sensory Deficits, Normal Mood/Affect Results/Procedures Lab Laboratory Tests 07/19/20 04:55 Patient resulted labs reviewed. Assessment/Plan Assessment and Plan Assess & Plan/Chief Complaint Assessment: COVID-19 PNA Hypoxia Obesity Hypothyroidism Suspicion for ESSENCE Plan: O2 Antiviral Monitor closely 07/19/20: Much improved status Increase activity Cough management Diagnosis/Problems Diagnosis/Problems (1) COVID-19 Status: Acute Clinical Quality Measures DVT/VTE Risk/Contraindication: Risk Factor Score Per Nursin RFS Level Per Nursing on Admit: 3=High DIAMOND TYLER DO Jul 19, 2020 06:17
[2020-07-19 08:30] VITALS: BP 130/74
[2020-07-19] MEDS: BENZONATATE 100 MG (TESSALON) CAPSULE PO SCH ×3 (08:33→20:53)
[2020-07-19] MEDS: ESTRADIOL 1 MG TAB (ESTRACE) PO SCH (08:33)
[2020-07-19] MEDS: ENOXAPARIN 40 MG/0.4 ML (LOVENOX) SYR SC SCH ×2 (08:34→20:53)
[2020-07-19] MEDS: REMDESIVIR INJ 100 MG in NS (IVPB) 230 ML IV SCH (09:08)
[2020-07-19] MEDS: SENNOSIDES 8.6 MG (SENOKOT) TAB PO SCH ×2 (09:20→20:53)
[2020-07-19] MEDS: DOCUSATE SODIUM 100 MG (COLACE) CAP PO SCH ×2 (09:20→20:53)
[2020-07-19 11:05] VITALS: BP 130/72
[2020-07-19] MEDS ORDERED: CHOL10007 PO (13:26)
[2020-07-19] MEDS ORDERED: PANT40TA52 PO (13:26)
--- NOTE | 2020-07-19 13:27 | NUR ---
I SPOKE WITH THE PATIENT ON THE ROOM PHONE, WENT THROUGH THE EXTERNAL MED HISTORY AND CALLED CASANDRA AYERS TO COMPLETE THIS MED REC. DEXAMETHASONE 6MG FILLED 07/13/2020 #10/DS BENZONATATE 100MG FILLED 07/13/2020 #DS PT STATES THAT SOMETIMES SHE FORGETS TO TAKE LEVOTHYROXINE, PROTONIX AND ESTRADIOL AND SHE ALSO GOT THEM FROM A DIFFERENT PHARMACY A WHILE BACK SO SHE HAD EXTRAS TO USE AND THAT'S WHY SHE HASN'T GOTTEN THESE FILLED RECENTLY. OTC: B COMPLEX VITAMIN D
[2020-07-19 16:00] VITALS: BP 132/74
[2020-07-19] MEDS ORDERED: NEO/POLY/BAC (NEOSPORIN) OINT 15 GM TUBE TOP PRN (18:30)
[2020-07-19 20:00] VITALS: BP 134/65
[2020-07-20] VITALS (8 sets, daily range): BP systolic 129–177; BP diastolic 65–83
--- NOTE | 2020-07-20 05:52 | Progress Note - Hospitalist ---
Subjective HPI/CC On Admission Date Seen by Provider: Jul 20, 2020 Time Seen by Provider: 10:00 CC: Hypoxia HPI: This is a 50yoWF clinic patient of Dr Salvador who presented to the ER with worsened dyspnea and hypoxia. COVID-19 dx 7 days ago. 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 Pt had no evidence of bacterial PNA. No pain reported. Subjective/Events-last exam Potassium 3.3 changed potassium to 20 mEq twice daily Room air at 97% Remdesivir tolerated DC planned for Sunday Review of Systems General: Fatigue, Malaise Pulmonary: Dyspnea, Cough Objective Exam Vital Signs Vital Signs Date Time Temp Pulse Resp B/P (MAP) Pulse Ox O2 Delivery O2 Flow Rate FiO2 07/20/20 19:03 36.5 71 18 147/65 (92) 96 Room Air 07/20/20 17:02 0.00 Capillary Refill : Less Than 3 Seconds General Appearance: No Apparent Distress, WD/WN Respiratory: Chest Non Tender, Lungs Clear, Normal Breath Sounds, No Accessory Muscle Use, No Respiratory Distress Cardiovascular: Regular Rate, Rhythm, No Edema, No Gallop, No JVD, No Murmur, Normal Peripheral Pulses Neurologic/Psychiatric: Alert, Oriented x3, No Motor/Sensory Deficits, Normal Mood/Affect Results/Procedures Lab Laboratory Tests 07/20/20 05:44 Patient resulted labs reviewed. Assessment/Plan Assessment and Plan Assess & Plan/Chief Complaint Assessment: COVID-19 PNA Hypoxia Obesity Hypothyroidism Suspicion for ESSENCE Plan: O2 Antiviral Monitor closely 07/19/20: Much improved status Increase activity Cough management 07/20/20: DC tomorrow Diagnosis/Problems Diagnosis/Problems (1) COVID-19 Status: Acute Clinical Quality Measures DVT/VTE Risk/Contraindication: Risk Factor Score Per Nursin RFS Level Per Nursing on Admit: 3=High DIAMOND TYLER DO Jul 20, 2020 05:52
[2020-07-20] MEDS: CATHETER FLUSH 10 ML SYR IV SCH ×3 (06:04→20:59)
[2020-07-20 06:17] LABS: BASOPHILS % (AUTO) 0 % (0-10); EOSINOPHILS % (AUTO) 0 % (0-10); HEMATOCRIT 35 % (35-52); HEMOGLOBIN 10.5 g/dL (11.5-16.0); LYMPHOCYTES # (AUTO) 1.6 10^3/uL (1.0-4.0); LYMPHOCYTES % (AUTO) 21 % (12-44); MEAN CORPUSCULAR HEMOGLOBIN 24 pg (25-34); MEAN CORPUSCULAR HGB CONC 30 g/dL (32-36); MEAN CORPUSCULAR VOLUME 79 fL (80-99); MEAN PLATELET VOLUME 10.6 fL (9.0-12.2); MONOCYTES # (AUTO) 0.6 10^3/uL (0.0-1.0); MONOCYTES % (AUTO) 7 % (0-12); NEUTROPHILS # (AUTO) 5.6 10^3/uL (1.8-7.8); NEUTROPHILS % (AUTO) 71 % (42-75); PLATELET COUNT 282 10^3/uL (130-400)
[2020-07-20] MEDS: KCL 20 MEQ TAB (K-DUR) PO SCH ×3 (06:27→20:57)
[2020-07-20] MEDS: dexAMETHasone 6 MG TAB (DECADRON) PO SCH (06:27)
[2020-07-20] MEDS: LEVOTHYROXINE 50 MCG (LEVOTHROID) TAB PO SCH (06:27)
[2020-07-20] MEDS: PANTOPRAZOLE 40 MG (PROTONIX) TAB PO SCH (06:27)
[2020-07-20 06:46] LABS: ALANINE AMINOTRANSFERASE 49 U/L (0-55); ALBUMIN 3.4 GM/DL (3.2-4.5); ALKALINE PHOSPHATASE 129 U/L (40-136); BILIRUBIN,TOTAL 0.1 MG/DL (0.1-1.0); BUN/CREATININE RATIO 24; CALCIUM 8.7 MG/DL (8.5-10.1); CARBON DIOXIDE 26 MMOL/L (21-32); CHLORIDE 108 MMOL/L (98-107); CREATININE SERUM 0.71 MG/DL (0.60-1.30); GFR ESTIMATED > 60; GLUCOSE 149 MG/DL (70-105); POTASSIUM 3.3 MMOL/L (3.6-5.0); SODIUM 140 MMOL/L (135-145); TOTAL PROTEIN 6.6 GM/DL (6.4-8.2)
[2020-07-20] MEDS: REMDESIVIR INJ 100 MG in NS (IVPB) 230 ML IV SCH (08:20)
[2020-07-20] MEDS: BENZONATATE 100 MG (TESSALON) CAPSULE PO SCH ×3 (08:21→20:58)
[2020-07-20] MEDS: ENOXAPARIN 40 MG/0.4 ML (LOVENOX) SYR SC SCH ×2 (08:21→20:57)
[2020-07-20] MEDS: ESTRADIOL 1 MG TAB (ESTRACE) PO SCH (08:21)
[2020-07-20] MEDS: DOCUSATE SODIUM 100 MG (COLACE) CAP PO SCH ×2 (09:00→20:58)
[2020-07-20] MEDS: SENNOSIDES 8.6 MG (SENOKOT) TAB PO SCH ×2 (09:00→20:58)
--- NOTE | 2020-07-20 17:03 | NUR ---
HOME OXYGEN STUDY PT WALKED IN ROOM AND DID NOT DESATURATE AT ANY TIME NO OXYGEN NEEDED AT THIS TIME
[2020-07-20] MEDS ORDERED: NS IV 500 ML 500 ML ONE (23:26)
[2020-07-21] VITALS: BP 135/68
[2020-07-21 01:54] VITALS: BP 146/77
[2020-07-21 03:41] VITALS: BP 134/65
[2020-07-21] MEDS: LEVOTHYROXINE 50 MCG (LEVOTHROID) TAB PO SCH (06:06)
[2020-07-21] MEDS: dexAMETHasone 6 MG TAB (DECADRON) PO SCH (06:06)
[2020-07-21] MEDS: CATHETER FLUSH 10 ML SYR IV SCH (06:07)
[2020-07-21] MEDS: PANTOPRAZOLE 40 MG (PROTONIX) TAB PO SCH (06:09)
[2020-07-21] MEDS: DOCUSATE SODIUM 100 MG (COLACE) CAP PO SCH (08:32)
[2020-07-21] MEDS: KCL 20 MEQ TAB (K-DUR) PO SCH (08:32)
[2020-07-21] MEDS: ESTRADIOL 1 MG TAB (ESTRACE) PO SCH (08:32)
[2020-07-21] MEDS: ENOXAPARIN 40 MG/0.4 ML (LOVENOX) SYR SC SCH (08:32)
[2020-07-21] MEDS: REMDESIVIR INJ 100 MG in NS (IVPB) 230 ML IV SCH (08:32)
[2020-07-21] MEDS: BENZONATATE 100 MG (TESSALON) CAPSULE PO SCH ×2 (08:32→12:54)
[2020-07-21] MEDS: SENNOSIDES 8.6 MG (SENOKOT) TAB PO SCH (08:32)
[2020-07-21 08:49] VITALS: BP 176/81
--- NOTE | 2020-07-21 11:31 | Discharge Summary ---
Discharge Summary Hospital Course Problems/Dx: (1) COVID-19 Status: Acute Hospital Course Date of Admission: Jul 17, 2020 at 17:30 Admission Diagnosis : Family Physician/Provider: No,Local Physician Date of Discharge: 07/21/20 Discharge Diagnosis: [ ] Hospital Course: [ ] Labs and Pending Lab Test: Home Meds Active Reported Vitamin D3 (Cholecalciferol (Vitamin D3)) 25 Mcg Capsule 25 Mcg PO DAILY [ALBUTEROL HFA 90mcg ] 90 Inh 2 Puff INH Q4H PRN Benzonatate 100 Mg Capsule 100 Mg PO TID Dexamethasone 6 Mg Tablet 6 Mg PO DAILY Pantoprazole Sodium 40 Mg Tablet.dr 40 Mg PO DAILY LAST FILLED 03/11/2020 #90 Vitamin B Complex 1 Each Tablet 1 Tab PO DAILY Estradiol Tablet (Estradiol) 1 Mg Tablet 1 Mg PO DAILY LAST FILLED 02/04/2020 #90 Levothyroxine Sodium 50 Mcg Tablet 50 Mcg PO DAILY LAST FILLED 02/04/2020 #90 Discharge Physical Examination Vital Signs Vital Signs Date Time Temp Pulse Resp B/P (MAP) Pulse Ox O2 Delivery O2 Flow Rate FiO2 07/21/20 08:49 36.3 70 18 176/81 (112) 98 Room Air 07/20/20 17:02 0.00 Allergies: Coded Allergies: erythromycin base (Unverified Allergy, Mild, ABD PAIN, 10/24/18) Uncoded Allergies: OPIATES (Allergy, Mild, 07/20/09) Discharge Summary Date of Admission Jul 17, 2020 at 17:30 Date of Discharge Discharge Date: Jul 21, 2020 Admission Diagnosis Assessment: COVID-19 PNA Hypoxia Obesity Hypothyroidism Suspicion for ESSENCE Plan: O2 Antiviral Monitor closely Discharge Diagnosis Assessment: COVID-19 PNA Hypoxia Obesity Hypothyroidism Suspicion for ESSENCE Plan: O2 Antiviral Monitor closely 07/19/20: Much improved status Increase activity Cough management 07/20/20: DC tomorrow (1) COVID-19 Status: Acute Clinical Quality Measures DVT/VTE Risk/Contraindication: Risk Factor Score Per Nursin RFS Level Per Nursing on Admit: 3=High DIAMOND TYLER DO Jul 21, 2020 11:31
== END 2020-07-21 15:00 | disposition home or self-care (01) | DRG 177 ==
LOC: EDUNIT# 15:27 → ER 15:30 → EDLOC 17:30 → 4TH 17:30
PROVIDERS: ADMIT Internal Medicine; ATTEND Internal Medicine
PROC: XW033E5 Introduction of Remdesivir Anti-infective into Peripheral Vein, Percutaneous Approach, New Technology Group 5 (ICD-10-PCS; principal; 2020-07-18)
PROC: XW13325 Transfusion of Convalescent Plasma (Nonautologous) into Peripheral Vein, Percutaneous Approach, New Technology Group 5 (ICD-10-PCS; 2020-07-20)
DX: U07.1 COVID-19 (principal); J12.89 Other viral pneumonia; Z68.41 Body mass index [BMI] 40.0-44.9, adult; R09.02 Hypoxemia; I10 Essential (primary) hypertension; E66.9 Obesity, unspecified; G47.33 Obstructive sleep apnea (adult) (pediatric); E89.0 Postprocedural hypothyroidism; K21.9 Gastro-esophageal reflux disease without esophagitis; M54.9 Dorsalgia, unspecified; Z88.1 Allergy status to other antibiotic agents; Z88.5 Allergy status to narcotic agent; Z79.899 Other long term (current) drug therapy; Z90.710 Acquired absence of both cervix and uterus; Z90.722 Acquired absence of ovaries, bilateral; Z90.89 Acquired absence of other organs; Z73.0 Burn-out
CPT/HCPCS: 36415; 71045; 71275; 80053; 84145; 85025; 85379; 86141; 86900; 86901; 94761

== ENCOUNTER → 2021-06-02 | Outpatient (CLI) | payer OTHER ==
[~2021-06-02] MED LIST changes: +ALBUTEROL 90 MCG INH; +BENZ-36 PO; +CHOL10007 PO; +DEXA6TAB PO
--- NOTE | 2021-06-02 10:21 | Diagnostic Imaging Report ---
INDICATION: Routine screening. COMPARISON is made with prior mammograms from 02/18/2020 and 11/01/2018. 2-D and 3-D bilateral screening mammography was performed with CAD. Both breasts are heterogeneously dense, limiting the sensitivity of mammography. The circumscribed benign nodule in the outer right breast is stable. No spiculated mass or malignant appearing microcalcifications are seen. The axillae are unremarkable. IMPRESSION: BI-RADS Category 2 No mammographic features suspicious for malignancy are identified. ACR BI-RADS Category 2: Benign findings. Result letter will be mailed to the patient. Note: At least 10% of breast cancer is not imaged by mammography. Dictated by: Dictated on workstation # [id number]
== END ==
LOC: RAD 07:30
PROVIDERS: ATTEND Family Medicine
DX: Z12.31 Encounter for screening mammogram for malignant neoplasm of breast (principal)
CPT/HCPCS: 77063; 77067

== ENCOUNTER → 2021-08-09 | Outpatient (CLI) | payer OTHER ==
[~2021-08-09] MED LIST changes: +CYCL10TA25 PO; -CYCL10TA9 PO; -PHEN30CA2 PO; +PHEN30CA21 PO
--- NOTE | 2021-08-09 08:35 | Diagnostic Imaging Report ---
Clinical indications: Patient with elevated liver enzymes. EXAM: Right upper quadrant ultrasound. COMPARISON: CT scan of abdomen and pelvis with contrast dated 09/08/2018. CT angiogram of the chest dated 07/17/2020. FINDINGS: Liver measures 18.9 cm. There are multiple hyperechoic areas throughout the liver with the appearance of possible, tail artifact. Otherwise liver has normal echogenicity and echotexture. The liver surface is smooth. There is no liver mass. The main portal vein demonstrates hepatopetal flow. There is no intrahepatic ductal dilation. Patient body habitus and bowel gas obscures portions of this exam. There is bowel gas obscuring pancreatic tail, body and portions of the pancreatic head. Visualized portions of the pancreatic head and neck shows no significant abnormality. The abdominal aorta and IVC shows no significant abnormality. The gallbladder is surgically absent. The common bile duct is obscured. The right kidney measures 10.1 cm in craniocaudal dimension. There is a 9 mm x 8 mm x 11 mm hyperechoic area involving the renal cortex and medullary area. This may represent a stone. There is no abdominal ascites. IMPRESSION: 1: Hepatomegaly. There are also multiple small hyperechoic areas scattered throughout the liver with the appearance of, tail artifact. Unknown if these areas represent small areas of air or calcifications. There are no calcifications seen on the prior CT scan involving the liver. CT scan of the abdomen and pelvis is suggested for further evaluation. 2: Otherwise there is no ultrasound evidence of acute abnormality on this exam. Gallbladder surgically absent. 3: Incomplete visualization of the pancreas. If there is clinical concern for pancreatitis, serology tests may better evaluate. 4: There is a hyperechoic area involving the right kidney near the cortex and medullary area. This may represent a focal area of fat versus calcification. This would also be better evaluated with CT scan. This area is not localized on the prior CT scan. Report was faxed to office of Dr. Salvador by liliane at 8:34am. Dictated by: Dictated on workstation # [id number]
== END ==
LOC: RAD 07:15
PROVIDERS: ATTEND Family Medicine
DX: R16.0 Hepatomegaly, not elsewhere classified (principal); R94.5 Abnormal results of liver function studies
CPT/HCPCS: 76705

== ENCOUNTER → 2021-08-17 | Outpatient (CLI) | payer OTHER ==
[~2021-08-17] MED LIST changes: +CATHETER FLUSH 10 ML SYR IV PRN; +HOLD METFORMIN - RECEIVED CONTRAST 20 ML VIAL IV SCH; +IOHEXOL 350 MG/ML 100 ML (OMNIPAQUE 350) VIAL IV ONE; +NS 100 ML (IVPB) BAG IV ONE
--- NOTE | 2021-08-17 08:54 | Diagnostic Imaging Report ---
PROCEDURE: CT abdomen and pelvis with and without contrast. TECHNIQUE: Precontrast acquisitions were acquired through the abdomen and pelvis. Multiple contiguous axial images were obtained through the abdomen and pelvis after the administration of intravenous contrast. Auto Exposure Controls were utilized during the CT exam to meet ALARA standards for radiation dose reduction. INDICATION: Abnormal recent hepatic ultrasound demonstrating multiple echogenic foci in the liver. The study is performed for further evaluation. Correlation is made with recent hepatic ultrasound from 08/09/2021. Imaging through lung bases does show some linear atelectasis or scarring in the right lower lobe. Liver demonstrates a homogeneous perfusion. There are no liver calcifications. No liver gas is identified. No discrete liver mass is identified. Gallbladder is surgically absent. No biliary ductal dilatation is seen. The pancreas and spleen are unremarkable. No adrenal mass is detected. Kidneys are unremarkable. Aorta is nonaneurysmal. Bowel loops are normal caliber. No obstruction is identified. No free fluid or fluid collection is identified. The bony structures are nonacute. IMPRESSION: Unremarkable pre and postcontrast CT of the abdomen and pelvis utilizing liver protocol. No liver mass or any other liver abnormality is identified. Dictated by: Dictated on workstation # [id number]
== END ==
LOC: RAD 07:45
PROVIDERS: ATTEND Family Medicine
DX: K76.9 Liver disease, unspecified (principal); N28.9 Disorder of kidney and ureter, unspecified
CPT/HCPCS: 74178

== ENCOUNTER → 2022-07-11 | Outpatient (CLI) | payer OTHER ==
[~2022-07-11] MED LIST changes: -CATHETER FLUSH 10 ML SYR IV PRN; -HOLD METFORMIN - RECEIVED CONTRAST 20 ML VIAL IV SCH; -IOHEXOL 350 MG/ML 100 ML (OMNIPAQUE 350) VIAL IV ONE; -NS 100 ML (IVPB) BAG IV ONE
--- NOTE | 2022-07-11 15:35 | Diagnostic Imaging Report ---
INDICATION: Routine screening. COMPARISON: 06/02/2021 and 02/18/2020. TECHNIQUE: 2D and 3D bilateral screening mammography was performed with CAD. FINDINGS: Both breasts are heterogeneously dense, limiting the sensitivity of mammography. The circumscribed nodule in the outer right breast is stable. No new mass or malignant-appearing microcalcifications are seen. The axillae are unremarkable. IMPRESSION: No mammographic features suspicious for malignancy are identified. ACR BI-RADS Category 2: Benign findings. Result letter will be mailed to the patient. Note: At least 10% of breast cancer is not imaged by mammography. Dictated by: Dictated on workstation # [id number]
== END ==
LOC: RAD 07:30
PROVIDERS: ATTEND Family Medicine
DX: Z12.31 Encounter for screening mammogram for malignant neoplasm of breast (principal)
CPT/HCPCS: 77063; 77067

== ENCOUNTER 2022-07-19 09:30 | Outpatient (CLI) | payer OTHER ==
[~2022-07-19] VITALS: Ht 172.7 cm; Wt 138.3 kg
[2022-07-19] MEDS ORDERED: HYOS-20 PO (11:16)
[2022-07-19] MEDS ORDERED: KETO10TA PO (11:16)
[2022-07-19] MEDS ORDERED: RIZA10TA94 PO (11:16)
== END 2022-07-19 11:17 ==
LOC: PREOP 09:30
PROVIDERS: ATTEND Surgery
DX: Z01.818 Encounter for other preprocedural examination (principal)

== ENCOUNTER 2022-07-28 08:09 | Day surgery (SDC) | payer OTHER ==
--- NOTE | 2022-07-19 07:09 | HISTORY AND PHYSICAL ---
DATE OF SERVICE: 07/28/2022 COLONOSCOPY HISTORY AND PHYSICAL HISTORY OF PRESENT ILLNESS: The patient is a 52-year-old white female referred by Dr. Salvador for screening colonoscopy. She last underwent colonoscopy 6-1/2 years ago, which was unremarkable. She is deemed to be of higher than average risk because she has a grandmother, who was diagnosed with colon cancer in her early 60s. She does report constipation that is punctuated by bouts of diarrhea. She denies bright red blood per rectum, melena or change in weight. PAST MEDICAL HISTORY: Significant for hypothyroidism, on replacement, obesity, plantar fasciitis. PAST SURGICAL HISTORY: Significant for a liver biopsy, which confirmed fatty liver disease without reported evidence for cirrhosis per the patient and had cholecystectomy in 2018, laparoscopically. SOCIAL HISTORY: She is employed with no past, drinking or smoking history and is with children. REVIEW OF SYSTEMS: CONSTITUTIONAL: Denies night sweats, chills, fever, change in weight. GASTROINTESTINAL: As noted in the HPI. PULMONARY: Denies cough, wheezing or shortness of breath. CARDIOVASCULAR: Denies chest pain, orthopnea, PND or dyspnea. PHYSICAL EXAMINATION: GENERAL: Reveals a pleasant white female, who appeared to be in no acute distress. VITAL SIGNS: Blood pressure 120/78. HEENT: Unremarkable. Sclerae nonicteric. CHEST: Clear. CARDIAC: Reveals a regular rate and rhythm without murmur, S3, or S4. ABDOMEN: Soft, supple without mass or organomegaly. She has some right lower and right upper quadrant discomfort to palpation without rebound or guarding. No mass or organomegaly noted. No bruits appreciated. Bowel sounds positive. EXTREMITIES: Reveal no cyanosis, clubbing or edema. ASSESSMENT AND PLAN: The patient is being set up for screening colonoscopy and positive family history for colon cancer, index case being her grandmother diagnosed in her early 60s. Prep instructions were given and questions were answered. Electronic medical record was reviewed. I thank you for the referral of this pleasant lady. Job ID: [id number] DocumentID: [id number] Dictated Date: 07/14/2022 08:59:39 Machine Clothing Worker Date: 07/14/2022 09:26:00 Dictated By: SENAIT FRANKEL MD
[~2022-07-28] VITALS: Ht 172.7 cm; Wt 138.3 kg
[~2022-07-28 08:09] MED LIST changes: +HYOS-20 PO; +RIZA10TA94 PO
[2022-07-28] MEDS ORDERED: LACTATED RINGERS 1,000 ML IV STA (08:11)
--- NOTE | 2022-07-28 08:25 | Pre-Op Note & Conscious Sedat ---
Pre-Operative Progress Note Date H&P Reviewed: Jul 28, 2022 Time H&P Reviewed: 08:24 History & Physical: H&P Reviewed, Patient Examed, No changes noted Pre-Op Diagnosis: screening Conscious Sedation Pre-Proced ASA Score 2 For ASA 3 and 4: Consider anesthesia and medical clearance. Also, for patients with a history of failed moderate sedation consider anesthesia. Airway Lungs Heart ASA score ASA 1: a normal healthy patient ASA 2: a patient with a mild systemic disease (mid diabetes, controlled hypertension, obesity ASA 3: a patient with a severe systemic disease that limits activity (angina, COPD, prior Myocardial infarction) ASA 4: a patient with an incapacitating disease that is a constant threat to life (CHF, renal failure) ASA 5: a moribund patient not expected to survive 24 hrs. (ruptured aneurysm) ASA 6: a declared brain- patient whose organs are being harvested. For emergent operations, add the letter E after the classification Mallampati Classification Grade 2 Sedation Plan Analgesia, Amnesia, Plan communicated to team members, Discussed options with patient/fam, Discussed risks with patient/fam The patient is an appropriate candidate to undergo the planned procedure, sedation, and anesthesia. The patient immediately re-assessed prior to indication. SENAIT FRANKEL MD Jul 28, 2022 08:25
[2022-07-28 08:30] VITALS: BP 195/105
[2022-07-28 08:37] VITALS: BP 175/99
[2022-07-28 09:50] VITALS: BP 163/89
[2022-07-28 09:55] VITALS: BP 149/82
--- NOTE | 2022-07-28 09:56 | Progress Note-Post Operative ---
Post-Procedure Note Physician (s)/Car Wiper (s) Physician SENAIT FRANKEL MD Pre-Procedure Diagnosis Pre-Procedure Diagnosis: screening Post-Procedure Diagnosis Post-operative diagnosis: Prior to undergoing colonoscopy digital rectal evaluation was performed. Anal sphincter tone was normal and the perianal reflexes intact. No abnormalities noted on digital inspection of the anal canal or distal rectal vault. The colonoscope was then inserted into the rectum and under direct visualization advanced to the cecum. The cecum was identified by identification of the ileocecal valve and the cecal strap. Photographic documentation was obtained. Quality of prep was good. Careful suction was made as the colonoscope was withdrawn. Findings: There were no evidence for internal or external hemorrhoids. The rectum sigmoid colon descending colon splenic flexure and transverse colon were unremarkable. Present in the distal ascending colon was a diminutive 4 mm sessile polyp. It was photographed and biopsied and ablated with no subsequent blood loss. The remainder of the ascending colon and cecum were unremarkable. A/P 1. 1 diminutive polyp was removed from the distal ascending colon. On the histo path report it was indicated as proximal a sending but this is an error in regards to location. This was an otherwise normal colonoscopy to the cecum. Considering family history would advocate consideration for repeat screening colonoscopy in 5 years as long as there are no surprises on histopathology report. CC: SENAIT Burch MD Jul 28, 2022 09:56
[2022-07-28 10:00] VITALS: BP 149/78
[2022-07-28 10:30] VITALS: BP 149/78
--- NOTE | 2022-07-28 14:24 | Anesthesia-General Post-Op ---
MAC Patient Condition Mental Status/LOC: Same as Preop Cardiovascular: Satisfactory Nausea/Vomiting: Absent Respiratory: Satisfactory Pain: Controlled Complications: Absent Post Op Complications Complications None Follow Up Care/Instructions Patient Instructions None needed. Anesthesiology Discharge Order Discharge Order Patient is doing well, no complaints, stable vital signs, no apparent adverse anesthesia problems. No complications reported per nursing. ORLANDO BLOUNT CRNA Jul 28, 2022 14:23
== END 2022-07-28 10:40 | disposition home or self-care (01) ==
LOC: ENDO 08:09
PROVIDERS: ATTEND Internal Medicine
DX: D12.2 Benign neoplasm of ascending colon (principal); E66.01 Morbid (severe) obesity due to excess calories; Z68.42 Body mass index [BMI] 45.0-49.9, adult